=== PATIENT | female | born 1985 | race Caucasian/White ===

== ENCOUNTER 2018-12-15 23:14 | Inpatient (IN) | payer OTHER ==
[2018-12-15 23:20] VITALS: BMI 25.4
--- NOTE | 2018-12-16 00:54 | PDOC ---
*Physical Exam - Vital Signs Last Vital Signs Temp Pulse Resp BP Pulse Ox 98.0 F 74 18 114/69 100 12/15/18 23:18 12/15/18 23:18 12/15/18 23:18 12/15/18 23:18 12/15/18 23:18 ED Treatment Course - LABORATORY CBC & Chemistry Diagram: 12/16/18 02:11 12/16/18 02:11 Medical Decision Making - Medical Decision Making 12/16/18 00:54 Patient seen by the advanced practice provider under my direct supervision. Ancillary testing reviewed as necessary. I agree with plan as outlined by the advanced practice provider. *DC/Admit/Observation/Transfer Diagnosis at time of Disposition: Biliary colic - Referrals - Patient Instructions - Post Discharge Activity
[2018-12-16] MEDS ORDERED: morphine CARPU-JECT 4 MG/1 ML DISP.SYRIN IVPUSH ONE (00:55)
[2018-12-16] MEDS ORDERED: SODIUM CHLORIDE 1,000 ML IV STA (00:55)
--- NOTE | 2018-12-16 00:55 | PDOC ---
History of Present Illness - General Chief Complaint: Pain Stated Complaint: ABD PAIN Time Seen by Provider: 12/16/18 00:52 History Source: Patient Exam Limitations: No Limitations - History of Present Illness Travel History: No Initial Comments: 12/16/18 00:57 HISTORY OF PRESENT ILLNESS: 33-year-old woman with past medical history of gallstones who presents emergency department for evaluation of right upper quadrant pain and nausea which worsens after eating. Patient reports the pain started on Thursday is gotten worse over the past 2 days. Patient denies any fevers or chills. No recent travel or sick contacts. PAST MEDICAL HISTORY: Gallstones SURGICAL HISTORY: Denies ALLERGIES: No known drug allergies ETOH: Denies Tobacco: Denies Illicits: Denies REVIEW OF SYSTEMS General/Constitutional: Denies fever or chills. Denies weakness, weight change. HEENT: Denies change in vision. Denies ear pain or discharge. Denies sore throat. Cardiovascular: Denies chest pain or shortness of breath. Respiratory: Denies cough, wheezing, or hemoptysis. Gastrointestinal: see HPI Genitourinary: Denies dysuria, frequency, or change in urination. Musculoskeletal: Denies joint or muscle swelling or pain. Denies neck or back pain. Skin and breasts: Denies rash or easy bruising. Neurologic: Denies headache, vertigo, loss of consciousness, or loss of sensation. Psychiatric: Denies depression or anxiety. Endocrine: Denies increased thirst. Denies abnormal weight change. Hematologic/Lymphatic: Denies anemia, easy bleeding, or history of blood clots. Allergic/Immunologic: Denies hives or skin allergy. Denies latex allergy. PHYSICAL EXAM General Appearance: Well-appearing, appropriately dressed. No apparent distress , no intoxication. HEENT: EOMI, PERRLA, normal ENT inspection, normal voice, TMs normal, pharynx normal. No conjunctival pallor. No photophobia, scleral icterus. Neck: Supple. Trachea midline. No tenderness, rigidity, carotid bruit, stridor , lymphadenopathy, or thyromegaly. Respiratory/Chest: Lungs CTAB. No shortness of breath, chest tenderness, respiratory distress, accessory muscle use. No crackles, rales, rhonchi, stridor , wheezing, dullness Cardiovascular: RRR. S1, S2. No JVD, murmur, bradycardia, tachycardia. Vascular Pulses: Dorsalis-Pedis (R): 2+, Dorsalis-Pedis (L): 2+ Gastrointestinal/Abdominal: Normal bowel sounds. Abdomen soft, non-distended. Right upper quadrant tenderness with guarding. Positive Lara sign. Lymphatic: No adenopathy, tenderness. Musculoskeletal/Extremities: Normal inspection. FROM of all extremities, normal capillary refill. Pelvis Stable. No CVA tenderness. No tenderness to extremities, pedal edema, swelling, erythema or deformity. Integumentary: Appropriate color, dry, warm. No cyanosis, erythema, jaundice or rash Neurologic: appointment scheduler II-XII intact. Fully oriented, alert. Appropriate mood/affect. Motor strength 5/5. No appreciable EOM palsy, facial droop or sensory deficit. 12/16/18 03:48 Past History - Past Medical History Allergies/Adverse Reactions: Allergies Allergy/AdvReac Type Severity Reaction Status Date / Time No Known Allergies Allergy Verified 12/15/18 23:20 Home Medications: Ambulatory Orders Calcium Carbonate [Calcium] 500 mg PO DAILY 06/12/16 Ferrous Sulfate [Feosol] 325 mg PO DAILY 06/12/16 Ursodiol [Actigall] 300 mg PO BID 10/02/16 Ibuprofen [Motrin -] 600 mg PO Q4H PRN #30 tablet 10/08/16 Asthma: No Cancer: No Cardiac Disorders: No COPD: No Diabetes: No HTN: No Seizures: No Thyroid Disease: No - Reproductive History (#): 2 Para: 2 - Suicide/Smoking/Psychosocial Hx Smoking History: Never smoked Have you smoked in the past 12 months: No Hx Alcohol Use: No Drug/Substance Use Hx: No Substance Use Type: None Hx Substance Use Treatment: No *Physical Exam - Vital Signs Last Vital Signs Temp Pulse Resp BP Pulse Ox 98.0 F 74 18 114/69 100 12/15/18 23:18 12/15/18 23:18 12/15/18 23:18 12/15/18 23:18 12/15/18 23:18 ED Treatment Course - LABORATORY CBC & Chemistry Diagram: 12/16/18 05:56 12/16/18 05:56 Medical Decision Making - Medical Decision Making 12/16/18 00:59 A/P: 33-year-old woman with right upper quadrant pain for 3 days Right upper quadrant tenderness with guarding Positive Lara sign H&P is consistent with a cholecystitis. Differential diagnoses include pancreatitis, GERD, pneumonia CBC, CMP, lipase, type and screen, coags Right upper quadrant ultrasound Morphine 4 mg IV now Zofran 4 mg IV now Normal saline 1 L 12/16/18 02:23 Ultrasound as read by imaging insulation installer: There is cholelithiasis. Gallbladder wall is not thickened. Common bile duct is 5 mm. 12/16/18 03:49 CBC testing is normal. Chemistry is notable for an AST of 800 and ALTs of 599 with an alkaline phosphatase of 181. Normal bilirubin. I'll admit the patient for biliary colic with transaminitis. 12/16/18 04:[address] Talamantes who accepts patient for admission to under Dr. Killian *DC/Admit/Observation/Transfer Diagnosis at time of Disposition: Biliary colic, Transaminitis - Discharge Dispostion Condition at time of disposition: Fair Decision to Admit order: Yes - Referrals - Patient Instructions - Post Discharge Activity
[2018-12-16] MEDS ORDERED: ONDANSETRON 4 MG/2 ML VIAL IVPUSH ONE (00:56)
[2018-12-16] MEDS ORDERED: morphine SULFATE 4 MG/ML VIAL ONE (01:46)
[2018-12-16] MEDS ORDERED: ONDANSETRON 4 MG/2 ML VIAL ONE (01:46)
[2018-12-16 02:40] LABS: BASO % 0.3 % (0-2.0); EOS % 1.3 % (0-4.5); HEMATOCRIT 35.9 % (32.4-45.2); HEMOGLOBIN 11.8 GM/dL (10.7-15.3); LYMPH % 14.7 % (8-40); MCH 29.2 pg (25.7-33.7); MCHC 32.8 g/dl (32.0-36.0); MEAN PLT VOLUME 9.2 fl (7.5-11.1); MONO % 9.8 % (3.8-10.2); NEUT % 73.9 % (42.8-82.8); PLATELET COUNT 211 K/MM3 (134-434); RBC 4.03 M/mm3 (3.60-5.2); RDW 14.3 % (11.6-15.6); WHITE BLOOD COUNT 7.5 K/mm3 (4.0-10.0)
[2018-12-16 02:42] LABS: EPI CELLS 2.3 /HPF (0-5); PH,URINE 6.5 (5.0-8.0); URINE APPEARANCE CLEAR; URINE BACTERIA 74.7 /hpf (NEGATIVE); URINE BILIRUBIN NEGATIVE (NEGATIVE); URINE CASTS 3 /hpf (0-8); URINE COLOR YELLOW; URINE GLUCOSE (UA) NEGATIVE (NEGATIVE); URINE KETONE NEGATIVE (NEGATIVE); URINE LEUK ESTERASE NEGATIVE (NEGATIVE); URINE NITRITE NEGATIVE (NEGATIVE); URINE PROTEIN NEGATIVE (NEGATIVE); URINE RBC 1 /hpf (0-4); URINE WBC 3 /hpf (0-5)
[2018-12-16 03:07] LABS: ALBUMIN 3.5 g/dl (3.4-5.0); ALK PHOS 181 U/L (45-117); ANION GAP 5 MMOL/L (8-16); BILIRUBIN,TOTAL 0.6 mg/dL (0.2-1); BLOOD UREA NITROGEN 8 mg/dL (7-18); CALCIUM 8.5 mg/dL (8.5-10.1); CHLORIDE 107 mmol/L (98-107); CO2 27 mmol/L (21-32); CREATININE 0.6 mg/dL (0.55-1.3); GLUCOSE,RANDOM 123 mg/dL (74-106); LIPASE 187 U/L (73-393); POTASSIUM 3.9 mmol/L (3.5-5.1); SGOT/AST 800 U/L (15-37); SGPT/ALT 599 U/L (13-61); SODIUM 139 mmol/L (136-145); TOT PROT 7.2 g/dl (6.4-8.2)
[2018-12-16 03:30] LABS: URINE CRYSTALS 0 /hpf; YEAST 0 (NEGATIVE)
--- NOTE | 2018-12-16 04:24 | HP ---
CHIEF COMPLAINT: Abdominal pain PCP:none HISTORY OF PRESENT ILLNESS: 33 year old female with pmhx of RA presented to ED with one day history of sever RUQ abdominal pain that started yesterday , the pain is local 03/30 , worsening with food , never had similiar episode , she reports nausea but no vomiting . denies any fever, chills, headache, blurry vision , recent cold or sick contact denies any cp, sob , denies any urinary symptoms, denies leg selling. pt reports she has RA and she took injection for that every 2 weeks. ER course was notable for: (1)CBC, CMP (2)US abdomen (3) Recent Travel: denies PAST MEDICAL HISTORY: none PAST SURGICAL HISTORY: C section X 2 , Social History:has 3 kids Smoking:denies Alcohol:denies Drugs: denies Family History:none Allergies No Known Allergies Allergy (Verified 12/15/18 23:20) HOME MEDICATIONS: Home Medications Medication Instructions Recorded Calcium Carbonate [Calcium] 500 mg PO DAILY 06/12/16 Ferrous Sulfate [Feosol] 325 mg PO DAILY 06/12/16 Ursodiol [Actigall] 300 mg PO BID 10/02/16 Ibuprofen [Motrin -] 600 mg PO Q4H PRN #30 tablet 10/08/16 REVIEW OF SYSTEMS CONSTITUTIONAL: Absent: fever, chills, diaphoresis, generalized weakness, malaise, loss of appetite, weight change HEENT: Absent: rhinorrhea, nasal congestion, throat pain, throat swelling, difficulty swallowing, mouth swelling, ear pain, eye pain, visual changes CARDIOVASCULAR: Absent: chest pain, syncope, palpitations, irregular heart rate, lightheadedness , peripheral edema RESPIRATORY: Absent: cough, shortness of breath, dyspnea with exertion, orthopnea, wheezing, stridor, hemoptysis GASTROINTESTINAL: Absent: abdominal pain, abdominal distension, nausea, vomiting, diarrhea, constipation, melena, hematochezia GENITOURINARY: Absent: dysuria, frequency, urgency, hesitancy, hematuria, flank pain, genital pain MUSCULOSKELETAL: Absent: myalgia, arthralgia, joint swelling, back pain, neck pain SKIN: Absent: rash, itching, pallor HEMATOLOGIC/IMMUNOLOGIC: Absent: easy bleeding, easy bruising, lymphadenopathy, frequent infections ENDOCRINE: Absent: unexplained weight gain, unexplained weight loss, heat intolerance, cold intolerance NEUROLOGIC: Absent: headache, focal weakness or paresthesias, dizziness, unsteady gait, seizure, mental status changes, bladder or bowel incontinence PSYCHIATRIC: Absent: anxiety, depression, suicidal or homicidal ideation, hallucinations. PHYSICAL EXAMINATION Vital Signs - 24 hr 12/15/18 23:18 Temperature 98.0 F Pulse Rate 74 Respiratory 18 Rate Blood Pressure 114/69 O2 Sat by Pulse 100 Oximetry (%) GENERAL: AAOx3 in NAD HEAD: NC/AT EYES: EOMI, Conjunctiva clear, sclera anicteric ENT: moist mucous membrane NECK: Supple, no JVD LUNGS: CTA B/L, no crackles no wheezing no accessory muscle use. HEART: RRR, NSR, normal s1, s2,no M/R/G ABDOMEN: Soft, ND, RUQ mild tenderness, +BS 4 Q, no CVA Tenderness , - Lara LOWER EXTREMITIES: no edema, +2DP pulse, NEUROLOGICAL: No focal deficit. Normal speech. gait not observed. PSYCHIATRIC: Cooperative. Good eye contact. Appropriate mood and affect. SKIN: Warm, dry, Laboratory Results - last 24 hr 12/16/18 12/16/18 12/16/18 02:11 02:11 02:11 WBC 7.5 RBC 4.03 Hgb 11.8 Hct 35.9 D MCV 89.0 MCH 29.2 MCHC 32.8 RDW 14.3 Plt Count 211 MPV 9.2 Absolute Neuts (auto) 5.6 Neutrophils % 73.9 Lymphocytes % 14.7 D Monocytes % 9.8 D Eosinophils % 1.3 Basophils % 0.3 Nucleated RBC % 0 Sodium 139 Potassium 3.9 Chloride 107 Carbon Dioxide 27 Anion Gap 5 L BUN 8 Creatinine 0.6 Creat Clearance w eGFR 116.60 Random Glucose 123 H Calcium 8.5 Total Bilirubin 0.6 AST 800 H ALT 599 H Alkaline Phosphatase 181 H Total Protein 7.2 Albumin 3.5 Lipase 187 Urine Color Yellow Urine Appearance Clear Urine pH 6.5 Ur Specific [place] 1.018 Urine Protein Negative Urine Glucose (UA) Negative Urine Ketones Negative Urine Blood 2+ H Urine Nitrite Negative Urine Bilirubin Negative Urine Urobilinogen 1.0 Ur Leukocyte Esterase Negative Urine WBC (Auto) 3 Urine RBC (Auto) 1 Urine Casts (Auto) 3 U Pathogenic Cast Auto 0 U Epithel Cells (Auto) 2.3 U Sm Round Cell (Auto) 0 Urine Crystals (Auto) 0 Urine Bacteria (Auto) 74.7 Urine Yeast (Auto) 0 CBC, BMP 12/16/18 02:11 12/16/18 02:11 EKG: NSR , QTC 442 US abdmomen: gallbladder stone but no gallbladder wall thickening , CBD 0.4 mm ASSESSMENT/PLAN: 33 year old female with no pmhx presented to ED with 1 day history of RUQ abdominal pain admitted to obs M/S for biliary colic and tranasminities # Biliary colic * RUQ pain worsening with food * US with no signs of acute cholitis or CBD dilation * IV fluids * Pain control * Zofran for nausea * MRCP * consult GI Dr Kapadia * # transaminities * AST, ALT , ALP elevated * trend lab * if no improvement will send hep panel * denies alcohol or drug use * Gi consult # FEN * NS @ 100 CC/hr * Monitor lytes * NPO for now # Proph * DVTS:SCD, Hep SC TID * GI: no need for now # Dispo * obs , M/S # full code Visit type - Emergency Visit Emergency Visit: Yes ED Registration Date: 12/16/18 Care time: The patient presented to the Emergency Department on the above date and was hospitalized for further evaluation of their emergent condition. - New Patient This patient is new to me today: Yes Date on this admission: 12/16/18 - Critical Care Critical Care patient: No
[2018-12-16] MEDS ORDERED: ONDANSETRON 4 MG/2 ML VIAL IVPUSH PRN (04:59)
[2018-12-16] MEDS ORDERED: ACETAMINOPHEN 325 MG TABLET (FP) PO PRN (04:59)
[2018-12-16] MEDS ORDERED: SODIUM CHLORIDE 1,000 ML IV SCH (05:00)
--- NOTE | 2018-12-16 05:22 | PN ---
Teaching Attending Note Name of Resident: Ata Talamantes ATTENDING PHYSICIAN STATEMENT I saw and evaluated the patient. I reviewed the resident's note and discussed the case with the resident. I agree with the resident's findings and plan as documented. SUBJECTIVE: Patient is a 33-year-old woman with past medical history of gallstones who presents emergency department for evaluation of right upper quadrant pain and nausea which worsens after eating. Patient reports the pain started on Thursday is gotten worse over the past 2 days. Patient denies any fevers or chills. Had 2 bouts of vomiting. Says pain comes and goes. No change in bowel habit, SOB, chest pain, headache, dizziness, dysuria or frequency. Her LMP stopped yesterday. She is a single mother of 3 children and the youngest is 2 years old. Denies alcohol, tobacco or any illicit drug use. OBJECTIVE: Alert Vital Signs Period Temp Pulse Resp BP Sys/Mcgregor Pulse Ox Last 24 Hr 98.0 F 74 18 114/69 98-100 HEENT: No Jaundice, eye redness or discharge, PERRLA, EOMI. Normocephalic, atraumatic. External ears are normal and hearing is grossly intact. No nasal discharge. Neck: Supple, nontender. No palpable adenopathy or thyromegaly. No JVD Chest: Good effort. Clear to auscultation and percussion. Heart: Regular. No S3, rub or murmur Abdomen: Not distended, soft, nontender and no HSM. No rebound or guarding. Normal bowel sounds. Ext: Peripheral pulses intact. No leg edema. Skin: Warm and dry. No petechiae, rash or ecchymosis. Neuro: Alert. Oriented x3. CN 2-12 grossly intact. Sensation grossly intact in all four extremities and DTR are symmetric. Psych: Appropriate mood and affect. Good insight. Current Medications Generic Name Dose Route Start Last Admin Trade Name Freq PRN Reason Stop Dose Admin Acetaminophen 650 mg 12/16/18 04:59 Tylenol - PO Q4H PRN PAIN LEVEL 1-5 Heparin Sodium (Porcine) 5,000 unit 12/16/18 06:00 Heparin - SQ TID YEHUDA Sodium Chloride 1,000 mls @ 100 mls/hr 12/16/18 05:00 Normal Saline - IV ASDIR YEHUDA Ondansetron HCl 4 mg 12/16/18 04:59 Zofran Injection IVPUSH Q6H PRN NAUSEA Home Medications Medication Instructions Recorded Calcium Carbonate [Calcium] 500 mg PO DAILY 06/12/16 Ferrous Sulfate [Feosol] 325 mg PO DAILY 06/12/16 Ursodiol [Actigall] 300 mg PO BID 10/02/16 Ibuprofen [Motrin -] 600 mg PO Q4H PRN #30 tablet 10/08/16 Abnormal Lab Results 12/16/18 12/16/18 02:11 02:11 Anion Gap 5 L Random Glucose 123 H AST 800 H ALT 599 H Alkaline Phosphatase 181 H Urine Blood 2+ H ASSESSMENT AND PLAN: 1. Cholelithiasis - Sonogram showed only cholelithiasis with no significant gall bladder abnormality. Patient is now painfree after getting morphine. No overt evidence of infection, so will withhold antibiotics. Will trend LFTs, get MRCP, hepatitis serology and consult GI. Give IV NS and zofran PRN. Check HbA1c. 2. DVT prophylaxis - Lovenox 40 mg SQ q 24 hours. 3. Advance directives - Full code
[2018-12-16] MEDS ORDERED: HEPARIN NA (PORCINE) 5,000 UNITS/ML 1ML VIAL ONE (05:53)
[2018-12-16] MEDS: HEPARIN NA (PORCINE) 5,000 UNITS/ML 1ML VIAL SQ SCH ×3 (05:53→22:22)
[2018-12-16 06:13] LABS: BASO % 0.4 % (0-2.0); EOS % 1.2 % (0-4.5); HEMATOCRIT 32.6 % (32.4-45.2); HEMOGLOBIN 10.7 GM/dL (10.7-15.3); LYMPH % 22.5 % (8-40); MCH 28.8 pg (25.7-33.7); MCHC 32.8 g/dl (32.0-36.0); MEAN CELL VOLUME 87.7 fl (80-96); MEAN PLT VOLUME 9.3 fl (7.5-11.1); MONO % 10.9 % (3.8-10.2); PLATELET COUNT 181 K/MM3 (134-434); RBC 3.71 M/mm3 (3.60-5.2); WHITE BLOOD COUNT 4.6 K/mm3 (4.0-10.0)
[2018-12-16 06:42] LABS: INR 1.04 (0.83-1.09); PROTHROMBIN TIME (PATIENT) 12.3 SEC (9.7-13.0)
[2018-12-16 06:44] LABS: ACTIVATED PTT 29.4 SECONDS (25.2-36.5)
[2018-12-16 06:46] LABS: ALK PHOS 171 U/L (45-117); AMYLASE 121 U/L (25-115); ANION GAP 7 MMOL/L (8-16); BILIRUBIN,TOTAL 0.4 mg/dL (0.2-1); BLOOD UREA NITROGEN 7 mg/dL (7-18); CALCIUM 7.6 mg/dL (8.5-10.1); CHLORIDE 111 mmol/L (98-107); CO2 24 mmol/L (21-32); CREATININE 0.6 mg/dL (0.55-1.3); GLUCOSE,RANDOM 100 mg/dL (74-106); LIPASE 1154 U/L (73-393); PHOSPHOROUS 3.7 mg/dL (2.5-4.9); SGOT/AST 982 U/L (15-37); SGPT/ALT 780 U/L (13-61); SODIUM 143 mmol/L (136-145); TOT PROT 6.1 g/dl (6.4-8.2)
[2018-12-16] MEDS ORDERED: SODIUM CHLORIDE 500 ML IV STA (07:00)
[2018-12-16] MEDS ORDERED: LACTATED RINGERS SOLUTION 1,000 ML/1,000 ML INFUS.BAG IV SCH ×3 (07:15→08:03)
[2018-12-16] MEDS ORDERED: PIPERACILLIN/TAZOB 3.375 GM 3.375 GM in DEXTROSE 5%-WATER - 50 ML IVPB ONE (08:00)
[2018-12-16] MEDS ORDERED: PIPERACILLIN/TAZOB 3.375 GM 3.375 GM/50 ML BAG IVPB ONE (08:11)
--- NOTE | 2018-12-16 10:46 | CON.GI ---
Consult Consult Specialty:: GI Referred by:: Hospitalist Service Reason for Consultation:: RUQ pain, abnormal liver chemistries - History of Present Illness Chief Complaint: RUQ pain from this past Thursday. [employer] App[employer] [id number] utilized History of Present Illness: 33F admitted through [facility] ER for evaluation of intermittent RUQ pain. The patient states being in [place] up until Thursday, when she began experiencing intermittent RUQ pain. The pain began after meals, diminishing her appetite. It became progressively more intense thursday and thursday during the day and after dinner on Thursday, she vomited. She described vomiting that night in the ER as well. Triage vitals revealed T: 98.3 P: 71 BP: 110/61. She had a normal CBC, with AST: 800 ALT: 599 ALP: 181 TB: 0.4. She was evaluated 10/07 at [facility] while . She had been on ursodiol at that time for 2 months for suspected cholestasis of . She was pain free at that time and abdominal US revealed gallstones. Liver chemistries improved throughout her admission and she remained asymptoimatic. Currently, she states that this was the first episode of this type of pain. She denies recent travel, sick contacts , known history of infection with viral hepatitides (note from 10/07 states that she appeared to have immunity to hep B), IVDU, alcohol use. Her father had alcohol induced liver cirrhosis, otherwise there is no family history of liver disease. Abdominal US on admission revealed gallstone, normal thickness of gallbladder wall and non dilated biliary tract. Sonographic vargas's sign was not mentioned. Lipase has risen this morning. Ms. Thompson is currently pain free. There is no family history of colorectal cancer or other GI malignancy. Home medication list includes ursodiol but she is not taking this. She was on prednisone up until 2 months ago. She has since been changed to Cimzia as treatment for her RA. - History Source History Provided By: Patient, Medical Record Limitations to Obtaining History: No Limitations - Past Medical History Hepatobiliary: Yes: Cholelithiasis, Other (cholestasis of during 2nd and 3rd ) Rheumatology: Yes: Rheumatoid Arthritis - Past Surgical History Past Surgical History: Yes: (x2) - Alcohol/Substance Use Hx Alcohol Use: No History of Substance Use: reports: None - Smoking History Smoking history: Never smoked Have you smoked in the past 12 months: No - Social History Usual Living Arrangement: With Significant Other ADL: Independent Occupation: former decontamination worker Place of : Other ([place]) Came to [place]year[place] 2003 History of Recent Travel: No Home Medications - Allergies Allergies/Adverse Reactions: Allergies Allergy/AdvReac Type Severity Reaction Status Date / Time No Known Allergies Allergy Verified 12/15/18 23:20 - Home Medications Home Medications: Ambulatory Orders Calcium Carbonate [Calcium] 500 mg PO DAILY 06/12/16 Ferrous Sulfate [Feosol] 325 mg PO DAILY 06/12/16 Ursodiol [Actigall] 300 mg PO BID 10/02/16 Ibuprofen [Motrin -] 600 mg PO Q4H PRN #30 tablet 10/08/16 Review of Systems - Review of Systems Constitutional: reports: Chills. denies: Fever Cardiovascular: denies: Chest Pain Respiratory: denies: Cough, SOB Gastrointestinal: reports: Abdominal Pain, Vomiting. denies: Diarrhea, Rectal Bleeding Musculoskeletal: reports: Joint Pain Physical Exam-GI Vital Signs: Vital Signs Temperature 98.1 F 12/16/18 09:02 Pulse Rate 61 12/16/18 09:02 Respiratory Rate 18 12/16/18 09:02 Blood Pressure 102/76 12/16/18 09:02 O2 Sat by Pulse Oximetry (%) 98 12/16/18 09:02 Constitutional: Yes: Calm Eyes: No: Sclera Icterus Cardiovascular: Yes: Regular Rate and Rhythm. No: Murmur Respiratory: Yes: CTA Bilaterally Gastrointestinal Inspection: Yes: Scars (Low horizontal pelvic surgical scar) ...Auscultate: Yes: Normoactive Bowel Sounds ...Palpate: Yes: Soft. No: Hepatomegaly, Splenomegaly, Tenderness ...Percussion: No: Tympanitic Edema: No (No LE edema) Neurological: Yes: Alert Labs: CBC, BMP 12/16/18 05:56 12/16/18 05:56 INR, PTT INR 1.04 (0.83-1.09) 12/16/18 05:56 Laboratory Tests 10/05/16 10/08/16 12/16/18 06:20 06:30 02:11 AST 25 D 800 H Alkaline Phosphatase 194 H 181 H ALT 237 H D 599 H Total Amylase Lipase BLAKE Screen Positive H 12/16/18 05:56 AST 982 H Alkaline Phosphatase 171 H ALT 780 H Total Amylase 121 H Lipase 1154 H BLAKE Screen Imaging - Results Ultrasound: Report Reviewed Problem List - Problems (1) Biliary colic Assessment/Plan: Suspect biliary colic +/- passage of CBD stone/sludge Ms. Thompson is currently asymptomatic and normotensive. She remains afrebrile with normal CBC (however, is on Cimzia for RA treatment)and is not jaundiced. No biliary tract dilation noted on US. Treatment plan for now: Agree withth MRI/MRCP of the abdomen for further evaluation of biliary tract NPO except meds IV Hydration: Lactated ringer at 200cc/hr. If remains asymptomatic can decrease to 150cc/hr Monitor liver chemistries and avoid hepatotoxic agents (tylenol was already discontinued) Hepatitis A/B/C serologies ordered for AM IV abx for now. Continue Zosyn (discussed with IM Senior Financial Scooby this morning) Surgical consult No indication for emergent ERCP at this time. Depending on clinical course and serologis testing, I did discuss the possibility of need for ERCP with Ms. Thompson. We discussed this via [employer] call center agent [phone]. We discussed potential risks of the procedure like but not limited to bleeding, perforation requiring surgery to repair, infection, sedation medication effects , pancreatitis, all of which could be potentially life threatening. She has agreed to the procedure if it was felt to be clinically indicated. Will follow with you Code(s): K80.50 - CALCULUS OF BILE DUCT W/O CHOLANGITIS OR CHOLECYST W/O OBST
--- NOTE | 2018-12-16 11:51 | EKG ---
Test Reason : Blood Pressure : / mmHG Vent. Rate : 062 BPM Atrial Rate : 062 BPM P-R Int : 180 ms QRS Dur : 086 ms QT Int : 436 ms P-R-T Axes : 024 020 013 degrees QTc Int : 442 ms NORMAL SINUS RHYTHM LOW VOLTAGE QRS CANNOT RULE OUT ANTERIOR INFARCT , AGE UNDETERMINED ABNORMAL ECG NO PREVIOUS ECGS AVAILABLE Confirmed by WILLIAM CHAN MD ([id number]) on 12/16/2018 11:51:13 AM Referred By: Confirmed By:WILLIAM CHAN MD
--- NOTE | 2018-12-16 12:35 | CONSULT ---
- Consultation REQUESTING PROVIDER: Low SANTIAGO CONSULT REQUEST: We have been asked to surgically evaluate this patient for symptomatic gallbladder disease. PCP:Syed Mcmahon HISTORY OF PRESENT ILLNESS: 33 y/o female with known cholelithiasis presented with 24-48 hours of post prandial nausea/vomiting and RUQ sharp and colicky abdominal pain; not relieved by or made worse by anything; she came to the ER for evaluation; she denies dark urine/light stools or any other GI// [employer] c/o; unclear why she had an US in the past that found the gallstones. Pain relieved in the ER w/morphine; she states she no longer has any pain. PMHx: rheumatoid arthritis PSHx: C-S Home Medications Medication Instructions Recorded Calcium Carbonate [Calcium] 500 mg PO DAILY 06/12/16 Ferrous Sulfate [Feosol] 325 mg PO DAILY 06/12/16 Ursodiol [Actigall] 300 mg PO BID 10/02/16 Ibuprofen [Motrin -] 600 mg PO Q4H PRN #30 tablet 10/08/16 Allergies Allergy/AdvReac Type Severity Reaction Status Date / Time No Known Allergies Allergy Verified 12/15/18 23:20 REVIEW OF SYSTEMS: CONSTITUTIONAL: Absent: fever, chills, diaphoresis, generalized weakness, malaise, loss of appetite, weight change CARDIOVASCULAR: Absent: chest pain, syncope, palpitations, irregular heart rate, lightheadedness , peripheral edema RESPIRATORY: Absent: cough, shortness of breath, dyspnea with exertion, wheezing, stridor, hemoptysis GASTROINTESTINAL: Absent: abdominal pain, abdominal distension, nausea, vomiting, diarrhea, constipation, melena, hematochezia GENITOURINARY: Absent: dysuria, frequency, urgency, hesitancy, hematuria, flank pain, genital pain MUSCULOSKELETAL: Present: myalgia, arthralgia, joint swelling, back pain, neck pain SKIN: Absent: rash, itching, pallor HEMATOLOGIC/IMMUNOLOGIC: Absent: easy bleeding, easy bruising, lymphadenopathy NEUROLOGIC: Absent: headache, focal weakness, paresthesias, dizziness, unsteady gait, seizure, mental status changes, bladder or bowel incontinence PSYCHIATRIC: Absent: anxiety, depression, suicidal or homicidal ideation, hallucinations. PHYSICAL EXAM: GENERAL: Awake, alert, and fully oriented, in no acute distress. HEAD: Normal with no signs of trauma. EYES: PERRL, sclera anicteric, conjunctiva clear. NECK: Normal ROM, supple without lymphadenopathy, JVD, or masses. ABDOMEN: Soft, nontender, not distended, normoactive bowel sounds, no guarding, no rebound, no masses. No organomegaly. No hernias. MUSCULOSKELETAL: Normal ROM at all joints. No bony deformities or tenderness. No CVA tenderness. UPPER EXTREMITIES: 2+ pulses, warm, well-perfused. No cyanosis. Cap refill <2 seconds. No peripheral edema. LOWER EXTREMITIES: 2+ pulses, warm, well-perfused. No calf tenderness. No peripheral edema. NEUROLOGICAL: Normal speech, gait not observed. PSYCH: Cooperative. Good eye contact. Appropriate mood and affect. SKIN: Warm, dry, normal turgor, no rashes or lesions noted. Vital Signs Temperature 98.1 F 12/16/18 09:02 Pulse Rate 61 12/16/18 09:02 Respiratory Rate 18 12/16/18 09:02 Blood Pressure 102/76 12/16/18 09:02 O2 Sat by Pulse Oximetry (%) 98 12/16/18 09:02 Lab Results WBC 4.6 K/mm3 (4.0-10.0) 12/16/18 05:56 RBC 3.71 M/mm3 (3.60-5.2) 12/16/18 05:56 Hgb 10.7 GM/dL (10.7-15.3) 12/16/18 05:56 Hct 32.6 % (32.4-45.2) 12/16/18 05:56 MCV 87.7 fl (80-96) 12/16/18 05:56 MCHC 32.8 g/dl (32.0-36.0) 12/16/18 05:56 RDW 14.0 % (11.6-15.6) 12/16/18 05:56 Plt Count 181 K/MM3 (134-434) 12/16/18 05:56 Sodium 143 mmol/L (136-145) 12/16/18 05:56 Potassium 4.0 mmol/L (3.5-5.1) 12/16/18 05:56 Chloride 111 mmol/L (98-107) H 12/16/18 05:56 Carbon Dioxide 24 mmol/L (21-32) 12/16/18 05:56 Anion Gap 7 MMOL/L (8-16) L 12/16/18 05:56 BUN 7 mg/dL (7-18) 12/16/18 05:56 Creatinine 0.6 mg/dL (0.55-1.3) 12/16/18 05:56 Random Glucose 100 mg/dL (74-106) 12/16/18 05:56 Calcium 7.6 mg/dL (8.5-10.1) L 12/16/18 05:56 INR 1.04 (0.83-1.09) 12/16/18 05:56 US present and past reviewed. CMP reviewed IMP:biliary coloic; possible CBD stone (passed); possible gallstone pancreatitis PLAN: Suggest NPO/IVF/MRCP; trend LFT's and amylase and lipase; will need lap daniela possible open; d/w patient; will f/u. Nicholas Love MD FACS
--- NOTE | 2018-12-16 14:21 | PN ---
Physical Exam: SUBJECTIVE: Patient seen and examined at bedside. Denies chest pain or shortness of breath. OBJECTIVE: Vital Signs Period Temp Pulse Resp BP Sys/Mcgregor Pulse Ox Last 24 Hr 97.5 F-98.2 F 61-100 18-20 87-141/32-76 98-100 GENERAL: NAD HEAD: Atraumatic/Normocephalic. EYES:EOMI Sclera Clear No scleral icterus appreciated ENT: MMM NECK: Trachea midline, full range of motion, supple. LUNGS: CTAB HEART: RRR No MRG S1S2 ABDOMEN: Negtive Lara's sign. Nontender nondistended. EXTREMITIES: No CCE NEUROLOGICAL: Cranial nerves II through XII grossly intact. . PSYCH: Normal mood, normal affect. SKIN: No jaundice appreciated Laboratory Results - last 24 hr 12/16/18 12/16/18 12/16/18 02:11 02:11 02:11 WBC 7.5 RBC 4.03 Hgb 11.8 Hct 35.9 D MCV 89.0 MCH 29.2 MCHC 32.8 RDW 14.3 Plt Count 211 MPV 9.2 Absolute Neuts (auto) 5.6 Neutrophils % 73.9 Lymphocytes % 14.7 D Monocytes % 9.8 D Eosinophils % 1.3 Basophils % 0.3 Nucleated RBC % 0 PT with INR INR PTT (Actin FS) Sodium 139 Potassium 3.9 Chloride 107 Carbon Dioxide 27 Anion Gap 5 L BUN 8 Creatinine 0.6 Creat Clearance w eGFR 116.60 Random Glucose 123 H Calcium 8.5 Phosphorus Magnesium Total Bilirubin 0.6 AST 800 H ALT 599 H Alkaline Phosphatase 181 H Total Protein 7.2 Albumin 3.5 Total Amylase Lipase 187 Urine Color Yellow Urine Appearance Clear Urine pH 6.5 Ur Specific Downs 1.018 Urine Protein Negative Urine Glucose (UA) Negative Urine Ketones Negative Urine Blood 2+ H Urine Nitrite Negative Urine Bilirubin Negative Urine Urobilinogen 1.0 Ur Leukocyte Esterase Negative Urine WBC (Auto) 3 Urine RBC (Auto) 1 Urine Casts (Auto) 3 U Pathogenic Cast Auto 0 U Epithel Cells (Auto) 2.3 U Sm Round Cell (Auto) 0 Urine Crystals (Auto) 0 Urine Bacteria (Auto) 74.7 Urine Yeast (Auto) 0 Acetaminophen 12/16/18 12/16/18 12/16/18 05:56 05:56 05:56 WBC 4.6 RBC 3.71 Hgb 10.7 Hct 32.6 MCV 87.7 MCH 28.8 MCHC 32.8 RDW 14.0 Plt Count 181 MPV 9.3 Absolute Neuts (auto) 3.0 Neutrophils % 65.0 Lymphocytes % 22.5 D Monocytes % 10.9 H Eosinophils % 1.2 Basophils % 0.4 Nucleated RBC % 0 PT with INR 12.30 INR 1.04 PTT (Actin FS) 29.4 Sodium 143 Potassium 4.0 Chloride 111 H Carbon Dioxide 24 Anion Gap 7 L BUN 7 Creatinine 0.6 Creat Clearance w eGFR 116.60 Random Glucose 100 Calcium 7.6 L Phosphorus 3.7 Magnesium 2.0 Total Bilirubin 0.4 AST 982 H ALT 780 H Alkaline Phosphatase 171 H Total Protein 6.1 L Albumin 3.0 L Total Amylase 121 H Lipase 1154 H Urine Color Urine Appearance Urine pH Ur Specific Downs Urine Protein Urine Glucose (UA) Urine Ketones Urine Blood Urine Nitrite Urine Bilirubin Urine Urobilinogen Ur Leukocyte Esterase Urine WBC (Auto) Urine RBC (Auto) Urine Casts (Auto) U Pathogenic Cast Auto U Epithel Cells (Auto) U Sm Round Cell (Auto) Urine Crystals (Auto) Urine Bacteria (Auto) Urine Yeast (Auto) Acetaminophen < 2.0 L Active Medications Generic Name Dose Route Start Last Admin Trade Name Freq PRN Reason Stop Dose Admin Heparin Sodium (Porcine) 5,000 unit 12/16/18 06:00 12/16/18 05:53 Heparin - SQ 5,000 unit TID YEHUDA Administration Lactated Ringer's 1,000 ml in 1,000 mls @ 250 mls/hr 12/16/18 08:03 12/16/18 08:12 Lactated Ringers Solution IV 250 mls/hr ASDIR YEHUDA Administration Ondansetron HCl 4 mg 12/16/18 04:59 Zofran Injection IVPUSH Q6H PRN NAUSEA ASSESSMENT/PLAN: 33 year old female with a significant past medical history of rheumatoid arthritis presented to [facility] with a 1 day history of RUQ abdominal pain. #Biliary collic; possible CBD stone (passed); possible gallstone pancreatitis * Sonogram showed only cholelithiasis with no significant gall bladder abnormality. CBD * Will trend LFTs, amylase, lipase * get MRCP. AST/ALT 982/780 respectively. Lipase 1154. * Lactated Ringer's @250cc/hr * Dr Monroe on board. P may require ERCP later on during Hospital course. Procedure explained to pt in detail by Ericka. Pt demonstrates understanding of risks and benefits of procedure. * Dr Love Surgery on board---> will need lap daniela possible open. #FEN * LR@250cc/hr * Monitor Electrolytes * NPO #DVT ppx * Lovenox 40 SQ Daily Dispo: * Med-Sug Visit type - Emergency Visit Emergency Visit: Yes ED Registration Date: 12/16/18 Care time: The patient presented to the Emergency Department on the above date and was hospitalized for further evaluation of their emergent condition. - New Patient This patient is new to me today: Yes Date on this admission: 12/16/18 - Critical Care Critical Care patient: No - Discharge Referral Referred to [facility] Med P.C.: No
--- NOTE | 2018-12-16 14:45 | PN ---
Teaching Attending Note Name of Resident: Epifanio Azar ATTENDING PHYSICIAN STATEMENT I saw and evaluated the patient. I reviewed the resident's note and discussed the case with the resident. I agree with the resident's findings and plan as documented. SUBJECTIVE: Patient is feeling better with no acute distress, pain improved. On IVF now. OBJECTIVE: Vital Signs Temperature 97.5 F L 12/16/18 13:35 Pulse Rate 100 H 12/16/18 13:35 Respiratory Rate 20 12/16/18 13:35 Blood Pressure 141/67 12/16/18 13:35 O2 Sat by Pulse Oximetry (%) 98 12/16/18 09:02 EXAM: GENERAL: The patient is awake, alert, and fully oriented, in no acute distress. HEAD: Normal with no signs of trauma. EYES: PERRL, extraocular movements intact, sclera anicteric, conjunctiva clear. ENT: Ears normal, oropharynx clear without exudates, moist mucous membranes. NECK: Trachea midline, full range of motion, supple. LUNGS: Breath sounds equal, clear to auscultation bilaterally, no wheezes, no crackles, no accessory muscle use. HEART: Regular rate and rhythm, S1, S2 without murmur, rub or gallop. ABDOMEN: Soft, mild mid-epigastric tendermness, ND, normoactive bowel sounds, no guarding, no rebound, no hepatosplenomegaly, no masses appreciated. EXTREMITIES: 2+ pulses, warm, well-perfused, no edema. NEUROLOGICAL: Cranial nerves II through XII grossly intact. Normal speech, gait not observed. PSYCH: Normal mood, normal affect. SKIN: Warm, dry, normal turgor, no rashes or lesions noted CBCD WBC 4.6 K/mm3 (4.0-10.0) 12/16/18 05:56 RBC 3.71 M/mm3 (3.60-5.2) 12/16/18 05:56 Hgb 10.7 GM/dL (10.7-15.3) 12/16/18 05:56 Hct 32.6 % (32.4-45.2) 12/16/18 05:56 MCV 87.7 fl (80-96) 12/16/18 05:56 MCHC 32.8 g/dl (32.0-36.0) 12/16/18 05:56 RDW 14.0 % (11.6-15.6) 12/16/18 05:56 Plt Count 181 K/MM3 (134-434) 12/16/18 05:56 MPV 9.3 fl (7.5-11.1) 12/16/18 05:56 CMP Sodium 143 mmol/L (136-145) 12/16/18 05:56 Potassium 4.0 mmol/L (3.5-5.1) 12/16/18 05:56 Chloride 111 mmol/L (98-107) H 12/16/18 05:56 Carbon Dioxide 24 mmol/L (21-32) 12/16/18 05:56 Anion Gap 7 MMOL/L (8-16) L 12/16/18 05:56 BUN 7 mg/dL (7-18) 12/16/18 05:56 Creatinine 0.6 mg/dL (0.55-1.3) 12/16/18 05:56 Creat Clearance w eGFR 116.60 (>60) 12/16/18 05:56 Random Glucose 100 mg/dL (74-106) 12/16/18 05:56 Calcium 7.6 mg/dL (8.5-10.1) L 12/16/18 05:56 Total Bilirubin 0.4 mg/dL (0.2-1) 12/16/18 05:56 AST 982 U/L (15-37) H 12/16/18 05:56 ALT 780 U/L (13-61) H 12/16/18 05:56 Alkaline Phosphatase 171 U/L (45-117) H 12/16/18 05:56 Total Protein 6.1 g/dl (6.4-8.2) L 12/16/18 05:56 Albumin 3.0 g/dl (3.4-5.0) L 12/16/18 05:56 Current Medications Generic Name Dose Route Start Last Admin Trade Name Freq PRN Reason Stop Dose Admin Heparin Sodium (Porcine) 5,000 unit 12/16/18 06:00 12/16/18 05:53 Heparin - SQ 5,000 unit TID YEHUDA Administration Lactated Ringer's 1,000 ml in 1,000 mls @ 250 mls/hr 12/16/18 08:03 12/16/18 08:12 Lactated Ringers Solution IV 250 mls/hr ASDIR YEHUDA Administration Ondansetron HCl 4 mg 12/16/18 04:59 Zofran Injection IVPUSH Q6H PRN NAUSEA Home Medications Medication Instructions Recorded Calcium Carbonate [Calcium] 500 mg PO DAILY 06/12/16 Ferrous Sulfate [Feosol] 325 mg PO DAILY 06/12/16 Ursodiol [Actigall] 300 mg PO BID 10/02/16 Ibuprofen [Motrin -] 600 mg PO Q4H PRN #30 tablet 10/08/16 Laboratory Tests 12/16/18 12/16/18 02:11 05:56 Random Glucose 123 H 100 AST 800 H 982 H ALT 599 H 780 H Alkaline Phosphatase 181 H 171 H Lipase 187 1154 H Acetaminophen < 2.0 L US of abdomen: Gallstones ASSESSMENT AND PLAN: Patient is a 33yo female with PMHx of RA , presented with RUQ abdominal pain. # Acute biliary colic due to Gallstones: IVF LR at 200cc/hr. NPO, given one dose of zosyn. # Acute transaminitis: will trend the LFts, continues to trend up. GI/Surgery on board, possible lap chol. as per GI MRCp of abdomen ordered. DVT Px; heparin
[2018-12-16] MEDS: MORPHINE SULFATE 2 MG/ML VIAL IVPUSH PRN (16:51)
[2018-12-16] MEDS: LACTATED RINGERS SOLUTION 1,000 ML/1,000 ML INFUS.BAG IV SCH (16:52)
[2018-12-16 22:25] LABS: ALBUMIN 3.1 g/dl (3.4-5.0); BILIRUBIN,TOTAL 1.3 mg/dL (0.2-1); TOT PROT 6.2 g/dl (6.4-8.2)
[2018-12-17] MEDS: HEPARIN NA (PORCINE) 5,000 UNITS/ML 1ML VIAL SQ SCH (05:49)
[2018-12-17 07:56] LABS: HEMATOCRIT 32.9 % (32.4-45.2); HEMOGLOBIN 10.9 GM/dL (10.7-15.3); MCH 28.8 pg (25.7-33.7); MEAN CELL VOLUME 87.3 fl (80-96); MEAN PLT VOLUME 9.4 fl (7.5-11.1); PLATELET COUNT 186 K/MM3 (134-434); RBC 3.77 M/mm3 (3.60-5.2); RDW 14.3 % (11.6-15.6); WHITE BLOOD COUNT 5.7 K/mm3 (4.0-10.0)
[2018-12-17 08:33] LABS: ALK PHOS 171 U/L (45-117); ANION GAP 6 MMOL/L (8-16); BILIRUBIN,DIRECT 1.3 mg/dL (0.0-0.2); BLOOD UREA NITROGEN 5 mg/dL (7-18); CALCIUM 8.1 mg/dL (8.5-10.1); CHLORIDE 109 mmol/L (98-107); CO2 26 mmol/L (21-32); CREATININE 0.5 mg/dL (0.55-1.3); GLUCOSE,RANDOM 80 mg/dL (74-106); MAGNESIUM 2.6 mg/dL (1.8-2.4); PHOSPHOROUS 3.1 mg/dL (2.5-4.9); POTASSIUM 3.4 mmol/L (3.5-5.1); SGOT/AST 417 U/L (15-37); SGPT/ALT 755 U/L (13-61); SODIUM 140 mmol/L (136-145); TOT PROT 6.3 g/dl (6.4-8.2)
[2018-12-17] MEDS ORDERED: POTASSIUM CHLORIDE TABS 20 MEQ TABLET.ER (FP) PO ONE (09:13)
[2018-12-17] MEDS ORDERED: INDOMETHACIN 50 MG RECTAL SUPPOSITORY PR ONE (10:16)
[2018-12-17] MEDS: KCL 10 MEQ IVPB 10 MEQ/100 ML INFUS.BAG IVPB SCH ×3 (10:21→12:14)
[2018-12-17] MEDS: LACTATED RINGERS SOLUTION 1,000 ML/1,000 ML INFUS.BAG IV SCH (11:49)
--- NOTE | 2018-12-17 12:10 | PN.GI ---
GI Progress Note Subjective: No acute events. patient states feeling well, denies abdominal pain Rising bilirubin noted on repeat labs - Objective Vital Signs: Vital Signs Temperature 97.9 F 12/17/18 06:00 Pulse Rate 59 L 12/17/18 06:00 Respiratory Rate 20 12/17/18 06:00 Blood Pressure 108/49 L 12/17/18 06:00 O2 Sat by Pulse Oximetry (%) 100 12/16/18 21:00 Constitutional: Calm Eyes: No: Sclera Icterus Cardiovascular: Yes: Regular Rate and Rhythm Respiratory: Yes: CTA Bilaterally Gastrointestinal Inspection: No: Distention ...Auscultate: Yes: Normoactive Bowel Sounds ...Palpate: Yes: Soft. No: Hepatomegaly, Splenomegaly, Tenderness ...Percussion: No: Tympanitic Edema: No (No LE edema) Neurological: Yes: Alert Labs: CBC, BMP 12/17/18 06:30 12/17/18 06:30 INR, PTT INR 1.04 (0.83-1.09) 12/16/18 05:56 Hepatic Panel Total Bilirubin 2.0 mg/dL (0.2-1) H 12/17/18 06:30 Direct Bilirubin 1.3 mg/dL (0.0-0.2) H 12/17/18 06:30 AST 417 U/L (15-37) H 12/17/18 06:30 ALT 755 U/L (13-61) H 12/17/18 06:30 Alkaline Phosphatase 171 U/L (45-117) H 12/17/18 06:30 Albumin 3.0 g/dl (3.4-5.0) L 12/17/18 06:30 - ....Imaging MRI: Image Reviewed (? of filling defect in CBD) Problem List - Problems (1) Biliary colic Assessment/Plan: Clinically well Rising bilirubin with ? of filling defect noted on MRCP images. Placed call to discuss with Dr. Yeung. left message. Awaiting callback NPO IV Hydration IV Abx Likely for ERCP this afternoon. Explained this to patient (as outlined in detail in yesterday's consultation) and discussed with Dr. Schwab. Indocin suppository Code(s): K80.50 - CALCULUS OF BILE DUCT W/O CHOLANGITIS OR CHOLECYST W/O OBST
--- NOTE | 2018-12-17 12:38 | PN ---
Progress Note (short form) - Note Progress Note: Attending Surgeon Seen in f/u; no c/o VSS AF abdo-soft; flat and non tender LFT's remain elevated and bili rising MRCP-? filling defect CBD IMP: r/o choledocholithiasis PLAN: Planning for ERCP and related procedures; if clinically stable and improved for lap daniela 12/20/18. Nicholas Love MD FACS
[2018-12-17] MEDS ORDERED: PT OWN MED DRAWER 7, Y5N ONE ×3 (13:23→21:40)
--- NOTE | 2018-12-17 14:27 | PN ---
Physical Exam: SUBJECTIVE: Patient seen and examined at bedside. No acute events overnight. Remains afebrile. OBJECTIVE: Vital Signs Period Temp Pulse Resp BP Sys/Mcgregor Pulse Ox Last 24 Hr 97.9 F-98.4 F 59-71 18-20 96-119/49-77 98-100 GENERAL: No acute distress, pleasant HEAD: Atraumatic/Normocephalic. EYES:EOMI Sclera Clear No scleral icterus appreciated ENT: MMM NECK: Trachea midline, full range of motion, supple. LUNGS: CTAB HEART: RRR No MRG S1S2 ABDOMEN: Negtive Lara's sign. Abdomen is soft and nontender EXTREMITIES: No CCE NEUROLOGICAL: Cranial nerves II through XII grossly intact. . PSYCH: Normal mood, normal affect. SKIN: No jaundice appreciated Laboratory Results - last 24 hr 12/16/18 12/17/18 12/17/18 18:30 06:30 06:30 WBC 5.7 RBC 3.77 Hgb 10.9 Hct 32.9 MCV 87.3 MCH 28.8 MCHC 33.0 RDW 14.3 Plt Count 186 MPV 9.4 Sodium 140 Potassium 3.4 L Chloride 109 H Carbon Dioxide 26 Anion Gap 6 L BUN 5 L Creatinine 0.5 L Creat Clearance w eGFR 143.91 Random Glucose 80 Calcium 8.1 L Phosphorus 3.1 Magnesium 2.6 H Total Bilirubin 1.3 H 2.0 H Direct Bilirubin 1.0 H 1.3 H AST 641 H 417 H ALT 797 H 755 H Alkaline Phosphatase 173 H 171 H Total Protein 6.2 L 6.3 L Albumin 3.1 L 3.0 L Blood Type Antibody Screen 12/17/18 10:27 WBC RBC Hgb Hct MCV MCH MCHC RDW Plt Count MPV Sodium Potassium Chloride Carbon Dioxide Anion Gap BUN Creatinine Creat Clearance w eGFR Random Glucose Calcium Phosphorus Magnesium Total Bilirubin Direct Bilirubin AST ALT Alkaline Phosphatase Total Protein Albumin Blood Type A POSITIVE Antibody Screen Negative Active Medications Generic Name Dose Route Start Last Admin Trade Name Freq PRN Reason Stop Dose Admin Heparin Sodium (Porcine) 5,000 unit 12/16/18 06:00 12/17/18 05:49 Heparin - SQ 5,000 unit TID YEHUDA Administration Lactated Ringer's 1,000 ml in 1,000 mls @ 200 mls/hr 12/16/18 16:11 12/17/18 11:49 Lactated Ringers Solution IV 200 mls/hr ASDIR YEHUDA Administration Morphine Sulfate 2 mg 12/16/18 16:34 12/16/18 16:51 Morphine Sulfate IVPUSH 2 mg Q3H PRN Administration PAIN LEVEL 6-10 Ondansetron HCl 4 mg 12/16/18 04:59 Zofran Injection IVPUSH Q6H PRN NAUSEA ASSESSMENT/PLAN: 33 year old female with a significant past medical history of rheumatoid arthritis presented to [facility] with a 1 day history of RUQ abdominal pain. #Biliary collic; possible CBD stone (passed); possible gallstone pancreatitis * Sonogram showed only cholelithiasis with no significant gall bladder abnormality. * Will trend LFTs, amylase, lipase * MRCP official read pending. Possible filling defect as well as increasing bilirubin. Will most likely be schedule for an ERCP this afternoon. * Lactated Ringer's @250cc/hr * Dr Monroe on board. ERCP Procedure explained to pt in detail by Ericka. Pt demonstrates understanding of risks and benefits of procedure. * Dr Love Surgery on board---> will need lap daniela possible open 12/20/2018 #FEN * LR@200cc/hr * Monitor Electrolytes * NPO #DVT ppx * Lovenox held in light of ERCP Dispo: * Med-Sug Visit type - Emergency Visit Emergency Visit: Yes ED Registration Date: 12/16/18 Care time: The patient presented to the Emergency Department on the above date and was hospitalized for further evaluation of their emergent condition. - New Patient This patient is new to me today: No - Critical Care Critical Care patient: No - Discharge Referral Referred to [facility] Med P.C.: No
[2018-12-17] MEDS ORDERED: CEFAZOLIN 1 GM/D5W 1 GM/50 ML BAG ONE ×2 (15:05→15:08)
[2018-12-17] MEDS ORDERED: ceFAZolin 2 GRAM PREMIX BAG IVPB ONE ×2 (15:15→15:23)
--- NOTE | 2018-12-17 15:24 | PN ---
Progress Note (short form) - Note Progress Note: TABITHA Bernal: I discusse the ERCP procedure in detail with Rosangela and informed her of the potential for such complications as perforation and hemorrhage as well as multiorgan failure related to ERCP induced pancreatitis. She has signed an informed consent. She tells me that she just had her period and cannot be . Her serum test was ordered stat and is negative. Antibiotics given. Will proceed with ERCP.
[2018-12-17] MEDS ORDERED: ONDANSETRON 4 MG/2 ML VIAL ONE (16:39)
[2018-12-17] MEDS ORDERED: ONDANSETRON 4 MG/2 ML VIAL IVPUSH PRN (16:39)
[2018-12-17] MEDS ORDERED: LACTATED RINGERS SOLUTION 1,000 ML IV SCH (16:45)
--- NOTE | 2018-12-17 16:54 | PN ---
Progress Note (short form) - Note Progress Note: GI Procedure NOte: Please see ERCP report. 3 stones found in the CBD, Two were removed after sphincterotomy was made but the 3rd could not be removed so a 7FR x 5cm length double pigtail stent was inserted. Dr. Thorne will be covering this weekend
[2018-12-17] MEDS ORDERED: LACTATED RINGERS SOLUTION 1,000 ML/1,000 ML INFUS.BAG IV SCH ×2 (17:00→23:00)
[2018-12-17 17:04] LABS: URINE APPEARANCE Clear; URINE BILIRUBIN Negative (NEGATIVE); URINE COLOR Yellow; URINE GLUCOSE (UA) Negative (NEGATIVE); URINE KETONE 3+ (NEGATIVE); URINE LEUK ESTERASE Negative (NEGATIVE); URINE NITRITE Negative (NEGATIVE); URINE PROTEIN Negative (NEGATIVE); URINE UROBILINOGEN 0.2 mg/dL (0.2-1.0)
[2018-12-17 17:11] LABS: EPI CELLS 1.4 /HPF (0-5); URINE BACTERIA 10.8 /hpf (NEGATIVE); URINE RBC 0.3 /hpf (0-4); URINE WBC 0.4 /hpf (0-5)
[2018-12-17 17:12] LABS: URINE CASTS 0.73 /hpf (0-8)
[2018-12-17] MEDS: MORPHINE SULFATE 2 MG/ML VIAL IVPUSH PRN (17:49)
[2018-12-17] MEDS ORDERED: CEFAZOLIN 2 GM/D5W 2 GM/50 ML ML IVPB SCH ×2 (18:00)
[2018-12-17] MEDS ORDERED: ceFAZolin 2 GRAM PREMIX BAG IVPB SCH (18:00)
--- NOTE | 2018-12-17 19:18 | PN ---
Teaching Attending Note Name of Resident: Epifanio Azar ATTENDING PHYSICIAN STATEMENT I saw and evaluated the patient. I reviewed the resident's note and discussed the case with the resident. I agree with the resident's findings and plan as documented. SUBJECTIVE: Patient is comfortable with no acute distress. OBJECTIVE: Vital Signs Temperature 98.0 F 12/17/18 18:00 Pulse Rate 61 12/17/18 18:00 Respiratory Rate 20 12/17/18 18:00 Blood Pressure 143/91 12/17/18 18:00 O2 Sat by Pulse Oximetry (%) 100 12/17/18 18:00 GENERAL: The patient is awake, alert, and fully oriented, in no acute distress. HEAD: Normal with no signs of trauma. EYES: PERRL, extraocular movements intact, sclera anicteric, conjunctiva clear. ENT: Ears normal, oropharynx clear without exudates, moist mucous membranes. NECK: Trachea midline, full range of motion, supple. LUNGS: Breath sounds equal, clear to auscultation bilaterally, no wheezes, no crackles, no accessory muscle use. HEART: Regular rate and rhythm, S1, S2 without murmur, rub or gallop. ABDOMEN: Soft, mid-epigastric tendermness, ND, normoactive bowel sounds, no guarding, no rebound, no masses appreciated. EXTREMITIES: 2+ pulses, warm, well-perfused, no edema. NEUROLOGICAL: Cranial nerves II through XII grossly intact. Normal speech, gait not observed. PSYCH: Normal mood, normal affect. SKIN: Warm, dry, normal turgor, no rashes or lesions noted CBCD WBC 5.7 K/mm3 (4.0-10.0) 12/17/18 06:30 RBC 3.77 M/mm3 (3.60-5.2) 12/17/18 06:30 Hgb 10.9 GM/dL (10.7-15.3) 12/17/18 06:30 Hct 32.9 % (32.4-45.2) 12/17/18 06:30 MCV 87.3 fl (80-96) 12/17/18 06:30 MCHC 33.0 g/dl (32.0-36.0) 12/17/18 06:30 RDW 14.3 % (11.6-15.6) 12/17/18 06:30 Plt Count 186 K/MM3 (134-434) 12/17/18 06:30 MPV 9.4 fl (7.5-11.1) 12/17/18 06:30 CMP Sodium 140 mmol/L (136-145) 12/17/18 06:30 Potassium 3.4 mmol/L (3.5-5.1) L 12/17/18 06:30 Chloride 109 mmol/L (98-107) H 12/17/18 06:30 Carbon Dioxide 26 mmol/L (21-32) 12/17/18 06:30 Anion Gap 6 MMOL/L (8-16) L 12/17/18 06:30 BUN 5 mg/dL (7-18) L 12/17/18 06:30 Creatinine 0.5 mg/dL (0.55-1.3) L 12/17/18 06:30 Creat Clearance w eGFR 143.91 (>60) 12/17/18 06:30 Random Glucose 80 mg/dL (74-106) 12/17/18 06:30 Calcium 8.1 mg/dL (8.5-10.1) L 12/17/18 06:30 Total Bilirubin 2.0 mg/dL (0.2-1) H 12/17/18 06:30 AST 417 U/L (15-37) H 12/17/18 06:30 ALT 755 U/L (13-61) H 12/17/18 06:30 Alkaline Phosphatase 171 U/L (45-117) H 12/17/18 06:30 Total Protein 6.3 g/dl (6.4-8.2) L 12/17/18 06:30 Albumin 3.0 g/dl (3.4-5.0) L 12/17/18 06:30 Current Medications Generic Name Dose Route Start Last Admin Trade Name Freq PRN Reason Stop Dose Admin Fentanyl 50 mcg 12/17/18 16:39 12/17/18 16:55 Sublimaze Injection - IVPUSH 12/18/18 06:00 50 mcg [id number] PRN Administration PAIN-PACU ORDER X 4 DOSES ONLY Heparin Sodium (Porcine) 5,000 unit 12/16/18 06:00 12/17/18 05:49 Heparin - SQ 5,000 unit TID YEHUDA Administration Lactated Ringer's 1,000 ml in 1,000 mls @ 250 mls/hr 12/17/18 17:00 12/17/18 17:14 Lactated Ringers Solution IV 12/17/18 23:00 250 mls/hr ASDIR YEHUDA Administration Lactated Ringer's 1,000 ml in 1,000 mls @ 200 mls/hr 12/17/18 23:00 Lactated Ringers Solution IV 12/18/18 05:00 ASDIR YEHUDA Lactated Ringer's 1,000 ml in 1,000 mls @ 175 mls/hr 12/18/18 05:00 Lactated Ringers Solution IV 12/18/18 11:00 ASDIR YEHUDA Lactated Ringer's 1,000 ml in 1,000 mls @ 150 mls/hr 12/18/18 11:00 Lactated Ringers Solution IV ASDIR YEHUDA Metronidazole 500 mg in 100 mls @ 100 mls/hr 12/17/18 21:00 Flagyl 500mg Premixed Ivpb - IVPB Q8H-IV YEHUDA Cefazolin Sodium/Dextrose 2 gm in 50 mls @ 100 mls/hr 12/17/18 21:00 Ancef 2 Gm Premixed Ivpb - IVPB Q8H-IV YEHUDA Morphine Sulfate 2 mg 12/16/18 16:34 12/17/18 17:49 Morphine Sulfate IVPUSH 2 mg Q3H PRN Administration PAIN LEVEL 6-10 Ondansetron HCl 4 mg 12/16/18 04:59 Zofran Injection IVPUSH Q6H PRN NAUSEA Home Medications Medication Instructions Recorded Calcium Carbonate [Calcium] 500 mg PO DAILY 06/12/16 Ferrous Sulfate [Feosol] 325 mg PO DAILY 06/12/16 Ursodiol [Actigall] 300 mg PO BID 10/02/16 Ibuprofen [Motrin -] 600 mg PO Q4H PRN #30 tablet 10/08/16 US of abdomen: Gallstones ASSESSMENT AND PLAN: Patient is a 33yo female with PMHx of RA , presented with RUQ abdominal pain. # s/p ERCP by , as per Dr. ferris notes: 3 stones found in the CBD, Two were removed after sphincterotomy was made but the 3rd could not be removed so a 7FR x 5cm length double pigtail stent was inserted. Dr. Lantin will see the patient in am ,covering MD for # Acute biliary colic due to Gallstones: IVF LR at 150/hr. NPO for now, flgyl/ ancef IV continue # Acute transaminitis: trend the LFts, DVT Px; heparin
[2018-12-17] MEDS ORDERED: MORPHINE SULFATE 2 MG/ML VIAL IVPUSH ONE (19:30)
[2018-12-17] MEDS: CEFAZOLIN 2 GM/D5W 2 GM/50 ML ML IVPB SCH (20:27)
[2018-12-17] MEDS: morphine SULFATE 4 MG/ML VIAL IVPUSH PRN (22:59)
[2018-12-18] MEDS: CEFAZOLIN 2 GM/D5W 2 GM/50 ML ML IVPB SCH ×3 (01:37→17:51)
[2018-12-18] MEDS ORDERED: LACTATED RINGERS SOLUTION 1,000 ML/1,000 ML INFUS.BAG IV SCH (05:00)
[2018-12-18 07:33] LABS: BASO % 0.3 % (0-2.0); EOS % 0.3 % (0-4.5); HEMATOCRIT 32.9 % (32.4-45.2); HEMOGLOBIN 10.8 GM/dL (10.7-15.3); MCH 28.8 pg (25.7-33.7); MCHC 32.9 g/dl (32.0-36.0); MEAN CELL VOLUME 87.4 fl (80-96); MEAN PLT VOLUME 9.7 fl (7.5-11.1); MONO % 8.6 % (3.8-10.2); NEUT % 73.8 % (42.8-82.8); PLATELET COUNT 177 K/MM3 (134-434); RBC 3.76 M/mm3 (3.60-5.2); RDW 13.8 % (11.6-15.6); WHITE BLOOD COUNT 9.4 K/mm3 (4.0-10.0)
--- NOTE | 2018-12-18 07:44 | PN ---
Progress Note (short form) - Note Progress Note: Attending Surgeon No c/o s/p ERCP/stone extraction and stenting; she wants to eat VSS AF abdo-benign AMlabs pending IMP:cholelithiaisi/choledocholithisais s/p ERCP and related procedures PLAN: Continue present tx,; trial of clear liquids pending labs; OR Thursday for lap daniela. Nicholas Love MD FACS
[2018-12-18] MEDS: LACTATED RINGERS SOLUTION 1,000 ML/1,000 ML INFUS.BAG IV SCH ×3 (07:58→20:37)
[2018-12-18 09:09] LABS: ALBUMIN 2.9 g/dl (3.4-5.0); ALK PHOS 153 U/L (45-117); AMYLASE 189 U/L (25-115); ANION GAP 7 MMOL/L (8-16); BILIRUBIN,DIRECT 0.4 mg/dL (0.0-0.2); BILIRUBIN,TOTAL 0.8 mg/dL (0.2-1); BLOOD UREA NITROGEN 5 mg/dL (7-18); CHLORIDE 106 mmol/L (98-107); CO2 25 mmol/L (21-32); CREATININE 0.5 mg/dL (0.55-1.3); GLUCOSE,RANDOM 82 mg/dL (74-106); LIPASE 925 U/L (73-393); MAGNESIUM 2.1 mg/dL (1.8-2.4); PHOSPHOROUS 3.2 mg/dL (2.5-4.9); POTASSIUM 3.6 mmol/L (3.5-5.1); SGOT/AST 149 U/L (15-37); SGPT/ALT 474 U/L (13-61); SODIUM 138 mmol/L (136-145); TOT PROT 6.2 g/dl (6.4-8.2)
[2018-12-18 10:09] LABS: HBSAG SCREEN Negative (Negative); HEP A AB, IGM Negative (Negative); HEP B CORE AB, TOT Negative (Negative)
--- NOTE | 2018-12-18 12:12 | PN ---
GI Progress Note Subjective: coverage for Dr Schwab S/P ERC with removal of CBD stone, asymptomatic, hungry - Objective Vital Signs: Vital Signs Temperature 98.5 F 12/18/18 06:16 Pulse Rate 69 12/18/18 06:16 Respiratory Rate 18 12/18/18 06:16 Blood Pressure 133/78 12/18/18 06:16 O2 Sat by Pulse Oximetry (%) 100 12/17/18 21:00 Constitutional: Well Nourished Eyes: Yes: Conjunctiva Clear HENT: Yes: Atraumatic Neck: Yes: Supple Cardiovascular: Yes: Regular Rate and Rhythm Respiratory: Yes: CTA Bilaterally Gastrointestinal Inspection: No: Distention ...Auscultate: Yes: Normoactive Bowel Sounds ...Palpate: Yes: Soft. No: Firm/Rigid, Guarding, Pulsatile Mass, Splenomegaly, Tenderness, Tenderness, Epigastium Labs: CBC, BMP 12/18/18 06:30 12/18/18 06:30 INR, PTT INR 1.04 (0.83-1.09) 12/16/18 05:56 Problem List - Problems (1) Choledocholithiasis Assessment/Plan: s/p erc r> ADVANCE DIET TOLERATED for cholecystectomy Thursday Code(s): K80.50 - CALCULUS OF BILE DUCT W/O CHOLANGITIS OR CHOLECYST W/O OBST
--- NOTE | 2018-12-18 13:00 | PN ---
Progress Note (short form) - Note Progress Note: Patient is feeling better with no acute distress. Pain improved post ERCP. Vital Signs Temperature 98.4 F 12/18/18 10:00 Pulse Rate 64 12/18/18 10:00 Respiratory Rate 18 12/18/18 10:00 Blood Pressure 118/63 12/18/18 10:00 O2 Sat by Pulse Oximetry (%) 100 12/17/18 21:00 Initial Vital Signs Temp Pulse Resp BP Pulse Ox 98.0 F 74 18 114/69 100 12/15/18 23:18 12/15/18 23:18 12/15/18 23:18 12/15/18 23:18 12/15/18 23:18 GENERAL: The patient is awake, alert, and fully oriented, in no acute distress. HEAD: Normal with no signs of trauma. EYES: PERRL, extraocular movements intact, sclera anicteric, conjunctiva clear. ENT: Ears normal, oropharynx clear without exudates, moist mucous membranes. NECK: Trachea midline, full range of motion, supple. LUNGS: Breath sounds equal, clear to auscultation bilaterally, no wheezes, no crackles, no accessory muscle use. HEART: Regular rate and rhythm, S1, S2 without murmur, rub or gallop. ABDOMEN: Soft, mild abdominal RUQ tendermness, ND, normoactive bowel sounds, no guarding, no rebound, no masses appreciated. EXTREMITIES: 2+ pulses, warm, well-perfused, no edema. NEUROLOGICAL: Cranial nerves II through XII grossly intact. Normal speech, gait not observed. PSYCH: Normal mood, normal affect. SKIN: Warm, dry, normal turgor, no rashes or lesions noted CBCD WBC 9.4 K/mm3 (4.0-10.0) 12/18/18 06:30 RBC 3.76 M/mm3 (3.60-5.2) 12/18/18 06:30 Hgb 10.8 GM/dL (10.7-15.3) 12/18/18 06:30 Hct 32.9 % (32.4-45.2) 12/18/18 06:30 MCV 87.4 fl (80-96) 12/18/18 06:30 MCHC 32.9 g/dl (32.0-36.0) 12/18/18 06:30 RDW 13.8 % (11.6-15.6) 12/18/18 06:30 Plt Count 177 K/MM3 (134-434) 12/18/18 06:30 MPV 9.7 fl (7.5-11.1) 12/18/18 06:30 CMP Sodium 138 mmol/L (136-145) 12/18/18 06:30 Potassium 3.6 mmol/L (3.5-5.1) 12/18/18 06:30 Chloride 106 mmol/L (98-107) 12/18/18 06:30 Carbon Dioxide 25 mmol/L (21-32) 12/18/18 06:30 Anion Gap 7 MMOL/L (8-16) L 12/18/18 06:30 BUN 5 mg/dL (7-18) L 12/18/18 06:30 Creatinine 0.5 mg/dL (0.55-1.3) L 12/18/18 06:30 Creat Clearance w eGFR 143.91 (>60) 12/18/18 06:30 Random Glucose 82 mg/dL (74-106) 12/18/18 06:30 Calcium 8.0 mg/dL (8.5-10.1) L 12/18/18 06:30 Total Bilirubin 0.8 mg/dL (0.2-1) 12/18/18 06:30 AST 149 U/L (15-37) H 12/18/18 06:30 ALT 474 U/L (13-61) H 12/18/18 06:30 Alkaline Phosphatase 153 U/L (45-117) H 12/18/18 06:30 Total Protein 6.2 g/dl (6.4-8.2) L 12/18/18 06:30 Albumin 2.9 g/dl (3.4-5.0) L 12/18/18 06:30 Current Medications Generic Name Dose Route Start Last Admin Trade Name Freq PRN Reason Stop Dose Admin Heparin Sodium (Porcine) 5,000 unit 12/16/18 06:00 12/17/18 05:49 Heparin - SQ 5,000 unit TID YEHUDA Administration Lactated Ringer's 1,000 ml in 1,000 mls @ 150 mls/hr 12/18/18 11:00 12/18/18 11:21 Lactated Ringers Solution IV 150 mls/hr ASDIR YEHUDA Administration Metronidazole 500 mg in 100 mls @ 100 mls/hr 12/17/18 21:00 12/18/18 10:02 Flagyl 500mg Premixed Ivpb - IVPB 100 mls/hr Q8H-IV YEHUDA Administration Cefazolin Sodium/Dextrose 2 gm in 50 mls @ 100 mls/hr 12/17/18 21:00 10:02 Ancef 2 Gm Premixed Ivpb - IVPB 100 mls/hr Q8H-IV YEHUDA Administration Morphine Sulfate 4 mg 12/17/18 19:31 12/17/18 22:59 Morphine Sulfate IVPUSH 4 mg Q3H PRN Administration PAIN LEVEL 6-10 Ondansetron HCl 4 mg 12/16/18 04:59 Zofran Injection IVPUSH Q6H PRN NAUSEA Home Medications Medication Instructions Recorded Calcium Carbonate [Calcium] 500 mg PO DAILY 06/12/16 Ferrous Sulfate [Feosol] 325 mg PO DAILY 06/12/16 Ursodiol [Actigall] 300 mg PO BID 10/02/16 Ibuprofen [Motrin -] 600 mg PO Q4H PRN #30 tablet 10/08/16 US of abdomen: Gallstones ASSESSMENT AND PLAN: Patient is a 33yo female with PMHx of RA , presented with RUQ abdominal pain. # Choledecholithiasis s/p ERCP by , as per Dr. ferris notes: 3 stones found in the CBD, Two were removed after sphincterotomy was made but the 3rd could not be removed so a 7FR x 5cm length double pigtail stent was inserted. patient needs to follow up with him in 3 months period for stent removal and repeat of ERCP for the 3rd stone, meanwhile patient needs to continue on Actigall 300mg po bid untill she sees in his office in [address] Thorne will see the patient in am ,covering MD for # s/p biliary colic due to Gallstones: on IVF LR at 150/hr. continue with flgyl/ ancef IV , diet. # Acute transaminitis: trend the LFts, DVT Px; heparin Visit type - Emergency Visit Emergency Visit: Yes ED Registration Date: 12/16/18 Care time: The patient presented to the Emergency Department on the above date and was hospitalized for further evaluation of their emergent condition. - New Patient This patient is new to me today: No - Critical Care Critical Care patient: No - Discharge Referral Referred to [facility] No
[2018-12-18] MEDS: HEPARIN NA (PORCINE) 5,000 UNITS/ML 1ML VIAL SQ SCH ×2 (15:39→21:01)
[2018-12-18] MEDS: morphine SULFATE 4 MG/ML VIAL IVPUSH PRN (20:52)
[2018-12-19] MEDS: CEFAZOLIN 2 GM/D5W 2 GM/50 ML ML IVPB SCH ×3 (01:10→17:51)
[2018-12-19] MEDS: LACTATED RINGERS SOLUTION 1,000 ML/1,000 ML INFUS.BAG IV SCH ×4 (04:55→23:15)
[2018-12-19] MEDS: HEPARIN NA (PORCINE) 5,000 UNITS/ML 1ML VIAL SQ SCH ×3 (05:31→21:51)
--- NOTE | 2018-12-19 07:38 | PN ---
Progress Note, Physician Chief Complaint: s/p ERCP under general anesthesia History of Present Illness: post op day one - Current Medication List Current Medications: Active Medications Heparin Sodium (Porcine) (Heparin -) 5,000 unit SQ TID YEHUDA Last Admin: 12/19/18 05:31 Dose: 5,000 unit Lactated Ringer's (Lactated Ringers Solution) 1,000 ml in 1,000 mls @ 150 mls/ hr IV ASDIR YEHUDA Last Admin: 12/19/18 04:55 Dose: 150 mls/hr Metronidazole (Flagyl 500mg Premixed Ivpb -) 500 mg in 100 mls @ 100 mls/hr IVPB Q8H-IV YEHUDA Last Admin: 12/19/18 02:45 Dose: 100 mls/hr Cefazolin Sodium/Dextrose (Ancef 2 Gm Premixed Ivpb -) 2 gm in 50 mls @ 100 mls /hr IVPB Q8H-IV YEHUDA Last Admin: 12/19/18 01:10 Dose: 100 mls/hr Morphine Sulfate (Morphine Sulfate) 4 mg IVPUSH Q3H PRN PRN Reason: PAIN LEVEL 6-10 Last Admin: 12/18/18 20:52 Dose: 4 mg Ondansetron HCl (Zofran Injection) 4 mg IVPUSH Q6H PRN PRN Reason: NAUSEA - Objective Vital Signs: Vital Signs Temperature 98.2 F 12/19/18 06:51 Pulse Rate 58 L 12/19/18 06:51 Respiratory Rate 20 12/19/18 06:51 Blood Pressure 118/77 12/19/18 06:51 O2 Sat by Pulse Oximetry (%) 99 12/18/18 21:00 Constitutional: Yes: Well Nourished Cardiovascular: Yes: WNL Respiratory: Yes: WNL Gastrointestinal: Yes: WNL Labs: CBC, BMP 12/18/18 06:30 12/18/18 06:30 INR, PTT INR 1.04 (0.83-1.09) 12/16/18 05:56 Assessment/Plan no adverse effect of anesthetic. dept of anesthesiology will sign off care at this time
--- NOTE | 2018-12-19 08:17 | PN ---
Physical Exam: SUBJECTIVE: Patient seen and examined at bedside. No acute events overnight. Denies any abdominal pain. OBJECTIVE: Vital Signs Period Temp Pulse Resp BP Sys/Mcgregor Pulse Ox Last 24 Hr 98.2 F-98.6 F 58-70 18-20 107-118/63-77 99-100 GENERAL: NAD HEAD: Atraumatic/Normocephalic. EYES: EOMI Sclera Clear No scleral icterus appreciated ENT: MMM NECK: Trachea midline, full range of motion, supple. LUNGS: CTAB HEART: RRR No MRG S1S2 ABDOMEN: Nondistended and nontender to deep palpation. Lara's sign negative EXTREMITIES: No CCE NEUROLOGICAL: Cranial nerves II through XII grossly intact. . PSYCH: Normal mood, normal affect. SKIN: No jaundice appreciated Laboratory Results - last 24 hr 12/17/18 12/18/18 12/18/18 06:30 06:30 06:30 WBC 9.4 RBC 3.76 Hgb 10.8 Hct 32.9 MCV 87.4 MCH 28.8 MCHC 32.9 RDW 13.8 Plt Count 177 MPV 9.7 Absolute Neuts (auto) 6.9 Neutrophils % 73.8 Lymphocytes % 17.0 D Monocytes % 8.6 Eosinophils % 0.3 Basophils % 0.3 Nucleated RBC % 0 Sodium 138 Potassium 3.6 Chloride 106 Carbon Dioxide 25 Anion Gap 7 L BUN 5 L Creatinine 0.5 L Creat Clearance w eGFR 143.91 Random Glucose 82 Calcium 8.0 L Phosphorus 3.2 Magnesium 2.1 Total Bilirubin 0.8 Direct Bilirubin 0.4 H AST 149 H ALT 474 H Alkaline Phosphatase 153 H C-Reactive Protein 0.4 H Total Protein 6.2 L Albumin 2.9 L Total Amylase 189 H Lipase 925 H Hep A IgM Ab Confirm Negative Hepatitis A Ab Total Positive H Hep Bs Antigen Negative Hep Bs Antibody Non reactive Hep B Core Total Ab Negative Active Medications Generic Name Dose Route Start Last Admin Trade Name Freq PRN Reason Stop Dose Admin Heparin Sodium (Porcine) 5,000 unit 12/16/18 06:00 12/19/18 05:31 Heparin - SQ 5,000 unit TID YEHUDA Administration Lactated Ringer's 1,000 ml in 1,000 mls @ 150 mls/hr 12/18/18 11:00 12/19/18 04:55 Lactated Ringers Solution IV 150 mls/hr ASDIR YEHUDA Administration Metronidazole 500 mg in 100 mls @ 100 mls/hr 12/17/18 21:00 12/19/18 02:45 Flagyl 500mg Premixed Ivpb - IVPB 100 mls/hr Q8H-IV YEHUDA Administration Cefazolin Sodium/Dextrose 2 gm in 50 mls @ 100 mls/hr 12/17/18 21:00 01:10 Ancef 2 Gm Premixed Ivpb - IVPB 100 mls/hr Q8H-IV YEHUDA Administration Morphine Sulfate 4 mg 12/17/18 19:31 12/18/18 20:52 Morphine Sulfate IVPUSH 4 mg Q3H PRN Administration PAIN LEVEL 6-10 Ondansetron HCl 4 mg 12/16/18 04:59 Zofran Injection IVPUSH Q6H PRN NAUSEA ASSESSMENT/PLAN: 33 year old female with a significant past medical history of rheumatoid arthritis presented to [facility] with a 1 day history of RUQ abdominal pain. #Biliary collic; possible CBD stone (passed); possible gallstone pancreatitis * Sonogram showed only cholelithiasis with no significant gall bladder abnormality. * MRCP revealed cholelithiasis as well as possible small stones within cystic duct. S/P ERCP w/ Dr Schwab * Lactated Ringer's @150cc/hr * Dr Monroe on board. * Dr Love Surgery on board---> scheduled for lap daniela possible open tomorrow 12/20/2018 #FEN * LR@150cc/hr * Monitor Electrolytes * NPO after midnight #DVT ppx * Heparin SQTID Dispo: * Med-Surg Visit type - Emergency Visit Emergency Visit: Yes ED Registration Date: 12/16/18 Care time: The patient presented to the Emergency Department on the above date and was hospitalized for further evaluation of their emergent condition. - New Patient This patient is new to me today: No - Critical Care Critical Care patient: No - Discharge Referral Referred to [facility] No
[2018-12-19 08:36] LABS: BASO % 0.6 % (0-2.0); EOS % 3.9 % (0-4.5); HEMOGLOBIN 10.7 GM/dL (10.7-15.3); LYMPH % 30.2 % (8-40); MCH 28.5 pg (25.7-33.7); MCHC 32.6 g/dl (32.0-36.0); MEAN CELL VOLUME 87.5 fl (80-96); MEAN PLT VOLUME 9.1 fl (7.5-11.1); MONO % 10.1 % (3.8-10.2); NEUT % 55.2 % (42.8-82.8); PLATELET COUNT 165 K/MM3 (134-434); RBC 3.77 M/mm3 (3.60-5.2); RDW 14.3 % (11.6-15.6); WHITE BLOOD COUNT 5.3 K/mm3 (4.0-10.0)
[2018-12-19 09:09] LABS: ALBUMIN 2.9 g/dl (3.4-5.0); ALK PHOS 138 U/L (45-117); ANION GAP 7 MMOL/L (8-16); BILIRUBIN,TOTAL 0.6 mg/dL (0.2-1); BLOOD UREA NITROGEN 5 mg/dL (7-18); CALCIUM 7.9 mg/dL (8.5-10.1); CHLORIDE 107 mmol/L (98-107); CO2 23 mmol/L (21-32); CREATININE 0.4 mg/dL (0.55-1.3); GLUCOSE,RANDOM 82 mg/dL (74-106); MAGNESIUM 2.2 mg/dL (1.8-2.4); PHOSPHOROUS 2.4 mg/dL (2.5-4.9); POTASSIUM 3.5 mmol/L (3.5-5.1); SGOT/AST 71 U/L (15-37); SGPT/ALT 304 U/L (13-61); SODIUM 138 mmol/L (136-145); TOT PROT 6.3 g/dl (6.4-8.2)
--- NOTE | 2018-12-19 14:57 | PN ---
Teaching Attending Note Name of Resident: Epifanio Azar ATTENDING PHYSICIAN STATEMENT I saw and evaluated the patient. I reviewed the resident's note and discussed the case with the resident. I agree with the resident's findings and plan as documented. SUBJECTIVE: Patient is feeling better with no acute distress. OBJECTIVE: Vital Signs Temperature 98.2 F 12/19/18 06:51 Pulse Rate 58 L 12/19/18 06:51 Respiratory Rate 20 12/19/18 06:51 Blood Pressure 118/77 12/19/18 06:51 O2 Sat by Pulse Oximetry (%) 98 12/19/18 09:00 GENERAL: The patient is awake, alert, and fully oriented, in no acute distress. HEAD: Normal with no signs of trauma. EYES: PERRL, extraocular movements intact, sclera anicteric, conjunctiva clear. ENT: Ears normal, oropharynx clear without exudates, moist mucous membranes. NECK: Trachea midline, full range of motion, supple. LUNGS: Breath sounds equal, clear to auscultation bilaterally, no wheezes, no crackles, no accessory muscle use. HEART: Regular rate and rhythm, S1, S2 without murmur, rub or gallop. ABDOMEN: Soft, mid-epigastric tendermness, ND, normoactive bowel sounds, no guarding, no rebound, no masses appreciated. EXTREMITIES: 2+ pulses, warm, well-perfused, no edema. NEUROLOGICAL: Cranial nerves II through XII grossly intact. Normal speech, gait not observed. PSYCH: Normal mood, normal affect. SKIN: Warm, dry, normal turgor, no rashes or lesions notedCBCD WBC 5.3 K/mm3 (4.0-10.0) 12/19/18 08:00 RBC 3.77 M/mm3 (3.60-5.2) 12/19/18 08:00 Hgb 10.7 GM/dL (10.7-15.3) 12/19/18 08:00 Hct 33.0 % (32.4-45.2) 12/19/18 08:00 MCV 87.5 fl (80-96) 12/19/18 08:00 MCHC 32.6 g/dl (32.0-36.0) 12/19/18 08:00 RDW 14.3 % (11.6-15.6) 12/19/18 08:00 Plt Count 165 K/MM3 (134-434) 12/19/18 08:00 MPV 9.1 fl (7.5-11.1) 12/19/18 08:00 CMP Sodium 138 mmol/L (136-145) 12/19/18 08:00 Potassium 3.5 mmol/L (3.5-5.1) 12/19/18 08:00 Chloride 107 mmol/L (98-107) 12/19/18 08:00 Carbon Dioxide 23 mmol/L (21-32) 12/19/18 08:00 Anion Gap 7 MMOL/L (8-16) L 12/19/18 08:00 BUN 5 mg/dL (7-18) L 12/19/18 08:00 Creatinine 0.4 mg/dL (0.55-1.3) L 12/19/18 08:00 Creat Clearance w eGFR 186.17 (>60) 12/19/18 08:00 Random Glucose 82 mg/dL (74-106) 12/19/18 08:00 Calcium 7.9 mg/dL (8.5-10.1) L 12/19/18 08:00 Total Bilirubin 0.6 mg/dL (0.2-1) 12/19/18 08:00 AST 71 U/L (15-37) H 12/19/18 08:00 ALT 304 U/L (13-61) H 12/19/18 08:00 Alkaline Phosphatase 138 U/L (45-117) H 12/19/18 08:00 Total Protein 6.3 g/dl (6.4-8.2) L 12/19/18 08:00 Albumin 2.9 g/dl (3.4-5.0) L 12/19/18 08:00 Current Medications Generic Name Dose Route Start Last Admin Trade Name Freq PRN Reason Stop Dose Admin Heparin Sodium (Porcine) 5,000 unit 12/16/18 06:00 12/19/18 14:09 Heparin - SQ 5,000 unit TID YEHUDA Administration Lactated Ringer's 1,000 ml in 1,000 mls @ 150 mls/hr 12/18/18 11:00 12/19/18 14:08 Lactated Ringers Solution IV 150 mls/hr ASDIR YEHUDA Administration Metronidazole 500 mg in 100 mls @ 100 mls/hr 12/17/18 21:00 12/19/18 10:27 Flagyl 500mg Premixed Ivpb - IVPB 100 mls/hr Q8H-IV YEHUDA Administration Cefazolin Sodium/Dextrose 2 gm in 50 mls @ 100 mls/hr 12/17/18 21:00 09:34 Ancef 2 Gm Premixed Ivpb - IVPB 100 mls/hr Q8H-IV YEHUDA Administration Morphine Sulfate 4 mg 12/17/18 19:31 12/18/18 20:52 Morphine Sulfate IVPUSH 4 mg Q3H PRN Administration PAIN LEVEL 6-10 Ondansetron HCl 4 mg 12/16/18 04:59 Zofran Injection IVPUSH Q6H PRN NAUSEA Home Medications Medication Instructions Recorded Calcium Carbonate [Calcium] 500 mg PO DAILY 06/12/16 Ferrous Sulfate [Feosol] 325 mg PO DAILY 06/12/16 Ursodiol [Actigall] 300 mg PO BID 10/02/16 Ibuprofen [Motrin -] 600 mg PO Q4H PRN #30 tablet 10/08/16 US of abdomen: Gallstones ASSESSMENT AND PLAN: Patient is a 33yo female with PMHx of RA , presented with RUQ abdominal pain. # Acute Choledecholithiasis s/p ERCP by , as per Dr. ferris notes: 3 stones found in the CBD, Two were removed after sphincterotomy was made but the 3rd could not be removed so a 7FR x 5cm length double pigtail stent was inserted. patient needs to follow up with him in 3 months period for stent removal and repeat of ERCP for the 3rd stone, meanwhile patient needs to continue on Actigall 300mg po bid until she sees in his office in [address] Thorne is covering for on IVF LR at 150/hr. continue with flgyl/ancef IV , diet. # Acute transaminitis: trending down, monitor the LFts, DVT Px; heparin for cholecystectomy by dr. anton in am
--- NOTE | 2018-12-19 15:37 | PN ---
Progress Note (short form) - Note Progress Note: s/p ERC with removal of CBD stone, asymptomatic for cholecystectomy Problem List - Problems (1) Choledocholithiasis Code(s): K80.50 - CALCULUS OF BILE DUCT W/O CHOLANGITIS OR CHOLECYST W/O OBST
[2018-12-20] MEDS: CEFAZOLIN 2 GM/D5W 2 GM/50 ML ML IVPB SCH ×2 (02:35→10:01)
[2018-12-20] MEDS: HEPARIN NA (PORCINE) 5,000 UNITS/ML 1ML VIAL SQ SCH (05:48)
[2018-12-20] MEDS ORDERED: BUPIVACAINE HCL/PF 0.5% (5MG/ML) 10 ML VIAL ONE (07:19)
[2018-12-20 07:30] LABS: HEMATOCRIT 33.2 % (32.4-45.2); HEMOGLOBIN 10.9 GM/dL (10.7-15.3); MCH 28.8 pg (25.7-33.7); MCHC 32.8 g/dl (32.0-36.0); MEAN CELL VOLUME 87.8 fl (80-96); MEAN PLT VOLUME 9.5 fl (7.5-11.1); PLATELET COUNT 168 K/MM3 (134-434); RBC 3.78 M/mm3 (3.60-5.2); RDW 14.4 % (11.6-15.6)
[2018-12-20 08:02] LABS: ANION GAP 8 MMOL/L (8-16); BLOOD UREA NITROGEN 5 mg/dL (7-18); CALCIUM 8.2 mg/dL (8.5-10.1); CHLORIDE 109 mmol/L (98-107); CO2 24 mmol/L (21-32); CREATININE 0.5 mg/dL (0.55-1.3); GLUCOSE,RANDOM 74 mg/dL (74-106); MAGNESIUM 1.9 mg/dL (1.8-2.4); PHOSPHOROUS 3.1 mg/dL (2.5-4.9); POTASSIUM 3.4 mmol/L (3.5-5.1); SODIUM 141 mmol/L (136-145)
[2018-12-20] MEDS ORDERED: MIDAZOLAM HCL 2 MG/2 ML SINGLE DOSE VIAL ONE ×2 (08:02)
[2018-12-20] MEDS ORDERED: PROPOFOL 20 ML ONE (08:10)
[2018-12-20] MEDS ORDERED: ROCURONIUM BROMIDE 50 MG/5 ML VIAL ONE (08:10)
[2018-12-20] MEDS ORDERED: BUPIVACAINE HCL/PF (5 MG/ML) 30 ML VIAL IJ ONE (09:45)
[2018-12-20] MEDS ORDERED: NEOSTIGMINE METHYLSULFATE 0.5 MG/ML - 10 ML MDV ONE (10:06)
[2018-12-20] MEDS ORDERED: ONDANSETRON 4 MG/2 ML VIAL IVPUSH PRN ×3 (10:23→10:43)
[2018-12-20] MEDS ORDERED: LACTATED RINGERS SOLUTION 1,000 ML IV SCH (10:30)
[2018-12-20] MEDS ORDERED: oxyCODONE HCL 5 MG TABLET PO PRN ×3 (10:39→10:43)
--- NOTE | 2018-12-20 10:47 | SURG ---
Surgery Fish Checker Note Fish Checker: Nancy Thakkar PA-C (Suzy) Date of Service: 12/20/18 Diagnosis: Choledocolithiasis Procedure: Laparoscopic cholecystitis I was present for the entirety of the operative procedure. For further detail, please refer to operative report. Visit type - Case Type Case Type: Scheduled - Emergency Emergency Visit: No - New patient This patient is new to me today: Yes Date on this admission: 12/20/18 - Critical Care Critical Care patient: No
--- NOTE | 2018-12-20 10:47 | OP ---
Operative Note - Note: Operative Date: 12/20/18 Pre-Operative Diagnosis: Choledocolithiasis Operation: Laparoscopic cholecystitis Findings: as dictated Post-Operative Diagnosis: Same as Pre-op Surgeon: Nicholas Love Sole Stitcher Hand: Nancy Thakkar Anesthesiologist/CLINICAL TRIAL MANAGER: Donna Cleary MD Anesthesia: General, Local Specimens Removed: Gallbladder Estimated Blood Loss (mls): 25 (ml) Drains & Tubes with Location: DONNA left in gallbladder bed Fluid Volume Replaced (mls): 1,500 (ml LR) Operative Report Dictated: Yes
[2018-12-20] MEDS: LACTATED RINGERS SOLUTION 1,000 ML IV SCH (12:24)
[2018-12-20] MEDS: oxyCODONE HCL 5 MG TABLET PO PRN ×2 (13:23→17:46)
--- NOTE | 2018-12-20 17:27 | PN ---
Physical Exam: SUBJECTIVE: Patient seen and examined at bedside. S/P cholecystectomy. Endorses generalized abdominal pain. OBJECTIVE: Vital Signs Period Temp Pulse Resp BP Sys/Mcgregor Pulse Ox Last 24 Hr 97.3 F-98.8 F 61-80 13-20 105-138/62-96 98-100 GENERAL: No acute distress HEAD: Atraumatic/Normocephalic. EYES: EOMI Sclera Clear No scleral icterus appreciated ENT: MMM NECK: Trachea midline, full range of motion, supple. LUNGS: CTAB HEART: RRR No MRG S1S2 ABDOMEN: Band aides at sites of trochar insertion. Nondistended, slightly tender to palpation EXTREMITIES: No CCE NEUROLOGICAL: Cranial nerves II through XII grossly intact. . PSYCH: Normal mood, normal affect. SKIN: No jaundice appreciated Laboratory Results - last 24 hr 12/20/18 12/20/18 06:30 06:30 WBC 5.0 RBC 3.78 Hgb 10.9 Hct 33.2 MCV 87.8 MCH 28.8 MCHC 32.8 RDW 14.4 Plt Count 168 MPV 9.5 Sodium 141 Potassium 3.4 L Chloride 109 H Carbon Dioxide 24 Anion Gap 8 BUN 5 L Creatinine 0.5 L Creat Clearance w eGFR 143.91 Random Glucose 74 Calcium 8.2 L Phosphorus 3.1 Magnesium 1.9 Active Medications Generic Name Dose Route Start Last Admin Trade Name Freq PRN Reason Stop Dose Admin Heparin Sodium (Porcine) 5,000 unit 12/21/18 14:00 Heparin - SQ TID [facility] Lactated Ringer's 1,000 mls @ 125 mls/hr 12/20/18 11:00 12/20/18 12:24 Lactated Ringers Solution IV Not Given ASDIR [facility] Ondansetron HCl 4 mg 12/20/18 10:43 Zofran Injection IVPUSH Q6H PRN NAUSEA Ondansetron HCl 4 mg 12/20/18 10:43 Zofran Injection IVPUSH 12/20/18 20:00 Q6H PRN NAUSEA AND/OR VOMITING Oxycodone HCl 5 mg 12/20/18 10:43 Roxicodone - PO Q4H PRN PAIN LEVEL 1-5 Oxycodone HCl 10 mg 12/20/18 10:43 12/20/18 13:23 Roxicodone - PO 10 mg Q4H PRN Administration PAIN LEVEL 7 - 10 ASSESSMENT/PLAN: 33 year old female with a significant past medical history of rheumatoid arthritis presented to [facility] with a 1 day history of RUQ abdominal pain. #Biliary collic; possible CBD stone (passed); possible gallstone pancreatitis * Sonogram showed only cholelithiasis with no significant gall bladder abnormality. * MRCP revealed cholelithiasis as well as possible small stones within cystic duct. S/P ERCP w/ Dr Schwab * Lactated Ringer's @125cc/hr * Dr Monroe on board. * Dr Love Surgery on board---> POD #0 LAP SARA #FEN * LR@125cc/hr * Monitor Electrolytes * Clear liquid diet #DVT ppx * Heparin SQTID Dispo: * Med-Surg Visit type - Emergency Visit Emergency Visit: Yes ED Registration Date: 12/16/18 Care time: The patient presented to the Emergency Department on the above date and was hospitalized for further evaluation of their emergent condition. - New Patient This patient is new to me today: No - Critical Care Critical Care patient: No - Discharge Referral Referred to [facility] No
--- NOTE | 2018-12-20 21:06 | PN ---
Teaching Attending Note Name of Resident: Epifanio Azar ATTENDING PHYSICIAN STATEMENT I saw and evaluated the patient. I reviewed the resident's note and discussed the case with the resident. I agree with the resident's findings and plan as documented. SUBJECTIVE: Going to OR this morning. OBJECTIVE: Vital Signs Temperature 98.3 F 12/20/18 20:25 Pulse Rate 68 12/20/18 20:25 Respiratory Rate 16 12/20/18 20:25 Blood Pressure 116/69 12/20/18 20:25 O2 Sat by Pulse Oximetry (%) 100 12/20/18 20:10 GENERAL: The patient is awake, alert, and fully oriented, in no acute distress. HEAD: Normal with no signs of trauma. EYES: PERRL, extraocular movements intact, sclera anicteric, conjunctiva clear. ENT: Ears normal, oropharynx clear without exudates, moist mucous membranes. NECK: Trachea midline, full range of motion, supple. LUNGS: Breath sounds equal, clear to auscultation bilaterally, no wheezes, no crackles, no accessory muscle use. HEART: Regular rate and rhythm, S1, S2 without murmur, rub or gallop. ABDOMEN: Soft, mild tendermness, ND, normoactive bowel sounds, no guarding, no rebound, no masses appreciated. EXTREMITIES: 2+ pulses, warm, well-perfused, no edema. NEUROLOGICAL: Cranial nerves II through XII grossly intact. Normal speech, gait not observed. PSYCH: Normal mood, normal affect. SKIN: Warm, dry, normal turgor, no rashes or lesions noted CBCD WBC 5.0 K/mm3 (4.0-10.0) 12/20/18 06:30 RBC 3.78 M/mm3 (3.60-5.2) 12/20/18 06:30 Hgb 10.9 GM/dL (10.7-15.3) 12/20/18 06:30 Hct 33.2 % (32.4-45.2) 12/20/18 06:30 MCV 87.8 fl (80-96) 12/20/18 06:30 MCHC 32.8 g/dl (32.0-36.0) 12/20/18 06:30 RDW 14.4 % (11.6-15.6) 12/20/18 06:30 Plt Count 168 K/MM3 (134-434) 12/20/18 06:30 MPV 9.5 fl (7.5-11.1) 12/20/18 06:30 CMP Sodium 141 mmol/L (136-145) 12/20/18 06:30 Potassium 3.4 mmol/L (3.5-5.1) L 12/20/18 06:30 Chloride 109 mmol/L (98-107) H 12/20/18 06:30 Carbon Dioxide 24 mmol/L (21-32) 12/20/18 06:30 Anion Gap 8 MMOL/L (8-16) 12/20/18 06:30 BUN 5 mg/dL (7-18) L 12/20/18 06:30 Creatinine 0.5 mg/dL (0.55-1.3) L 12/20/18 06:30 Creat Clearance w eGFR 143.91 (>60) 12/20/18 06:30 Random Glucose 74 mg/dL (74-106) 12/20/18 06:30 Calcium 8.2 mg/dL (8.5-10.1) L 12/20/18 06:30 Total Bilirubin 0.6 mg/dL (0.2-1) 12/19/18 08:00 AST 71 U/L (15-37) H 12/19/18 08:00 ALT 304 U/L (13-61) H 12/19/18 08:00 Alkaline Phosphatase 138 U/L (45-117) H 12/19/18 08:00 Total Protein 6.3 g/dl (6.4-8.2) L 12/19/18 08:00 Albumin 2.9 g/dl (3.4-5.0) L 12/19/18 08:00 Current Medications Generic Name Dose Route Start Last Admin Trade Name Freq PRN Reason Stop Dose Admin Heparin Sodium (Porcine) 5,000 unit 12/21/18 14:00 Heparin - SQ TID [facility] Lactated Ringer's 1,000 mls @ 125 mls/hr 12/20/18 11:00 12/20/18 12:24 Lactated Ringers Solution IV Not Given ASDIR YEHUDA Ondansetron HCl 4 mg 12/20/18 10:43 Zofran Injection IVPUSH Q6H PRN NAUSEA Oxycodone HCl 5 mg 12/20/18 10:43 Roxicodone - PO Q4H PRN PAIN LEVEL 1-5 Oxycodone HCl 10 mg 12/20/18 10:43 12/20/18 17:46 Roxicodone - PO 10 mg Q4H PRN Administration PAIN LEVEL 7 - 10 Home Medications Medication Instructions Recorded Calcium Carbonate [Calcium] 500 mg PO DAILY 06/12/16 Ferrous Sulfate [Feosol] 325 mg PO DAILY 06/12/16 Ursodiol [Actigall] 300 mg PO BID 10/02/16 Ibuprofen [Motrin -] 600 mg PO Q4H PRN #30 tablet 10/08/16 US of abdomen: Gallstones ASSESSMENT AND PLAN: Patient is a 33yo female with PMHx of RA , presented with RUQ abdominal pain. # Acute Choledecholithiasis going for cholecystectomy today by , s/p ERCP by , as per Dr. ferris notes: 3 stones found in the CBD, Two were removed after sphincterotomy was made but the 3rd could not be removed so a 7FR x 5cm length double pigtail stent was inserted. patient needs to follow up with him in 3 months period for stent removal and repeat of ERCP for the 3rd stone, meanwhile patient needs to continue on Actigall 300mg po bid untill she sees in his office in [address] Thorne will see the patient in am ,covering MD for # s/p biliary colic due to Gallstones: npo, continue IVF LR at 125ml/hr. continue with flgyl/ancef IV, npo for surgery. # Acute transaminitis: trend the LFts, DVT Px; off heparin for sx.
--- NOTE | 2018-12-20 23:35 | OP ---
DATE OF OPERATION: 12/20/2018 PREOPERATIVE DIAGNOSIS: Cholelithiasis and choledocholithiasis. POSTOPERATIVE DIAGNOSIS: Cholelithiasis and choledocholithiasis. PROCEDURE: Laparoscopic cholecystectomy. SURGEON: Nicholas Love M.D. CARTON STAPLER: Estephania Rogers ANESTHESIA: General anesthesia. OPERATIVE FINDINGS: There was cholelithiasis and adhesions to the gallbladder. The rest of the findings were unremarkable. PROCEDURE: The patient was placed on the operating table in the supine position and after the induction of general anesthesia the patient's abdomen was prepped with ChloraPrep and draped in sterile fashion. A timeout was taken and pneumoperitoneum established above the umbilicus using a Veress needle. Once 15 mmHg of pressure were obtained, a 5-mm port was placed at the umbilicus and additional lateral 5-mm ports and a subxiphoid 12-mm port. Laparoscopy was carried out and the previously noted findings were observed. Dissection was begun at the neck of the gallbladder where the peritoneum was opened medially and laterally using blunt dissection and electrocautery. The cystic duct was identified coursing from the neck of the gallbladder towards the common bile duct and it was dissected using blunt dissection proximally and distally for length. Similarly, the artery was identified and dissected proximally and distally for length. A critical view of safety was taken and then the duct and the artery were clipped twice proximally and twice distally with large hemoclips. The duct and artery were then serially divided using Endoshears. Hemostasis was checked for and noted to be good and then the gallbladder was removed from the liver bed in a retrograde fashion using electrocautery. Prior to removal from the edge of the liver, hemostasis in the liver bed was again checked for and noted to be good and then the gallbladder removed from the edge of the liver, placed in an EndoCatch, and brought out through the subxiphoid port. Pneumoperitoneum was reestablished. Copious irrigation was carried out with saline. Hemostasis was verified again. A 10-mm Casper-Good drain was placed in the right hepatorenal fossa and brought out through 1 of the 5-mm ports and secured to the skin with 2-0 silk suture. All port sites were removed under laparoscopic vision without evidence of bleeding from the port sites. The port sites were infiltrated with 0.5% Marcaine and the skin edges reapproximated with 4-0 Biosyn in a subcuticular continuous fashion. Steri-Strips and Band-Aid dressings were placed. The drain was connected to bulb suction and then the patient aroused from general anesthesia and transferred to the postanesthesia care unit in stable condition, awake and alert. ESTIMATED BLOOD LOSS: 25 mL. REPLACEMENT: Crystalloid. DRAINS: One 10-mm Casper-Good in gallbladder fossa. SPECIMEN: Gallbladder and contents to Pathology. I, Nicholas Love, was physically present in the operating room from the time the patient was placed on the operating table until she was transferred to the postanesthesia care unit in [place]. MD DIRK Yoder/[id number]
[2018-12-21] MEDS: LACTATED RINGERS SOLUTION 1,000 ML IV SCH ×2 (04:13→11:52)
[2018-12-21 07:05] LABS: BASO % 0.4 % (0-2.0); EOS % 4.2 % (0-4.5); HEMATOCRIT 30.1 % (32.4-45.2); HEMOGLOBIN 10.1 GM/dL (10.7-15.3); MCHC 33.6 g/dl (32.0-36.0); MEAN CELL VOLUME 89.3 fl (80-96); MEAN PLT VOLUME 10.1 fl (7.5-11.1); NEUT % 60.4 % (42.8-82.8); PLATELET COUNT 159 K/MM3 (134-434); RBC 3.37 M/mm3 (3.60-5.2); RDW 14.1 % (11.6-15.6); WHITE BLOOD COUNT 6.4 K/mm3 (4.0-10.0)
[2018-12-21 07:56] LABS: ALBUMIN 2.7 g/dl (3.4-5.0); AMYLASE 47 U/L (25-115); ANION GAP 7 MMOL/L (8-16); BILIRUBIN,TOTAL 0.5 mg/dL (0.2-1); BLOOD UREA NITROGEN 5 mg/dL (7-18); CHLORIDE 108 mmol/L (98-107); CO2 25 mmol/L (21-32); CREATININE 0.5 mg/dL (0.55-1.3); GLUCOSE,RANDOM 76 mg/dL (74-106); LIPASE 180 U/L (73-393); POTASSIUM 3.4 mmol/L (3.5-5.1); SGOT/AST 44 U/L (15-37); SGPT/ALT 170 U/L (13-61); SODIUM 140 mmol/L (136-145); TOT PROT 5.7 g/dl (6.4-8.2)
[2018-12-21 07:57] LABS: ALK PHOS 108 U/L (45-117)
--- NOTE | 2018-12-21 07:59 | PN ---
Progress Note (short form) - Note Progress Note: POD 1, s/p laparoscopic cholecystectomy Pt seen and examined. States she is doing well this morning. Had some pain overnight, controlled with pain regimen. Tolerating water, no n/v, Has been oob to restroom, voiding without issue. Denies cp/sob, calf pain. Vital Signs Temp 98.3 F 12/21/18 07:23 Pulse 74 12/21/18 07:23 Resp 20 12/21/18 07:23 BP 112/67 12/21/18 07:23 Pulse Ox 100 12/20/18 20:10 Intake & Output 12/20/18 12/20/18 12/21/18 11:59 23:59 11:59 Intake Total 6200 1575 1075 Output Total 2665 70 5 Balance 3535 1505 1070 Intake: IV 3450 1375 875 LACTATED RINGERS SOLUTION 1650 1,000 ml In 1,000 ml @ 150 mls/hr IV ASDIR YEHUDA Rx#:[id number] Lactated Ringers Solution 1375 875 1,000 ml @ 125 mls/hr IV ASDIR YEHUDA Rx#: [id number] IVPB 150 Oral 200 200 Other 2600 Output: Drainage 40 70 5 Right Abdomen 70 5 Urine 0 Estimated Blood Loss 25 Other 2600 Other: Voiding Method Toilet Indwelling Catheter # Unmeasured Voids Void 1 1 Bowel Movement No No CBC, BMP 12/21/18 06:00 Gen: awake, alert, nad Resp: unlabored on RA Abdo: soft, +ttp appropriate to status, dressings c/d/i with exception of drain dressing which has mild serosanguinous drainage (removed and changed to new 4x4/ tegaderm). Donna with no drainage in reservoir (just emptied), serosanguinous drainage in tubing (stripped). A/P: 33 y/o F w/ no PMHx, admitted 12/16 with abdominal pain, found to have Choledocolithiasis s/p ERCP with sphincterotomy/papillotomy, removal of calculus , and stent placement 12/17 now s/p Laparoscopic cholecystitis. Afebrile, VSS DONNA output 30ml yesterday afternoon, 5ml overnight (serosanguinous) -Keep drain in place and Monitor Donna output -F/U AM labs, replete potassium -oob ad aleyda -Advance diet as tolerated -Pain control as ordered d/w attending Dr Love DONNA drain removed this afternoon without issue, pt tolerated well. New dressing placed over ostium. D.C instructions reviewed with pt. Pt verbalized understanding. Planned for d/c later today. d/w attending Dr Love
[2018-12-21] MEDS ORDERED: KETOROLAC TROMETHAMINE 30 MG/1 ML VIAL IVPUSH PRN (08:03)
--- NOTE | 2018-12-21 08:40 | PN ---
Progress Note (short form) - Note Progress Note: Anesthesia postop note 33 y/o F s/p GA for Lap daniela POD#1, vss, aaox3, no complaints No anesthesia complications.
--- NOTE | 2018-12-21 08:48 | PN ---
Teaching Attending Note Name of Resident: Epifanio Azar ATTENDING PHYSICIAN STATEMENT I saw and evaluated the patient. I reviewed the resident's note and discussed the case with the resident. I agree with the resident's findings and plan as documented. SUBJECTIVE: Patient is s/p sx, feeling better, and wants to go home. OBJECTIVE: Vital Signs Temperature 98.3 F 12/21/18 07:23 Pulse Rate 74 12/21/18 07:23 Respiratory Rate 20 12/21/18 07:23 Blood Pressure 112/67 12/21/18 07:23 O2 Sat by Pulse Oximetry (%) 100 12/20/18 20:10 GENERAL: The patient is awake, alert, and fully oriented, in no acute distress. HEAD: Normal with no signs of trauma. EYES: PERRL, extraocular movements intact, sclera anicteric, conjunctiva clear. ENT: Ears normal, oropharynx clear without exudates, moist mucous membranes. NECK: Trachea midline, full range of motion, supple. LUNGS: Breath sounds equal, clear to auscultation bilaterally, no wheezes, no crackles, no accessory muscle use. HEART: Regular rate and rhythm, S1, S2 without murmur, rub or gallop. ABDOMEN: Soft, mild tendermness at the incision site, ND, normoactive bowel sounds, no guarding, no rebound, no masses appreciated. EXTREMITIES: 2+ pulses, warm, well-perfused, no edema. NEUROLOGICAL: Cranial nerves II through XII grossly intact. Normal speech, gait not observed. PSYCH: Normal mood, normal affect. SKIN: Warm, dry, normal turgor, no rashes or lesions noted CBCD WBC 6.4 K/mm3 (4.0-10.0) 12/21/18 06:00 RBC 3.37 M/mm3 (3.60-5.2) L 12/21/18 06:00 Hgb 10.1 GM/dL (10.7-15.3) L 12/21/18 06:00 Hct 30.1 % (32.4-45.2) L 12/21/18 06:00 MCV 89.3 fl (80-96) 12/21/18 06:00 MCHC 33.6 g/dl (32.0-36.0) 12/21/18 06:00 RDW 14.1 % (11.6-15.6) 12/21/18 06:00 Plt Count 159 K/MM3 (134-434) 12/21/18 06:00 MPV 10.1 fl (7.5-11.1) 12/21/18 06:00 CMP Sodium 140 mmol/L (136-145) 12/21/18 06:00 Potassium 3.4 mmol/L (3.5-5.1) L 12/21/18 06:00 Chloride 108 mmol/L (98-107) H 12/21/18 06:00 Carbon Dioxide 25 mmol/L (21-32) 12/21/18 06:00 Anion Gap 7 MMOL/L (8-16) L 12/21/18 06:00 BUN 5 mg/dL (7-18) L 12/21/18 06:00 Creatinine 0.5 mg/dL (0.55-1.3) L 12/21/18 06:00 Creat Clearance w eGFR 143.91 (>60) 12/21/18 06:00 Random Glucose 76 mg/dL (74-106) 12/21/18 06:00 Calcium 8.0 mg/dL (8.5-10.1) L 12/21/18 06:00 Total Bilirubin 0.5 mg/dL (0.2-1) 12/21/18 06:00 AST 44 U/L (15-37) H 12/21/18 06:00 ALT 170 U/L (13-61) H 12/21/18 06:00 Alkaline Phosphatase 108 U/L (45-117) 12/21/18 06:00 Total Protein 5.7 g/dl (6.4-8.2) L 12/21/18 06:00 Albumin 2.7 g/dl (3.4-5.0) L 12/21/18 06:00 Current Medications Generic Name Dose Route Start Last Admin Trade Name Freq PRN Reason Stop Dose Admin Heparin Sodium (Porcine) 5,000 unit 12/21/18 14:00 Heparin - SQ TID YEHUDA Lactated Ringer's 1,000 mls @ 125 mls/hr 12/20/18 11:00 12/21/18 04:13 Lactated Ringers Solution IV 125 mls/hr ASDIR YEHUDA Administration Ketorolac Tromethamine 30 mg 12/21/18 08:03 Toradol Injection - IVPUSH 12/26/18 08:02 Q6H PRN PAIN LEVEL 1-5 Ondansetron HCl 4 mg 12/20/18 10:43 Zofran Injection IVPUSH Q6H PRN NAUSEA Oxycodone HCl 5 mg 12/20/18 10:43 Roxicodone - PO Q4H PRN PAIN LEVEL 1-5 Oxycodone HCl 10 mg 12/20/18 10:43 12/20/18 17:46 Roxicodone - PO 10 mg Q4H PRN Administration PAIN LEVEL 7 - 10 Home Medications Medication Instructions Recorded Calcium Carbonate [Calcium] 500 mg PO DAILY 06/12/16 Ferrous Sulfate [Feosol] 325 mg PO DAILY 06/12/16 Ursodiol [Actigall] 300 mg PO BID 10/02/16 Ibuprofen [Motrin -] 600 mg PO Q4H PRN #30 tablet 10/08/16 US of abdomen: Gallstones ASSESSMENT AND PLAN: Patient is a 33yo female with PMHx of RA , presented with RUQ abdominal pain. # POD#1 s/p cholecystectomy by , follow with dr. anton within a week period. # s/p ERCP by , as per Dr. ferris notes: 3 stones found in the CBD, Two were removed after sphincterotomy was made but the 3rd could not be removed so a 7FR x 5cm length double pigtail stent was inserted. patient needs to follow up with him in 3 months period for stent removal and repeat of ERCP for the 3rd stone, meanwhile patient needs to continue on Actigall 300mg po bid until she sees in his office in 3 months period. # Acute transaminitis: improving. follow with primary within 1 week and have them repeat the LFts, will discharge the patient home on Tramadol and actigall follow with within a week period follow with in 3 months but call an appointment by next week. for the stent removal and the 3rd stone removal.
[2018-12-21] MEDS ORDERED: POTASSIUM CHLORIDE TABS 20 MEQ TABLET.ER (FP) PO ONE (09:30)
[2018-12-21 10:58] VITALS: BP 116/65; PULSE 65; TEMP 98
--- NOTE | 2018-12-21 13:41 | DS ---
Physical Exam: SUBJECTIVE: Patient seen and examined at bedside. no acute events overnight. POD #1 Lap Marii. OBJECTIVE: Vital Signs Period Temp Pulse Resp BP Sys/Mcgregor Pulse Ox Last 24 Hr 97.9 F-98.9 F 65-80 16-20 112-122/65-78 100 PHYSICAL EXAM GENERAL: No acute distress HEAD: Atraumatic/Normocephalic. EYES: EOMI Sclera Clear No scleral icterus appreciated ENT: MMM NECK: Trachea midline, full range of motion, supple. LUNGS: CTAB HEART: RRR No MRG S1S2 ABDOMEN: Band aides at sites of trochar insertion. NDNT. DONNA drain removed EXTREMITIES: No CCE NEUROLOGICAL: Cranial nerves II through XII grossly intact. . PSYCH: Normal mood, normal affect. SKIN: No jaundice appreciated LABS Laboratory Results - last 24 hr 12/21/18 12/21/18 06:00 06:00 WBC 6.4 RBC 3.37 L Hgb 10.1 L Hct 30.1 L MCV 89.3 MCH 30.0 MCHC 33.6 RDW 14.1 Plt Count 159 MPV 10.1 Absolute Neuts (auto) 3.9 Neutrophils % 60.4 Lymphocytes % 24.0 D Monocytes % 11.0 H Eosinophils % 4.2 Basophils % 0.4 Nucleated RBC % 0 Sodium 140 Potassium 3.4 L Chloride 108 H Carbon Dioxide 25 Anion Gap 7 L BUN 5 L Creatinine 0.5 L Creat Clearance w eGFR 143.91 Random Glucose 76 Calcium 8.0 L Total Bilirubin 0.5 AST 44 H ALT 170 H Alkaline Phosphatase 108 Total Protein 5.7 L Albumin 2.7 L Total Amylase 47 Lipase 180 HOSPITAL COURSE: Date of Admission:12/16/18 Pt is a 33 year old female with a significant past medical history of rheumatoid arthritis presented to [facility] with a 1 day history of RUQ abdominal pain. Pt underwent imaging of her abdomen with an MRCP. Imaging revealed a distended gallbladder with multiple large gallstones in addition to small stones within the cystic duct with questionable trace pericholecystic fluid. Pt was placed on lactated ringer at 200cc/hr. GI and Surgery were consulted. AST and ALT were 982 and 797 at their respective zeniths; t bili was 2.0. Pt subsequently underwent an ERCP with Dr Schwab which yielded 2 stones from the common bile duct. A third stone was unable to be attained therefore a 7fr 3 cm stent was placed by the G.I physician. Pt was placed on Flagyl and Ancef. Furthermore, pt underwent a cholecystectomy with Dr Love which was uneventful. Pt was discharged the following day. Date of Discharge: 12/21/18 Minutes to complete discharge: 35 Discharge Summary Reason For Visit: ELEVATED TRANSAMINASE MEASUREMENT BILIARY COLIC Current Active Problems Biliary colic (Acute) Choledocholithiasis (Acute) Transaminitis (Acute) Condition: Stable - Instructions Diet, Activity, Other Instructions: You presented to the hospital due to abdominal pain. you underwent a cholecystectomy with Dr Oscar Love. you also underwent a procedure called an ERCP. A stent was placed inside you. this stent will have to be removed by in 3 months period. Please take STOOL SOFTENER ;COLACE ,TO AVOID CONSTIPATION. Follow with your primary within a week period for repeat labs. need to repeat CMP, cbc in a week period. Please follow up with the following physicians: Dr Nicholas Love this week. Please make an appointment to see Dr Love. His office number is provided in your discharge papers Dr Emperatriz Schwab. You have a stent inside you. This stent will have to be removed. Please follow up with your primary care doctor. If you do not have a primary care doctor, you may follow up at our clinic. A referral has been provided in your discharge papers. Dr Cunha [address], [place]. [phone] Dr. Love Discharge Instructions Dear DAVIS MATIAS, Post Operative Instructions Physical activity Resume your normal everyday activity as tolerated no heavy lifting or exercise until seen by your surgeon. You may walk unlimited amounts of and climb stairs. You may resume driving the car when you feel safe and comfortable behind the wheel. Wound care If you have a bandage, leave it on, and keep dry for 48 - 72 hours. After that time discard the outer bandage. If there are tapes on the skin under the outer bandage, leave them in place. They will peel off in the next 7 to 10 days. Do Not peel them off. You may shower 2 days after surgery. If there are tapes present on the skin, they can get wet. Diet There are no dietary restrictions. Eat healthy, high-fiber foods. Drink 6 to 8 glasses of liquid each day. This will assist in keeping your bowels are regular. Pain management You may take Tylenol or acetaminophen or Ibuprofen (for example, Motrin, Advil etc.) Any pain prescription medication ordered should be taken as prescribed for moderate to severe pain. Do not drive, drink alcohol or operate heavy machinery while taking narcotic pain medications. Call Dr. Love for any of the following: Severe pain not relieved by medication Fever of 101 or higher Excessive bleeding or drainage on dressing Inability to urinate Call the office at [phone] for a post operative appointment in 7 - 10 days. PLEASE RETURN TO THE EMERGENCY ROOM IF YOU BEGIN TO EXPERIENCE CHEST PAIN, SHORTNESS OF BREATH, NAUSEA/VOMITING, OR FEVERS. Referrals: Hipolito Cunha MD [Staff Physician] - 1 Week Nicholas Love MD [Staff Physician] - 1 Week Emperatriz Schwab MD [Staff Physician] - 1 Week (CALL MD'S OFFICE FOR REPEAT ERCP.) Disposition: HOME - Home Medications Comprehensive Discharge Medication List: Ambulatory Orders Calcium Carbonate [Calcium] 500 mg PO DAILY 06/12/16 Ferrous Sulfate [Feosol] 325 mg PO DAILY 06/12/16 Ursodiol [Actigall] 300 mg PO BID 10/02/16 Ibuprofen [Motrin -] 600 mg PO Q4H PRN #30 tablet 10/08/16 This patient is new to me today: No Emergency Visit: Yes ED Registration Date: 12/16/18 Care time: The patient presented to the Emergency Department on the above date and was hospitalized for further evaluation of their emergent condition. Critical Care patient: No - Discharge Referral Referred to [facility] Med P.C.: No
[2018-12-21] MEDS ORDERED: HEPARIN NA (PORCINE) 5,000 UNITS/ML 1ML VIAL SQ SCH (14:00)
--- NOTE | 2018-12-21 17:02 | PATH ---
Surgical Pathology Report Patient Name: DAVIS MATIAS Med. Rec. #: [id number] /Age/Gender: 1985 (Age: 33) / F Account: [id number] Location: [facility] MED/SURG Taken: 12/20/2018 Received: 12/20/2018 Reported: 12/21/2018 Physicians: MD Benny Yoder MD Specimen(s) Received GALLBLADDER Clinical History Choledocholithiasis Final Diagnosis GALLBLADDER, CHOLECYSTECTOMY: CHRONIC CHOLECYSTITIS AND CHOLESTEROLOSIS. CHOLELITHIASIS. Electronically Signed Telma Callahan M.D. Gross Description Received in formalin, labeled "gallbladder," is a 6.8 x 3.2 x 2.3 cm. gallbladder with a 0.2 cm. in length portion of cystic duct attached. The outer surface is tamayo-pink with a focal defect and varies from smooth to shaggy. The lumen contains green, tenacious bile as well as 4 green, irregular choleliths ranging from 0.6-2.0 cm in greatest dimension. The mucosa is tamayo-green and focally eroded. The wall of the gallbladder ranges from 0.1-0.3 cm. in thickness. Machine Paint Mixer sections are submitted in one cassette. /12/20/201812/20/2018
== END 2018-12-21 16:42 | disposition home or self-care (01) | DRG 263 ==
LOC: JER 23:14 → JERBED 12-16 04:53 → OBSVTOIN 12-16 07:37 → J8W 12-16 09:38
PROVIDERS: ADMIT Internal Medicine; ATTEND Internal Medicine
PROC: 0F798DZ Dilation of Common Bile Duct with Intraluminal Device, Via Natural or Artificial Opening Endoscopic (ICD-10-PCS; 2018-12-17)
PROC: 0FC98ZZ Extirpation of Matter from Common Bile Duct, Via Natural or Artificial Opening Endoscopic (ICD-10-PCS; principal; 2018-12-17 16:00)
PROC: 0FT44ZZ Resection of Gallbladder, Percutaneous Endoscopic Approach (ICD-10-PCS; 2018-12-20)
DX: K80.50 Calculus of bile duct without cholangitis or cholecystitis without obstruction (principal); M06.9 Rheumatoid arthritis, unspecified; R74.0 Nonspecific elevation of levels of transaminase and lactic acid dehydrogenase [LDH]; K85.10 Biliary acute pancreatitis without necrosis or infection
CPT/HCPCS: 36415; 74181-TC; 76705-TC; 80048; 80053; 80076; 80307; 81003; 82150; 82248; 83690; 83735; 84100; 84703; 85025; 85027; 85610; 85730; 86140; 86704; 86706; 86708; 86803; 86850; 86900; 86901; 87340; 88304-TC; 93005; 93010; 94010; 94760; 99284-25; G0378; J1644; J7030

== ENCOUNTER 2019-04-07 22:00 | Emergency (ER) | payer OTHER ==
[2019-04-07 22:30] VITALS: BP 112/78; PULSE 60; TEMP 98.5; BMI 24.5
--- NOTE | 2019-04-07 23:32 | PDOC ---
History of Present Illness - General Chief Complaint: Pain Stated Complaint: STOMACH PAIN Time Seen by Provider: 04/07/19 22:39 - History of Present Illness Initial Comments: 04/07/19 23:29 CHIEF COMPLAINT: abd pain HISTORY OF PRESENT ILLNESS: 34 yo F with hx of gallstones, rheumatoid arthritis presents to ED with epigastric pain since yesterday. Patient states she is followed by TABITHA schwab and "i think he wants to take out the stone because it's next to the liver." Patient does not have a PCP. Patient reports chills but denies fever, nausea, vomiting, diarrhea. No recent travel or sick contacts. PAST MEDICAL HISTORY: Denies past medical history FAMILY HISTORY: Denies SOCIAL HISTORY: Denies tobacco, alcohol, illicit drug use. SURGICAL HISTORY: Denies ALLERGIES: No known drug allergies REVIEW OF SYSTEMS General/Constitutional: Denies fever or chills. Denies weakness, weight change. HEENT: Denies change in vision. Denies ear pain or discharge. Denies sore throat. Cardiovascular: Denies chest pain or shortness of breath. Respiratory: Denies cough, wheezing, or hemoptysis. Gastrointestinal: RUQ pain. Denies nausea, vomiting, diarrhea or constipation. Denies rectal bleeding. Genitourinary: Denies dysuria, frequency, or change in urination. Musculoskeletal: Denies joint or muscle swelling or pain. Denies neck or back pain. Skin: Denies rash or easy bruising. Neurologic: Denies headache, vertigo, loss of consciousness, or loss of sensation. PHYSICAL EXAM General Appearance: Well-appearing, appropriately dressed. No apparent distress , no intoxication. HEENT: EOMI, PERRLA, normal ENT inspection, normal voice, TMs normal, pharynx normal. No conjunctival pallor. No photophobia, scleral icterus. Neck: Supple. Trachea midline. No tenderness, rigidity, carotid bruit, stridor , lymphadenopathy, or thyromegaly. Respiratory/Chest: Lungs CTAB. No shortness of breath, chest tenderness, respiratory distress, accessory muscle use. No crackles, rales, rhonchi, stridor , wheezing, dullness Cardiovascular: RRR. S1, S2. No JVD, murmur, bradycardia, tachycardia. Vascular Pulses: Dorsalis-Pedis (R): 2+, Dorsalis-Pedis (L): 2+ Gastrointestinal/Abdominal: RUQ/epigastric TTP.. No organomegaly, pulsatile mass, guarding, hernia, hepatomegaly, splenomegaly. Lymphatic: No adenopathy, tenderness. Musculoskeletal/Extremities: Normal inspection. FROM of all extremities, normal capillary refill. Pelvis Stable. No CVA tenderness. No tenderness to extremities, pedal edema, swelling, erythema or deformity. Integumentary: Appropriate color, dry, warm. No cyanosis, erythema, jaundice or rash Neurologic: tutoring manager II-XII intact. Fully oriented, alert. Appropriate mood/affect. Motor strength 5/5. No appreciable EOM palsy, facial droop or sensory deficit. Past History - Past Medical History Allergies/Adverse Reactions: Allergies Allergy/AdvReac Type Severity Reaction Status Date / Time No Known Allergies Allergy Verified 04/07/19 22:29 Home Medications: Ambulatory Orders Ursodiol [Actigall] 300 mg PO BID #60 capsule 12/21/18 Cimza 220 mg SQ ACDIN 03/31/19 Asthma: No Cancer: No Cardiac Disorders: No COPD: No Diabetes: No HTN: No Liver Disease: Yes (NAFLD) Seizures: No Thyroid Disease: No - Surgical History Cholecystectomy: Yes (LAPAROSCOPIC) - Reproductive History (#): 2 Para: 2 - Suicide/Smoking/Psychosocial Hx Smoking History: Never smoked Have you smoked in the past 12 months: No Information on smoking cessation initiated: No Hx Alcohol Use: No Drug/Substance Use Hx: No Substance Use Type: None Hx Substance Use Treatment: No *Physical Exam - Vital Signs Last Vital Signs Temp Pulse Resp BP Pulse Ox 98.5 F 60 18 112/78 100 04/07/19 22:27 04/07/19 22:27 04/07/19 22:27 04/07/19 22:27 04/07/19 22:27 Medical Decision Making - Medical Decision Making 04/07/19 23:46 Pt's GI MD Schwab was in ED [facility], discussed case with Dr. Schwab who states patient missed her ERCP appointment today. Patient admits that she "forgot" to come. Dr. Schwab states patient is stable to go home and needs to reschedule ERCP for next week. *DC/Admit/Observation/Transfer Diagnosis at time of Disposition: Biliary colic - Discharge Dispostion Disposition: HOME Condition at time of disposition: Stable Decision to Admit order: No - Referrals Referrals: Emperatriz Schwab MD [Staff Physician] - - Patient Instructions Additional Instructions: As discussed with Dr. Schwab, you MUST follow up on Thursday with his office to reschedule your test. Remember that you must come to the hospital EARLY on THURSDAY of next week. If you develop fever, chills, vomiting, diarrhea, or any new or worsening symptoms, please return to the ER. - Post Discharge Activity
== END 2019-04-08 00:01 | disposition home or self-care (01) ==
LOC: JER 22:00
DX: K80.50 Calculus of bile duct without cholangitis or cholecystitis without obstruction (principal); M06.9 Rheumatoid arthritis, unspecified
CPT/HCPCS: 99282-25

== ENCOUNTER 2019-04-14 10:35 | Inpatient (IN) | payer OTHER ==
--- NOTE | 2019-04-14 11:13 | PDOC ---
History of Present Illness - General Chief Complaint: Pain, Acute Stated Complaint: ABD PAIN Time Seen by Provider: 04/14/19 10:55 History Source: Patient Exam Limitations: No Limitations - History of Present Illness Travel History: No Initial Comments: 04/14/19 11:17 34y F hx of cholangitis s/p cholecystectomy presents with RUQ pain. Pt notes she has a remaining stone in the liver. Pt was here last week, and per dr. taylor was seen in the ED, had planned for ERCP last week but there were problems and pt did not get her procedure. was told josue tif pain worsened, she should come back to the ED. The ptient crystal any fever/chils, n/v, dysuria, ferquncy, dirarhea, melena, bpr. No PMD Gi: brandon soc: denies etoh abuse, drug abuse Constitutional - no reported Fever, Chills, HEENT: no reported vision changes, sore throat Respiratory: no reported cough, sob, hemoptysis Cardiac: no reported chest pain, palpitations, light headedness, leg swelling Abd/GI: +abd pain, no reported nausea, vomiting, blood per rectum, melena, diarrhea : no reported dysuria, frequency, discharge Musculskelatal - no reported back pain, joint swelling skin - no reported bruising, erythema, rash neurological: no reported headache, numbness, focal weakness, tingling, ataxia, hematologic: no reported easy bruising, easy bleeding GENERAL: The patient is awake, alert, and fully oriented, Nontoxic - in no acute distress. HEAD: Normocephalic, atraumatic. EYES: extraocular movements intact, sclera anicteric, conjunctiva clear. ENT: Normal voice, Moist mucous membranes. NECK: Normal range of motion, supple LUNGS: Breath sounds equal, clear to auscultation bilaterally. No wheezes, no rhonchi, no rales. HEART: Regular rate and rhythm, normal S1 and S2 without murmur, rub or gallop. ABDOMEN: mild epgiastrc tenderness, No guarding, no rebound. No CVA tenderness EXTREMITIES: Normal range of motion, no edema. NEUROLOGICAL: No facial assymetry, Normal speech, PSYCH: Normal mood, normal affect. SKIN: Warm, Dry, normal turgor, will ck labs, US of liver will dw dr. mcmanuszicki Past History - Past Medical History Allergies/Adverse Reactions: Allergies Allergy/AdvReac Type Severity Reaction Status Date / Time No Known Allergies Allergy Verified 04/07/19 22:29 Home Medications: Ambulatory Orders Ursodiol [Actigall] 300 mg PO BID #60 capsule 12/21/18 Cimza 220 mg SQ ACDIN 03/31/19 Asthma: No Cancer: No Cardiac Disorders: No COPD: No Diabetes: No HTN: No Liver Disease: Yes (NAFLD) Seizures: No Thyroid Disease: No Other medical history: GALL STONES - Surgical History Cholecystectomy: Yes (LAPAROSCOPIC) - Reproductive History (#): 2 Para: 2 - Suicide/Smoking/Psychosocial Hx Smoking History: Never smoked Have you smoked in the past 12 months: No Information on smoking cessation initiated: No Hx Alcohol Use: No Drug/Substance Use Hx: No Substance Use Type: None Hx Substance Use Treatment: No *Physical Exam - Vital Signs Last Vital Signs Temp Pulse Resp BP Pulse Ox 98.1 F 62 12 106/52 L 100 04/14/19 10:38 04/14/19 10:38 04/14/19 10:38 04/14/19 10:38 04/14/19 10:38 ED Treatment Course - LABORATORY CBC & Chemistry Diagram: 04/14/19 11:36 04/14/19 11:36 Medical Decision Making - Medical Decision Making 04/14/19 12:37 case heidi taylor -if pt with persistent pain will need to come in for ercp 04/14/19 13:17 labs reviewed unermarkable xray noted that biliar stent present will admit for fuerther mangaement 04/14/19 14:00 case dw RUDI Roman, agree with admission under dr. cruz's service stable for med surg Case discussed in detail with admitting physician including history, physical exam and ancillary studies. Admitting physician has assumed care for the patient, will follow all pending diagnostics and will complete the evaluation and treatment. 04/14/19 14:01 *DC/Admit/Observation/Transfer Diagnosis at time of Disposition: Abdominal pain, RUQ - Discharge Dispostion Condition at time of disposition: Stable Decision to Admit order: Yes - Referrals - Patient Instructions - Post Discharge Activity
[2019-04-14 11:59] LABS: BASO % 0.4 % (0-2.0); EOS % 1.6 % (0-4.5); HEMATOCRIT 30.5 % (32.4-45.2); LYMPH % 25.1 % (8-40); MCH 27.5 pg (25.7-33.7); MCHC 32.9 g/dl (32.0-36.0); MEAN CELL VOLUME 83.5 fl (80-96); MEAN PLT VOLUME 9.3 fl (7.5-11.1); MONO % 9.7 % (3.8-10.2); NEUT % 63.2 % (42.8-82.8); PLATELET COUNT 256 K/MM3 (134-434); RBC 3.65 M/mm3 (3.60-5.2); RDW 15.3 % (11.6-15.6); WHITE BLOOD COUNT 5.5 K/mm3 (4.0-10.0)
[2019-04-14 12:19] LABS: EPI CELLS 3.4 /HPF (0-5/HPF); HYALINE CASTS 4 /lpf (0-8); URINE APPEARANCE CLEAR; URINE BACTERIA 38.4 /hpf (NEGATIVE); URINE BILIRUBIN NEGATIVE (NEGATIVE); URINE COLOR YELLOW; URINE GLUCOSE (UA) NEGATIVE (NEGATIVE); URINE KETONE TRACE (NEGATIVE); URINE LEUK ESTERASE TRACE (NEGATIVE); URINE NITRITE NEGATIVE (NEGATIVE); URINE PROTEIN NEGATIVE (NEGATIVE); URINE RBC 1 /hpf (0-4); URINE UROBILINOGEN 0.2 mg/dL (0.2-1.0); URINE WBC 2 /hpf (0-5)
[2019-04-14 12:21] LABS: ALBUMIN 3.5 g/dl (3.4-5.0); BILIRUBIN,TOTAL 0.4 mg/dL (0.2-1); BLOOD UREA NITROGEN 10.9 mg/dL (7-18); CALCIUM 8.3 mg/dL (8.5-10.1); CREATININE 0.6 mg/dL (0.55-1.3); POTASSIUM 3.9 mmol/L (3.5-5.1); TOT PROT 7.1 g/dl (6.4-8.2)
[2019-04-14] MEDS ORDERED: ACETAMINOPHEN 1000 MG/100 ML VIAL (NON FORMULARY) IVPB ONE (13:21)
[2019-04-14] MEDS ORDERED: ACETAMINOPHEN INJECTION 100 ML IVPB ONE (13:48)
--- NOTE | 2019-04-14 16:20 | HP ---
Admitting History and Physical - Admission Chief Complaint: abdominal pain History of Present Illness: Patient is a 34 year old female with a significant past medical history of rheumatoid arthritis, cholangitis s/p cholecystectomy on 12/20/2018. She presents to the ED today with RUQ pain that she states is severe 05/31. Patient most recently admitted to [facility] on 12/2018 with RUQ abdominal pain. On the 2018 stay, she underwent underwent imaging of her abdomen with an MRCP which revealed a distended gallbladder with multiple large gallstones in addition to small stones within the cystic duct. Her AST/ALT were elevated on that admission and her bili was 2.0. She underwent an ERCP with Dr Schwab which showed 2 stones from the common bile duct. A third stone was unable to be obtained and a stent was placed by the GI. Patient was placed on IV antibiotics and on 12/20/2018 she had a cholecystectomy with Dr Love. patient was discharged on 12/21/2018 and was following up with Dr. Teresa. She presents today with RUQ pain. She had a planned ERCP last week but the procedure was not yet done. Patient is now having severe RUQ pain and returns to the ED for GI evaluation and pain control. She denies any fever/chils, n/v , dysuria, ferquncy, diarrhea, melena or chest pain. History Source: Patient Limitations to Obtaining History: No Limitations - Past Medical History Gastrointestinal: Yes: Other Hepatobiliary: Yes: Cholelithiasis, Other (cholestasis of during 2nd and 3rd ) ...LMP: 03/16/19 Rheumatology: Yes: Rheumatoid Arthritis - Past Surgical History Past Surgical History: Yes: (x2) - Smoking History Smoking history: Never smoked Have you smoked in the past 12 months: No - Alcohol/Substance Use Hx Alcohol Use: No History of Substance Use: reports: None - Social History ADL: Independent Occupation: former bench worker History of Recent Travel: No Home Medications - Allergies Allergies/Adverse Reactions: Allergies Allergy/AdvReac Type Severity Reaction Status Date / Time No Known Allergies Allergy Verified 04/21/19 12:12 - Home Medications Home Medications: Ambulatory Orders Ursodiol [Actigall] 300 mg PO BID #60 capsule 12/21/18 Cimza 220 mg SQ .Q2WEEK 03/31/19 Pantoprazole Sodium [Protonix -] 40 mg PO DAILY #60 tablet.ec 04/16/19 Ursodiol [Actigal] 300 mg PO BID #60 capsule 04/16/19 Review of Systems - Review of Systems Constitutional: reports: Chills Eyes: reports: No Symptoms HENT: reports: No Symptoms Neck: reports: No Symptoms Cardiovascular: reports: No Symptoms Respiratory: reports: No Symptoms Gastrointestinal: reports: Abdominal Pain Genitourinary: reports: No Symptoms Breasts: reports: No Symptoms Reported Musculoskeletal: reports: No Symptoms Integumentary: reports: No Symptoms Neurological: reports: No Symptoms Endocrine: reports: No Symptoms Physical Examination Vital Signs: Vital Signs Temperature 98.1 F 04/14/19 10:38 Pulse Rate 62 04/14/19 10:38 Respiratory Rate 12 04/14/19 10:38 Blood Pressure 106/52 L 04/14/19 10:38 O2 Sat by Pulse Oximetry (%) 100 04/14/19 10:38 Constitutional: Yes: Well Nourished, No Distress, Calm Eyes: Yes: WNL HENT: Yes: WNL Neck: Yes: WNL Cardiovascular: Yes: WNL Respiratory: Yes: WNL Gastrointestinal: Yes: Normal Bowel Sounds, Soft ...Rectal Exam: Yes: Deferred Edema: No Integumentary: Yes: WNL Wound/Incision: Yes: Clean/Dry Neurological: Yes: WNL, Alert, Oriented ...Motor Strength: WNL Psychiatric: Yes: WNL Labs: CBC, BMP 04/14/19 11:36 04/14/19 11:36 Imaging - Results Ultrasound: Report Reviewed Problem List - Problems (1) Abdominal pain, RUQ Assessment/Plan: possible ERCP. GI evaluation. pain management with morphine/tylenol/oxycodone zofran prn Code(s): R10.11 - RIGHT UPPER QUADRANT PAIN (2) Biliary colic Assessment/Plan: for ERCP Code(s): K80.50 - CALCULUS OF BILE DUCT W/O CHOLANGITIS OR CHOLECYST W/O OBST (3) Prophylactic measure Assessment/Plan: fen PO fluids daily cmp low cholesterol diet scds full code Code(s): Z29.9 - ENCOUNTER FOR PROPHYLACTIC MEASURES, UNSPECIFIED Visit type - Emergency Visit Emergency Visit: Yes ED Registration Date: 04/14/19 Care time: The patient presented to the Emergency Department on the above date and was hospitalized for further evaluation of their emergent condition. - New Patient This patient is new to me today: Yes Date on this admission: 05/01/19 - Critical Care Critical Care patient: No
[2019-04-14] MEDS ORDERED: oxyCODONE HCL 5 MG TABLET PO PRN ×2 (18:52)
[2019-04-14] MEDS ORDERED: ACETAMINOPHEN 325 MG TABLET (FP) PO PRN (18:53)
[2019-04-14] MEDS ORDERED: MELATONIN 5 MG TABLETS PO PRN (18:55)
[2019-04-14] MEDS ORDERED: SODIUM CHLORIDE 1,000 ML IV SCH (19:00)
--- NOTE | 2019-04-14 22:25 | CON.GI ---
Consult Consult Specialty:: Gastroenterology Referred by:: Jose Angel Monroe MD Reason for Consultation:: RUQ pain - History of Present Illness Chief Complaint: Recuring RUQ pain History of Present Illness: 34F has recurring RUQ pain that I suspect is due to migration of her CBD stent or perhaps the retained stone. This has not responded to a course of Actigal. I have been attempting to arrange an ERCP for the past 2 weeks. She was told to come to the ER if her pain worsens which occurred this morning. She denies chills. FUA confirms that he stent is still in place. She had an ERCP with me on 11/18/18 when she presented with similar biliary colic. The found 3 stones but could only remove the 2 smaller ones so a stent was placed with the plan to repeat ERCP after a course of Actigall. I discovered during her 01/25/19 office visit that she never got the Actigal so I started it then with plans to repeat the ERCP after 8 weeks. . She had a lap choly on 12/20/18. I had advised an elective cholecystectomy after the but this did not occur until after she developed choledocholithiasis. - History Source History Provided By: Patient Limitations to Obtaining History: No Limitations - Past Medical History Hepatobiliary: Yes: Cholelithiasis (since 11/09 when ERCP on 10/2818 removed 2 smaller stones. The largest stone could not be extracted so a stent was placed. ), Other (cholestasis of 2017, fatty liver) ...LMP: 03/16/19 Rheumatology: Yes: Rheumatoid Arthritis - Past Surgical History Past Surgical History: Yes: Cholecystectomy (laparoscopic 01/07), (x2) - Alcohol/Substance Use Hx Alcohol Use: No History of Substance Use: reports: None - Smoking History Smoking history: Never smoked Have you smoked in the past 12 months: No - Social History Usual Living Arrangement: With Significant Other ADL: Independent Occupation: former restaurant crew member Place of : Other ([place]) Came to [place] (year): age 18 History of Recent Travel: No Home Medications - Allergies Allergies/Adverse Reactions: Allergies Allergy/AdvReac Type Severity Reaction Status Date / Time No Known Allergies Allergy Verified 04/07/19 22:29 - Home Medications Home Medications: Ambulatory Orders Ursodiol [Actigall] 300 mg PO BID #60 capsule 12/21/18 Cimza 220 mg SQ ACDIN 03/31/19 Family Disease History - Family Disease History Family Disease History: Other: Father ( 68 of ETOH cirrhosis), Sister ( Rheumatoid arthritis) Review of Systems - Review of Systems Constitutional: reports: No Symptoms Eyes: reports: No Symptoms HENT: reports: No Symptoms Neck: reports: No Symptoms Cardiovascular: reports: No Symptoms Gastrointestinal: reports: Abdominal Pain Genitourinary: reports: No Symptoms Musculoskeletal: reports: No Symptoms Physical Exam-GI Vital Signs: Vital Signs Temperature 98.1 F 04/14/19 18:50 Pulse Rate 82 04/14/19 18:50 Respiratory Rate 16 04/14/19 18:50 Blood Pressure 117/72 04/14/19 18:50 O2 Sat by Pulse Oximetry (%) 98 04/14/19 19:17 CBC,CMP WBC 5.5 K/mm3 (4.0-10.0) 04/14/19 11:36 RBC 3.65 M/mm3 (3.60-5.2) 04/14/19 11:36 Hgb 10.0 GM/dL (10.7-15.3) L 04/14/19 11:36 Hct 30.5 % (32.4-45.2) L 04/14/19 11:36 MCV 83.5 fl (80-96) 04/14/19 11:36 MCH 27.5 pg (25.7-33.7) 04/14/19 11:36 MCHC 32.9 g/dl (32.0-36.0) 04/14/19 11:36 RDW 15.3 % (11.6-15.6) 04/14/19 11:36 Plt Count 256 K/MM3 (134-434) D 04/14/19 11:36 MPV 9.3 fl (7.5-11.1) 04/14/19 11:36 Absolute Neuts (auto) 3.5 K/mm3 (1.5-8.0) 04/14/19 11:36 Neutrophils % 63.2 % (42.8-82.8) 04/14/19 11:36 Lymphocytes % 25.1 % (8-40) 04/14/19 11:36 Monocytes % 9.7 % (3.8-10.2) 04/14/19 11:36 Eosinophils % 1.6 % (0-4.5) 04/14/19 11:36 Basophils % 0.4 % (0-2.0) 04/14/19 11:36 Nucleated RBC % 0 % (0-0) 04/14/19 11:36 Sodium 141 mmol/L (136-145) 04/14/19 11:36 Potassium 3.9 mmol/L (3.5-5.1) 04/14/19 11:36 Chloride 111 mmol/L (98-107) H 04/14/19 11:36 Carbon Dioxide 25 mmol/L (21-32) 04/14/19 11:36 Anion Gap 5 MMOL/L (8-16) L 04/14/19 11:36 BUN 10.9 mg/dL (7-18) 04/14/19 11:36 Creatinine 0.6 mg/dL (0.55-1.3) 04/14/19 11:36 Est GFR (CKD-EPI)AfAm 139.78 04/14/19 11:36 Est GFR (CKD-EPI)NonAf 120.61 04/14/19 11:36 Random Glucose 81 mg/dL (74-106) 04/14/19 11:36 Calcium 8.3 mg/dL (8.5-10.1) L 04/14/19 11:36 Total Bilirubin 0.4 mg/dL (0.2-1) 04/14/19 11:36 AST 27 U/L (15-37) 04/14/19 11:36 ALT 40 U/L (13-61) 04/14/19 11:36 Alkaline Phosphatase 85 U/L (45-117) 04/14/19 11:36 Total Protein 7.1 g/dl (6.4-8.2) 04/14/19 11:36 Albumin 3.5 g/dl (3.4-5.0) 04/14/19 11:36 Lipase 184 U/L (73-393) 04/14/19 11:36 Current Medications Generic Name Dose Route Start Last Admin Trade Name Freq PRN Reason Stop Dose Admin Acetaminophen 650 mg 04/14/19 18:53 Tylenol - PO Q6H PRN PAIN LEVEL 1-5 Sodium Chloride 1,000 mls @ 100 mls/hr 04/14/19 19:00 04/14/19 19:16 Normal Saline - IV 100 mls/hr ASDIR YEHUDA Administration Melatonin 5 mg 04/14/19 18:55 Melatonin PO HS PRN INSOMNIA Oxycodone HCl 5 mg 04/14/19 18:52 Roxicodone - PO Q6H PRN PAIN LEVEL 4 - 6 Oxycodone HCl 10 mg 04/14/19 18:52 Roxicodone - PO Q6H PRN PAIN LEVEL 7 - 10 Pantoprazole Sodium 40 mg 04/15/19 10:00 Protonix - PO DAILY YEHUDA Ursodiol 300 mg 04/14/19 22:00 Actigal - PO BID YEHUDA Constitutional: Yes: Calm Eyes: Yes: Conjunctiva Clear HENT: Yes: Atraumatic Neck: Yes: Supple Cardiovascular: Yes: Regular Rate and Rhythm Respiratory: Yes: CTA Bilaterally Gastrointestinal Inspection: Yes: Scars (healed laparoscopic and Pfannensteil incisions) ...Auscultate: Yes: Normoactive Bowel Sounds ...Palpate: Yes: Soft, Tenderness (RUQ but no peritoneal signs) ...Rectal Exam: Yes: Deferred Labs: CBC, BMP 04/14/19 11:36 04/14/19 11:36 Imaging - Results Ultrasound: Report Reviewed ( Final Report US ABDOMEN US -LIMITED Show Printer-Friendly Version Patient Name: Jay Davis : 1984 ID: [id number] Study Date: 14-Apr-2019 11:48 Ce[place] Srivastava Name : DAVIS MATIAS DEPARTMENT OF RADIOLOGY Phys: Jose Angel Monroe MD : 1984 Age: 34 Sex: F [facility] Acct: [id number] Loc: [address] Exam Date: 04/14/19 Status: REG [place] [id number] Unit Number: [id number] EXAM#: TYPE/EXAM: RESULT: [id number] US/ABDOMEN US -LIMITED Right upper quadrant abdomen ultrasound CLINICAL INFORMATION: RUQ pain Status post interval cholecystectomy comparison to a prior ultrasound exam of 12/16/2018. There is no obvious fluid collection within the gallbladder fossa. The common bile duct appears unremarkable in diameter measuring 0.5 cm. No gross intraductal calculus is identified within the limitations of transabdominal sonography. The liver, right kidney and partially visualized pancreas demonstrate no sonographic abnormality. No free intraperitoneal fluid is noted. IMPRESSION: Status post interval cholecystectomy comparison to a prior study of 12/08/2018. There is no definite biliary tract dilatation. No obvious hepatic pathology is visualized Reported By: David Brown MD 04/14/191410 Jose Angel Monroe Technologist: Brea Escobar Transcribed Date/Time: 04/14/191410 Software Test Analyst: David Brown Printed Date/Time: By: Signed by: David Brown Signed on: 2018 14:12) Problem List - Problems (1) Biliary colic Assessment/Plan: I believe that Davis's pain is either due to her residual stent or stone movement and both need to be removed before she develops cholangitis. I have obtained on informed consent for ERCP with stent and stone extraction after informing Davis of the potential for such complications as perforation and hemorrhage and ERCP induced pancreatitis which could lead to multiorgan failure. She has signed an informed consent and I will do the procedure tomorrow with antibiotic prophylaxis. Code(s): K80.50 - CALCULUS OF BILE DUCT W/O CHOLANGITIS OR CHOLECYST W/O OBST (2) Abdominal pain, RUQ Code(s): R10.11 - RIGHT UPPER QUADRANT PAIN (3) Choledocholithiasis Code(s): K80.50 - CALCULUS OF BILE DUCT W/O CHOLANGITIS OR CHOLECYST W/O OBST (4) Rheumatoid arthritis Code(s): M06.9 - RHEUMATOID ARTHRITIS, UNSPECIFIED (5) Hx laparoscopic cholecystectomy Code(s): Z90.49 - ACQUIRED ABSENCE OF OTHER SPECIFIED PARTS OF DIGESTIVE TRACT (6) Cholestasis during Code(s): O26.619 - LIVER AND BILIARY TRACT DISORD IN , UNSP TRIMESTER; K83.1 - OBSTRUCTION OF BILE DUCT Assessment/Plan Assessment: - I believe that Davis's pain is either due to her residual stent or stone movement and both need to be removed before she develops cholangitis. Plan: -- I have obtained an informed consent for ERCP with stent and stone extraction after informing Davis of the potential for such complications as perforation, hemorrhage and ERCP induced pancreatitis which could lead to multiorgan failure. She has signed an informed consent and I will do the procedure tomorrow with antibiotic prophylaxis.
[2019-04-14] MEDS: URSODIOL 300 MG CAPSULE PO SCH (23:28)
[2019-04-14] MEDS: LACTATED RINGERS SOLUTION 1,000 ML/1,000 ML INFUS.BAG IV SCH (23:52)
[2019-04-15 02:32] VITALS: BMI 25.9
[2019-04-15] MEDS ORDERED: ceFAZolin 2 GRAM PREMIX BAG IVPB ONE (06:00)
[2019-04-15] MEDS: LACTATED RINGERS SOLUTION 1,000 ML/1,000 ML INFUS.BAG IV SCH (06:42)
[2019-04-15] MEDS ORDERED: INDOMETHACIN 50 MG RECTAL SUPPOSITORY PR ONE (07:00)
[2019-04-15 07:05] LABS: BASO % 0.5 % (0-2.0); EOS % 3.3 % (0-4.5); HEMATOCRIT 27.6 % (32.4-45.2); HEMOGLOBIN 9.2 GM/dL (10.7-15.3); LYMPH % 30.8 % (8-40); MCH 27.9 pg (25.7-33.7); MCHC 33.1 g/dl (32.0-36.0); MEAN CELL VOLUME 84.3 fl (80-96); MEAN PLT VOLUME 9.4 fl (7.5-11.1); NEUT % 56.4 % (42.8-82.8); PLATELET COUNT 219 K/MM3 (134-434); RBC 3.28 M/mm3 (3.60-5.2); RDW 15.5 % (11.6-15.6); RETICULOCYTES 1.77 % (0.5-1.5); WHITE BLOOD COUNT 5.5 K/mm3 (4.0-10.0)
[2019-04-15 07:16] LABS: INR 1.08 (0.83-1.09); PROTHROMBIN TIME (PATIENT) 12.8 SEC (9.7-13.0)
[2019-04-15] MEDS ORDERED: morphine CARPU-JECT 2 MG/1 ML DISP.SYRIN IVPUSH PRN (08:28)
[2019-04-15] MEDS ORDERED: MORPHINE SULFATE 2 MG IVPUSH PRN (10:18)
--- NOTE | 2019-04-15 10:22 | PN ---
Progress Note, Physician History of Present Illness: Patient is a 34 year old female with a significant past medical history of rheumatoid arthritis, cholangitis s/p cholecystectomy on 12/20/2018. She presents to the ED on 04/14/2019 with RUQ pain that she states is severe 05/31. Patient most recently admitted to [facility] on 12/2018 with RUQ abdominal pain. On the 12/20/2018 stay, she underwent underwent imaging of her abdomen with an MRCP which revealed a distended gallbladder with multiple large gallstones in addition to small stones within the cystic duct. Her AST/ALT were elevated on that admission and her bili was 2.0. She underwent an ERCP with Dr Schwab which showed 2 stones from the common bile duct. A third stone was unable to be obtained and a stent was placed by the GI. Patient was placed on IV antibiotics and on 12/20/2018 she had a cholecystectomy with Dr Love. patient was discharged on 12/21/2018 and was following up with Dr. Teresa. She presents today with RUQ pain. She had a planned ERCP last week but the procedure was not yet done. Patient is now having severe RUQ pain and returns to the ED for GI evaluation and pain control. She denies any fever/chils, n/v , dysuria, ferquncy, diarrhea, melena or chest pain. She is for an ERCP today with GI. Currently NPO - Current Medication List Current Medications: Active Medications Acetaminophen (Tylenol -) 650 mg PO Q6H PRN PRN Reason: PAIN LEVEL 1-5 Lactated Ringer's (Lactated Ringers Solution) 1,000 ml in 1,000 mls @ 150 mls/ hr IV ASDIR YEHUDA Last Admin: 04/15/19 06:42 Dose: 150 mls/hr Melatonin (Melatonin) 5 mg PO HS PRN PRN Reason: INSOMNIA Morphine Sulfate (Morphine Injection -) 1 mg IVPUSH Q4H PRN PRN Reason: PAIN LEVEL 7 - 10 Oxycodone HCl (Roxicodone -) 5 mg PO Q6H PRN PRN Reason: PAIN LEVEL 4 - 6 Oxycodone HCl (Roxicodone -) 10 mg PO Q6H PRN PRN Reason: PAIN LEVEL 7 - 10 Pantoprazole Sodium (Protonix -) 40 mg PO DAILY YEHUDA Ursodiol (Actigal -) 300 mg PO BID YHEUDA Last Admin: 04/14/19 23:28 Dose: 300 mg - Objective Vital Signs: Vital Signs Temperature 98.3 F 04/15/19 06:00 Pulse Rate 55 L 04/15/19 06:00 Respiratory Rate 18 04/15/19 06:00 Blood Pressure 90/46 L 04/15/19 06:00 O2 Sat by Pulse Oximetry (%) 98 04/14/19 19:17 Constitutional: Yes: Well Nourished, No Distress, Calm Eyes: Yes: WNL HENT: Yes: WNL Neck: Yes: WNL Cardiovascular: Yes: WNL Respiratory: Yes: WNL Gastrointestinal: Yes: WNL, Normal Bowel Sounds ...Rectal Exam: Yes: Deferred Labs: CBC, BMP 04/15/19 06:42 04/14/19 11:36 INR, PTT INR 1.08 (0.83-1.09) 04/15/19 06:42 Problem List - Problems (1) Abdominal pain, RUQ Assessment/Plan: possible ERCP. GI evaluation. pain management with morphine/tylenol/oxycodone zofran prn Code(s): R10.11 - RIGHT UPPER QUADRANT PAIN (2) Biliary colic Assessment/Plan: for ERCP Code(s): K80.50 - CALCULUS OF BILE DUCT W/O CHOLANGITIS OR CHOLECYST W/O OBST (3) Prophylactic measure Assessment/Plan: fen PO fluids daily cmp low cholesterol diet scds full code Code(s): Z29.9 - ENCOUNTER FOR PROPHYLACTIC MEASURES, UNSPECIFIED Visit type - Emergency Visit Emergency Visit: Yes ED Registration Date: 04/14/19 Care time: The patient presented to the Emergency Department on the above date and was hospitalized for further evaluation of their emergent condition. - New Patient This patient is new to me today: No - Critical Care Critical Care patient: No - Discharge Referral Referred to [facility] Med P.C.: No
[2019-04-15] MEDS ORDERED: MIDAZOLAM HCL 2 MG/2 ML SINGLE DOSE VIAL ONE (12:03)
[2019-04-15] MEDS ORDERED: IOHEXOL 180 MG/1 ML ML IJ ONE (12:23)
--- NOTE | 2019-04-15 13:44 | PN ---
Progress Note (short form) - Note Progress Note: GI Procedure NOte: Please see ERCP report. Two large stones were extracted but this caused bleeding at the extended sphincterotomy which was tamponaded by placing another stent. She will need to be observed overnight for rebleeding and possible pancreatitis. If neither recurs she can be discharged tomorrow. Dr Thaddeus Esquivel will be covering this weekend. Problem List - Problems (1) Biliary colic Code(s): K80.50 - CALCULUS OF BILE DUCT W/O CHOLANGITIS OR CHOLECYST W/O OBST (2) Abdominal pain, RUQ Code(s): R10.11 - RIGHT UPPER QUADRANT PAIN (3) Choledocholithiasis Code(s): K80.50 - CALCULUS OF BILE DUCT W/O CHOLANGITIS OR CHOLECYST W/O OBST (4) Rheumatoid arthritis Code(s): M06.9 - RHEUMATOID ARTHRITIS, UNSPECIFIED (5) Hx laparoscopic cholecystectomy Code(s): Z90.49 - ACQUIRED ABSENCE OF OTHER SPECIFIED PARTS OF DIGESTIVE TRACT (6) Cholestasis during Code(s): O26.619 - LIVER AND BILIARY TRACT DISORD IN , UNSP TRIMESTER; K83.1 - OBSTRUCTION OF BILE DUCT
[2019-04-15] MEDS ORDERED: LACTATED RINGERS SOLUTION 1,000 ML/1,000 ML INFUS.BAG IV SCH ×2 (13:45→20:45)
[2019-04-15] MEDS ORDERED: EPINEPHrine 1:10,000 (P-F SYR) 1 MG/10 ML DISP.SYRIN ONE (14:24)
[2019-04-15] MEDS: URSODIOL 300 MG CAPSULE PO SCH ×2 (14:35→21:57)
[2019-04-15] MEDS: PANTOPRAZOLE 40 MG TABLET (FP) PO SCH (14:35)
[2019-04-15] MEDS ORDERED: IRON SUCROSE INJECTION 300 MG in SODIUM CHLORIDE 235 ML IVPB ONE (15:00)
[2019-04-15 17:24] LABS: HEMATOCRIT 30.3 % (32.4-45.2); HEMOGLOBIN 10.1 GM/dL (10.7-15.3); MCHC 33.2 g/dl (32.0-36.0); MEAN CELL VOLUME 84.4 fl (80-96); MEAN PLT VOLUME 9.7 fl (7.5-11.1); PLATELET COUNT 227 K/MM3 (134-434); RBC 3.59 M/mm3 (3.60-5.2); RDW 15.4 % (11.6-15.6); WHITE BLOOD COUNT 10.1 K/mm3 (4.0-10.0)
[2019-04-15 18:04] LABS: ALBUMIN 3.2 g/dl (3.4-5.0); BILIRUBIN,TOTAL 0.5 mg/dL (0.2-1); BLOOD UREA NITROGEN 6.7 mg/dL (7-18); CALCIUM 7.9 mg/dL (8.5-10.1); CREATININE 0.6 mg/dL (0.55-1.3); POTASSIUM 3.8 mmol/L (3.5-5.1); TOT PROT 6.5 g/dl (6.4-8.2)
[2019-04-15 21:00] LABS: BASO % 0.1 % (0-2.0); EOS % 0.1 % (0-4.5); HEMATOCRIT 29.3 % (32.4-45.2); HEMOGLOBIN 9.7 GM/dL (10.7-15.3); LYMPH % 6.3 % (8-40); MCH 27.8 pg (25.7-33.7); MCHC 33.1 g/dl (32.0-36.0); MEAN PLT VOLUME 9.5 fl (7.5-11.1); MONO % 2.6 % (3.8-10.2); NEUT % 90.9 % (42.8-82.8); PLATELET COUNT 231 K/MM3 (134-434); RBC 3.48 M/mm3 (3.60-5.2); RDW 15.2 % (11.6-15.6); WHITE BLOOD COUNT 8.9 K/mm3 (4.0-10.0)
[2019-04-15] MEDS ORDERED: PT OWN MED DRAWER 7, Y5N ONE (21:52)
[2019-04-16] MEDS ORDERED: LACTATED RINGERS SOLUTION 1,000 ML/1,000 ML INFUS.BAG IV SCH ×2 (02:45→08:45)
[2019-04-16 07:04] LABS: BASO % 0.3 % (0-2.0); EOS % 0.8 % (0-4.5); HEMATOCRIT 26.8 % (32.4-45.2); LYMPH % 18.3 % (8-40); MCH 28.2 pg (25.7-33.7); MCHC 33.7 g/dl (32.0-36.0); MEAN CELL VOLUME 83.6 fl (80-96); MEAN PLT VOLUME 9.8 fl (7.5-11.1); MONO % 8.3 % (3.8-10.2); NEUT % 72.3 % (42.8-82.8); PLATELET COUNT 213 K/MM3 (134-434); RBC 3.21 M/mm3 (3.60-5.2); RDW 15.5 % (11.6-15.6)
[2019-04-16 07:42] LABS: ALBUMIN 2.6 g/dl (3.4-5.0); BILIRUBIN,DIRECT 0.1 mg/dL (0.0-0.2); BILIRUBIN,TOTAL 0.4 mg/dL (0.2-1); BLOOD UREA NITROGEN 4.8 mg/dL (7-18); CALCIUM 7.8 mg/dL (8.5-10.1); CREATININE 0.5 mg/dL (0.55-1.3); POTASSIUM 3.7 mmol/L (3.5-5.1); TOT PROT 5.5 g/dl (6.4-8.2)
--- NOTE | 2019-04-16 08:00 | PN ---
Progress Note (short form) - Note Progress Note: Pt hungry. Denies vomiting, abdominal pain. Lipase mildly elevated, amylase normal, today's CBC pending. LFTs normal, WBC normal last evening. CBCD WBC 8.9 K/mm3 (4.0-10.0) 04/15/19 20:10 RBC 3.48 M/mm3 (3.60-5.2) L 04/15/19 20:10 Hgb 9.7 GM/dL (10.7-15.3) L 04/15/19 20:10 Hct 29.3 % (32.4-45.2) L 04/15/19 20:10 MCV 84.0 fl (80-96) 04/15/19 20:10 MCHC 33.1 g/dl (32.0-36.0) 04/15/19 20:10 RDW 15.2 % (11.6-15.6) 04/15/19 20:10 Plt Count 231 K/MM3 (134-434) 04/15/19 20:10 MPV 9.5 fl (7.5-11.1) 04/15/19 20:10 CMP Sodium 143 mmol/L (136-145) 04/16/19 06:33 Potassium 3.7 mmol/L (3.5-5.1) 04/16/19 06:33 Chloride 112 mmol/L (98-107) H 04/16/19 06:33 Carbon Dioxide 24 mmol/L (21-32) 04/16/19 06:33 Anion Gap 7 MMOL/L (8-16) L 04/16/19 06:33 BUN 4.8 mg/dL (7-18) L 04/16/19 06:33 Creatinine 0.5 mg/dL (0.55-1.3) L 04/16/19 06:33 Random Glucose 82 mg/dL (74-106) 04/16/19 06:33 Calcium 7.8 mg/dL (8.5-10.1) L 04/16/19 06:33 Total Bilirubin 0.4 mg/dL (0.2-1) 04/16/19 06:33 AST 51 U/L (15-37) H 04/16/19 06:33 ALT 61 U/L (13-61) 07/27/19 06:33 Alkaline Phosphatase 77 U/L (45-117) 04/16/19 06:33 Total Protein 5.5 g/dl (6.4-8.2) L 04/16/19 06:33 Albumin 2.6 g/dl (3.4-5.0) L 04/16/19 06:33 Impression: Post-ERCP, no signficant adverse effects. To begin regular diet. If tolerated suggest discharge with outpatient follow-up.
[2019-04-16] MEDS ORDERED: PT OWN MED DRAWER 7, Y5N ONE (09:47)
[2019-04-16] MEDS ORDERED: IRON SUCROSE INJECTION 300 MG in SODIUM CHLORIDE 235 ML IVPB ONE (09:52)
[2019-04-16] MEDS: PANTOPRAZOLE 40 MG TABLET (FP) PO SCH (10:05)
[2019-04-16] MEDS: URSODIOL 300 MG CAPSULE PO SCH (10:05)
[2019-04-16 12:40] VITALS: BP 101/62; PULSE 68; TEMP 98.7
--- NOTE | 2019-04-16 13:35 | DS ---
Physical Exam: SUBJECTIVE: Patient seen and examined at the bedside. eating well, denies any nausea or vomiting. mild abdominal pain relieved with Tylenol. OBJECTIVE: Pt hungry and tolerated regular diet. Denies vomiting, no abdominal pain. Lipase mildly elevated, amylase normal, cbc 06/16 . LFTs normal, WBC normal will receive another dose of venofer prior to discharge home Vital Signs Period Temp Pulse Resp BP Sys/Mcgregor Pulse Ox Last 24 Hr 98.1 F-98.7 F 55-68 15-20 101-127/62-89 96-98 PHYSICAL EXAM GENERAL: The patient is awake, alert, and fully oriented, in no acute distress. HEAD: Normal with no signs of trauma. EYES: PERRL, extraocular movements intact, sclera anicteric, conjunctiva clear. ENT: Ears normal, nares patent, oropharynx clear without exudates, moist mucous membranes. NECK: Trachea midline, full range of motion, supple. LUNGS: Breath sounds equal, clear to auscultation bilaterally, no wheezes, no crackles, no accessory muscle use. HEART: Regular rate and rhythm, S1, S2 without murmur, rub or gallop. ABDOMEN: Soft, nontender, nondistended, EXTREMITIES: no edema. NEUROLOGICAL: Cranial nerves II through XII grossly intact. Normal speech, gait not observed. PSYCH: Normal mood, normal affect. SKIN: Warm, dry, normal turgor, no rashes or lesions noted. LABS Laboratory Results - last 24 hr 04/15/19 04/15/19 04/15/19 16:35 16:35 16:35 WBC 10.1 H RBC 3.59 L Hgb 10.1 L Hct 30.3 L MCV 84.4 MCH 28.0 MCHC 33.2 RDW 15.4 Plt Count 227 MPV 9.7 Absolute Neuts (auto) Neutrophils % Lymphocytes % Monocytes % Eosinophils % Basophils % Nucleated RBC % Sodium 141 Potassium 3.8 Chloride 111 H Carbon Dioxide 24 Anion Gap 7 L BUN 6.7 L Creatinine 0.6 Est GFR (CKD-EPI)AfAm 139.78 Est GFR (CKD-EPI)NonAf 120.61 Random Glucose 97 Calcium 7.9 L Magnesium 2.3 Total Bilirubin 0.5 Direct Bilirubin AST 48 H ALT 48 Alkaline Phosphatase 82 C-Reactive Protein Total Protein 6.5 Albumin 3.2 L Total Amylase Lipase 04/15/19 04/16/19 04/16/19 20:10 06:33 06:33 WBC 8.9 9.0 RBC 3.48 L 3.21 L Hgb 9.7 L 9.0 L Hct 29.3 L 26.8 L MCV 84.0 83.6 MCH 27.8 28.2 MCHC 33.1 33.7 RDW 15.2 15.5 Plt Count 231 213 MPV 9.5 9.8 Absolute Neuts (auto) 8.1 H 6.5 Neutrophils % 90.9 H 72.3 D Lymphocytes % 6.3 L D 18.3 D Monocytes % 2.6 L 8.3 D Eosinophils % 0.1 D 0.8 D Basophils % 0.1 0.3 Nucleated RBC % 0 0 Sodium 143 Potassium 3.7 Chloride 112 H Carbon Dioxide 24 Anion Gap 7 L BUN 4.8 L Creatinine 0.5 L Est GFR (CKD-EPI)AfAm 148.42 Est GFR (CKD-EPI)NonAf 128.06 Random Glucose 82 Calcium 7.8 L Magnesium Total Bilirubin 0.4 Direct Bilirubin 0.1 AST 51 H ALT 61 Alkaline Phosphatase 77 C-Reactive Protein 0.5 H Total Protein 5.5 L Albumin 2.6 L Total Amylase 114 Lipase 687 H HOSPITAL COURSE: Date of Admission:04/14/19 Date of Discharge: 04/16/19 Patient is a 34 year old female with a significant past medical history of rheumatoid arthritis, cholangitis s/p cholecystectomy on 12/20/2018. She presents to the ED on 04/14/2019 with RUQ pain that she states is severe 10. Patient most recently admitted to [facility] on 12/2018 with RUQ abdominal pain. On the 12/20/2018 stay, she underwent underwent imaging of her abdomen with an MRCP which revealed a distended gallbladder with multiple large gallstones in addition to small stones within the cystic duct. Her AST/ALT were elevated on that admission and her bili was 2.0. She underwent an ERCP with Dr Schwab which showed 2 stones from the common bile duct. A third stone was unable to be obtained and a stent was placed by the GI. Patient was placed on IV antibiotics and on 12/20/2018 she had a cholecystectomy with Dr Love. patient was discharged on 12/21/2018 and was following up with Dr. Teresa. She presents today with RUQ pain. She had a planned ERCP last week but the procedure was not yet done. Patient is now having severe RUQ pain and returns to the ED for GI evaluation and pain control. She denies any fever/chils, n/v , dysuria, frequency, diarrhea, melena or chest pain. She is s/p ERCP on 04/15/2019. patient cleared for discharge home today by GI. She has received 2 doses of Venofer during her hospital stay. Outpatient GI follow up with Dr. Schwab for a repeat ERCP in 3 months for stent removal. Minutes to complete discharge: 60 Discharge Summary Reason For Visit: RIGHT UPPER QUADRANT ABD PAIN Current Active Problems Abdominal pain, RUQ (Acute) Hx laparoscopic cholecystectomy (Acute) Prophylactic measure (Acute) Rheumatoid arthritis (Acute) Condition: Stable - Instructions Diet, Activity, Other Instructions: Mrs Thompson: You were admitted for abdominal pain and you had an ERCP on 04/16/2019. If you continue to have any pain or discomfort, please take Tylenol every 6 hours. Do not take any Motrin, Ibuprophen, Advil or aspirin. Please follow up with Dr. Schwab by calling his office on Thursday to make an appointment. Medications: Continue all the medications as outlined in your discharge instructions. Follow ups: Please follow up with your PCP and Dr. Schwab. You will need a repeat ERCP in 3 months for stent removal. Thank you for allow us to care for you. Referrals: Emperatriz Schwab MD [Staff Physician] - Disposition: HOME - Home Medications Comprehensive Discharge Medication List: Ambulatory Orders Ursodiol [Actigall] 300 mg PO BID #60 capsule 12/21/18 Cimza 220 mg SQ .Q2WEEK 03/31/19 Pantoprazole Sodium [Protonix -] 40 mg PO DAILY #60 tablet.ec 04/16/19 Ursodiol [Actigal] 300 mg PO BID #60 capsule 04/16/19 Problem List - Problems (1) Abdominal pain, RUQ Assessment/Plan: resolved. s/p ercp. tolerated advance diet. no nausea or vomiting. Code(s): R10.11 - RIGHT UPPER QUADRANT PAIN (2) Biliary colic Assessment/Plan: resolved. Code(s): K80.50 - CALCULUS OF BILE DUCT W/O CHOLANGITIS OR CHOLECYST W/O OBST (3) Iron deficiency anemia Assessment/Plan: received 2 doses of venofer daily during hospitalization hmg/hct low but stable repeat labs as an outpatient Code(s): D50.9 - IRON DEFICIENCY ANEMIA, UNSPECIFIED (4) Prophylactic measure Assessment/Plan: Code(s): Z29.9 - ENCOUNTER FOR PROPHYLACTIC MEASURES, UNSPECIFIED This patient is new to me today: No Emergency Visit: Yes ED Registration Date: 04/14/19 Care time: The patient presented to the Emergency Department on the above date and was hospitalized for further evaluation of their emergent condition. Critical Care patient: No - Discharge Referral Referred to [facility] No
== END 2019-04-16 15:20 | disposition home or self-care (01) | DRG 261 ==
LOC: JER 10:35 → JERBED 13:59 → J8W 20:08
PROVIDERS: ADMIT Internal Medicine; ATTEND Nurse Practitioner Family
PROC: 0F798DZ Dilation of Common Bile Duct with Intraluminal Device, Via Natural or Artificial Opening Endoscopic (ICD-10-PCS; 2019-04-15)
PROC: 0FPB8DZ Removal of Intraluminal Device from Hepatobiliary Duct, Via Natural or Artificial Opening Endoscopic (ICD-10-PCS; 2019-04-15)
PROC: 0FC98ZZ Extirpation of Matter from Common Bile Duct, Via Natural or Artificial Opening Endoscopic (ICD-10-PCS; principal; 2019-04-15 11:00)
DX: K80.50 Calculus of bile duct without cholangitis or cholecystitis without obstruction (principal); R10.11 Right upper quadrant pain; M06.9 Rheumatoid arthritis, unspecified; Z90.49 Acquired absence of other specified parts of digestive tract
CPT/HCPCS: 36415; 74018-TC-FY; 76000-TC-FY; 76705-TC; 80053; 81003; 82150; 82248; 82728; 83540; 83550; 83615; 83690; 83735; 84703; 85025; 85027; 85044; 85610; 86140; 88300-TC; 99284-25; J0131; J1756; J7030

== ENCOUNTER 2019-04-21 12:07 | Inpatient (IN) | payer OTHER ==
--- NOTE | 2019-04-21 12:12 | PDOC ---
Rapid Medical Evaluation Time Seen by Provider: 04/21/19 12:10 Medical Evaluation: Allergies Allergy/AdvReac Type Severity Reaction Status Date / Time No Known Allergies Allergy Verified 04/07/19 22:29 04/21/19 12:11 I have performed a brief in-person evaluation of this patient. The patient presents with a chief complaint of: RUQ abdominal pain for 2 days which feels like her gallstones Pertinent physical exam findings: RUQ abdominal tenderness I have ordered the following: CBC, CMP, lipase, UA, UCG, UCx, RUQ sono The patient will proceed to the ED for further evaluation. Discharge Disposition - Diagnosis Abdominal pain Qualifiers: Abdominal location: right upper quadrant Qualified Code(s): R10.11 - Right upper quadrant pain - Referrals - Patient Instructions - Post Discharge Activity
[2019-04-21] MEDS ORDERED: HYDROmorphone HCL CARPU-JECT 2 MG/1 ML DISP.SYRIN IVPUSH ONE (12:37)
[2019-04-21 12:52] LABS: BASO % 0.6 % (0-2.0); EOS % 1.8 % (0-4.5); HEMATOCRIT 32.6 % (32.4-45.2); HEMOGLOBIN 10.9 GM/dL (10.7-15.3); LYMPH % 23.9 % (8-40); MCH 28.1 pg (25.7-33.7); MCHC 33.4 g/dl (32.0-36.0); MEAN CELL VOLUME 84.1 fl (80-96); MEAN PLT VOLUME 9.3 fl (7.5-11.1); MONO % 6.8 % (3.8-10.2); NEUT % 66.9 % (42.8-82.8); PLATELET COUNT 240 K/MM3 (134-434); RBC 3.88 M/mm3 (3.60-5.2); RDW 16.5 % (11.6-15.6); WHITE BLOOD COUNT 6.7 K/mm3 (4.0-10.0)
[2019-04-21 13:05] LABS: INR 1.04 (0.83-1.09); PROTHROMBIN TIME (PATIENT) 12.3 SEC (9.7-13.0)
--- NOTE | 2019-04-21 13:09 | PDOC ---
History of Present Illness - General Chief Complaint: Pain, Acute Stated Complaint: ABD. PAIN Time Seen by Provider: 04/21/19 12:10 History Source: Patient Exam Limitations: No Limitations - History of Present Illness Initial Comments: 04/21/19 13:08 CHIEF COMPLAINT: Abdominal pain HISTORY OF PRESENT ILLNESS: This is a 34-year-old female with a history of rheumatoid arthritis on certolizumab (LD 04/18), cholecystitis s/p laproscopic cholecystectomy 12/20/18 and choledocholithiasis s/p ERCP and stent on 11/18/18 and again on 04/14/19 with placement of a second stent. The patient was discharged from this hospital on 04/16, but returns today with 2 days of worsening RUQ pain. She denies nausea/vomiting and fevers/chills. She has had about 3 episodes of diarrhea daily. She has not taken any analgesia. She has been eating well. Vital signs on arrival are unremarkable. REVIEW OF SYSTEMS: GENERAL/CONSTITUTIONAL: No fever or chills. No weakness. No weight change. HEAD, EYES, EARS, NOSE AND THROAT: No change in vision. No ear pain or discharge. No sore throat. CARDIOVASCULAR: No chest pain or palpitations. RESPIRATORY: No cough, wheezing, or shortness of breath. GASTROINTESTINAL: See HPI. GENITOURINARY: No dysuria, frequency, or change in urination. MUSCULOSKELETAL: No joint or muscle swelling or pain. No neck or back pain. SKIN: Left forearm swelling at IV site from previous hospitalization, has been applying ice. NEUROLOGIC: No headache, vertigo, loss of consciousness, or loss of sensation. PSYCHIATRIC: No depression or anxiety. ENDOCRINE: No increased thirst. No abnormal weight change. HEMATOLOGIC/LYMPHATIC: No anemia, easy bleeding, or history of blood clots. ALLERGIC/IMMUNOLOGIC: No hives or skin allergy. No latex allergy. PHYSICAL EXAM: GENERAL: The patient is awake, alert, and fully oriented, in no acute distress. HEAD: Normal with no signs of trauma. ENT: Pupils equal, round and reactive to light, extraocular movements intact, sclera anicteric, conjunctiva clear. Neck supple. LUNGS: Clear to auscultation bilaterally. Normal excursion. No respiratory distress or use of accessory muscles. CV: RRR, S1/S2, no MRG. Cap refill < 2 sec. ABDOMEN: Soft, non-distended, RUQ tenderness to gentle palpation. EXTREMITIES: Normal range of motion. Mild induration and tenderness at left AC previous IV site, minimal erythema, no warmth. NEUROLOGICAL: Normal speech, normal gait. CN II-XII grossly intact. PSYCH: Normal mood, normal affect. SKIN: Warm, dry, normal turgor, no rashes or lesions noted. Past History - Past Medical History Allergies/Adverse Reactions: Allergies Allergy/AdvReac Type Severity Reaction Status Date / Time No Known Allergies Allergy Verified 04/21/19 12:12 Home Medications: Ambulatory Orders Ursodiol [Actigall] 300 mg PO BID #60 capsule 12/21/18 Cimza 220 mg SQ .Q2WEEK 03/31/19 Pantoprazole Sodium [Protonix -] 40 mg PO DAILY #60 tablet.ec 04/16/19 Ursodiol [Actigal] 300 mg PO BID #60 capsule 04/16/19 Asthma: No Cancer: No Cardiac Disorders: No COPD: No Diabetes: No HTN: No Liver Disease: Yes (NAFLD) Seizures: No Thyroid Disease: No Other medical history: RA - Surgical History Cholecystectomy: Yes (LAPAROSCOPIC) - Reproductive History (#): 2 Para: 2 - Immunization History Immunization Up to Date: No - Suicide/Smoking/Psychosocial Hx Smoking History: Never smoked Have you smoked in the past 12 months: No Hx Alcohol Use: No Drug/Substance Use Hx: No Substance Use Type: None Hx Substance Use Treatment: No *Physical Exam - Vital Signs Last Vital Signs Temp Pulse Resp BP Pulse Ox 98.2 F 75 18 108/68 98 04/21/19 12:09 04/21/19 12:09 04/21/19 12:09 04/21/19 12:09 04/21/19 12:09 ED Treatment Course - LABORATORY CBC & Chemistry Diagram: 04/21/19 12:30 04/21/19 12:30 - ADDITIONAL ORDERS Additional order review: Laboratory Results 04/21/19 12:30 PT with INR 12.30 INR 1.04 04/21/19 12:30 RBC 3.88 MCV 84.1 MCHC 33.4 RDW 16.5 H MPV 9.3 Neutrophils % 66.9 Lymphocytes % 23.9 D Monocytes % 6.8 Eosinophils % 1.8 D Basophils % 0.6 Medical Decision Making - Medical Decision Making 04/21/19 13:24 A/P: 34-year-old female with choledocholithiasis and ERCP/stents x 2, recently dc from hospital and presenting with RUQ pain. 1. Labs including CBC, CMP, lipase, UA/hcg 2. Hydromorphone 0.5mg IVP for pain 3. Discuss with GI 04/21/19 13:26 WBC within normal limits at 6.7 04/21/19 14:41 WBC, lipase, LFTs within normal limits Urine positive - serum sent (pt reports LMP one week ago and no sexual activity since) Discussed with Dr. Schwab 04/21/19 16:09 Serum bhcg neg KUB obtained and reviewed with radiologist - stent likely migrated lower down but still within bile duct Message left with Dr. Schwab's office *DC/Admit/Observation/Transfer Diagnosis at time of Disposition: Abdominal pain Qualifiers: Abdominal location: right upper quadrant Qualified Code(s): R10.11 - Right upper quadrant pain - Discharge Dispostion Condition at time of disposition: Guarded Decision to Admit order: Yes - Referrals - Patient Instructions - Post Discharge Activity
[2019-04-21] MEDS ORDERED: HYDROmorphone HCl 2 MG/ML VIAL ONE (13:20)
[2019-04-21 13:28] LABS: EPI CELLS 1.2 /HPF (0-5/HPF); HYALINE CASTS 0 /lpf (0-8); URINE APPEARANCE CLEAR; URINE BACTERIA 97.9 /hpf (NEGATIVE); URINE BILIRUBIN NEGATIVE (NEGATIVE); URINE COLOR YELLOW; URINE GLUCOSE (UA) NEGATIVE (NEGATIVE); URINE KETONE NEGATIVE (NEGATIVE); URINE LEUK ESTERASE TRACE (NEGATIVE); URINE NITRITE NEGATIVE (NEGATIVE); URINE PROTEIN NEGATIVE (NEGATIVE); URINE RBC 1 /hpf (0-4); URINE UROBILINOGEN 0.2 mg/dL (0.2-1.0); URINE WBC 3 /hpf (0-5)
[2019-04-21 13:38] LABS: ALBUMIN 3.6 g/dl (3.4-5.0); ALK PHOS 93 U/L (45-117); ANION GAP 8 MMOL/L (8-16); BILIRUBIN,TOTAL 0.2 mg/dL (0.2-1); BLOOD UREA NITROGEN 17.2 mg/dL (7-18); CALCIUM 8.7 mg/dL (8.5-10.1); CHLORIDE 108 mmol/L (98-107); CO2 26 mmol/L (21-32); CREATININE 0.6 mg/dL (0.55-1.3); GLUCOSE,RANDOM 80 mg/dL (74-106); LIPASE 197 U/L (73-393); POTASSIUM 4.2 mmol/L (3.5-5.1); SGOT/AST 21 U/L (15-37); SGPT/ALT 44 U/L (13-61); SODIUM 141 mmol/L (136-145); TOT PROT 7.5 g/dl (6.4-8.2)
[2019-04-21] MEDS ORDERED: SODIUM CHLORIDE 1,000 ML IV STA (14:25)
[2019-04-21] MEDS ORDERED: HYDROmorphone HCl 2 MG/ML VIAL IVPUSH PRN (17:12)
[2019-04-21] MEDS ORDERED: SODIUM CHLORIDE 1,000 ML IV SCH (17:15)
--- NOTE | 2019-04-21 17:48 | HP ---
Admitting History and Physical - Admission Chief Complaint: RUQ pain x 2 days History of Present Illness: 34-year-old female with a history of RA on certolizumab (LD 04/18), cholecystitis s/p laproscopic cholecystectomy 12/20/18 and choledocholithiasis s/ p ERCP and stent on 11/18/18 and again on 04/14/19 with placement of a second stent. The patient was discharged from this hospital on 04/16, but returned to ED today with 2 days of worsening RUQ pain. She denies nausea/vomiting and fevers/chills. She has had about 3 episodes of diarrhea daily. She has not taken any analgesia. Last meal was at 10:30am. History Source: Patient Limitations to Obtaining History: No Limitations - Past Medical History Gastrointestinal: Yes: Other ([place]) Hepatobiliary: Yes: Cholelithiasis, Other (ERCP placed stent 11/18 & 04/14. During last placement 2 large stones were extracted causeing bleeding at the extended sphincterotomy which was tamponaded by placing another stent.) ...LMP: 03/16/19 ...: No ...: 2 ...Para: 2 Rheumatology: Yes: Rheumatoid Arthritis (on certolizumab last dose 04/18) - Past Surgical History Past Surgical History: Yes: Cholecystectomy (lap daniela 01/07), (x2) - Smoking History Smoking history: Never smoked Have you smoked in the past 12 months: No - Alcohol/Substance Use Hx Alcohol Use: No History of Substance Use: reports: None - Social History Usual Living Arrangement: Yes: With Child ADL: Independent Occupation: former restaurant hospitality manager History of Recent Travel: No Home Medications - Allergies Allergies/Adverse Reactions: Allergies Allergy/AdvReac Type Severity Reaction Status Date / Time No Known Allergies Allergy Verified 04/21/19 12:12 - Home Medications Home Medications: Ambulatory Orders Ursodiol [Actigall] 300 mg PO BID #60 capsule 12/21/18 Cimza 220 mg SQ .Q2WEEK 03/31/19 Pantoprazole Sodium [Protonix -] 40 mg PO DAILY #60 tablet.ec 04/16/19 Ursodiol [Actigal] 300 mg PO BID #60 capsule 04/16/19 Family Disease History - Family Disease History Family Disease History: Other: Father ( 68 of ETOH cirrhosis), Sister ( Rheumatoid arthritis) Review of Systems - Review of Systems Constitutional: reports: No Symptoms Eyes: reports: No Symptoms HENT: reports: No Symptoms Neck: reports: No Symptoms Cardiovascular: reports: No Symptoms Respiratory: reports: No Symptoms Gastrointestinal: reports: Abdominal Pain (RUQ), Diarrhea (x 2 days) Genitourinary: reports: No Symptoms Breasts: reports: No Symptoms Reported Musculoskeletal: reports: No Symptoms Integumentary: reports: No Symptoms Neurological: reports: No Symptoms Endocrine: reports: No Symptoms Hematology/Lymphatic: reports: No Symptoms Psychiatric: reports: No Symptoms Physical Examination Vital Signs: Vital Signs Temperature 98.2 F 04/21/19 12:09 Pulse Rate 75 04/21/19 12:09 Respiratory Rate 18 04/21/19 12:09 Blood Pressure 108/68 04/21/19 12:09 O2 Sat by Pulse Oximetry (%) 98 04/21/19 12:09 Constitutional: Yes: Well Nourished, No Distress, Calm Eyes: Yes: WNL, Conjunctiva Clear, EOM Intact HENT: Yes: WNL, Atraumatic, Normocephalic Neck: Yes: WNL, Supple, Trachea Midline Cardiovascular: Yes: WNL, Regular Rate and Rhythm Respiratory: Yes: WNL, Regular, CTA Bilaterally Gastrointestinal: Yes: Soft, Tenderness (RUQ,) ...Rectal Exam: Yes: Deferred Renal/: Yes: WNL Breast(s): Yes: WNL Musculoskeletal: Yes: WNL Extremities: Yes: WNL Edema: No Peripheral Pulses WNL: Yes Integumentary: Yes: Other (C scetion scar noted) Neurological: Yes: WNL, Alert, Oriented ...Motor Strength: WNL Psychiatric: Yes: WNL, Alert, Oriented Labs: CBC, BMP 04/21/19 12:30 04/21/19 12:30 Imaging - Results X-ray: Report Reviewed (KUB: biliary stent seen-migrated lower since last image but remain in duct) Problem List - Problems (1) Abdominal pain, RUQ Assessment/Plan: choledocholithiasis and ERCP/stents x [address] Schwab plan to see tonight and for ERCP tomorrow keep NPO IVF NS @ 100CC/HR Dilaudid .5mg IVP q 4 hr prn Code(s): R10.11 - RIGHT UPPER QUADRANT PAIN (2) Choledocholithiasis Assessment/Plan: plan for ERCP in am with Dr Schwab Code(s): K80.50 - CALCULUS OF BILE DUCT W/O CHOLANGITIS OR CHOLECYST W/O OBST (3) Prophylactic measure Assessment/Plan: FEN NPO monitor electrolytes IVF NS @ 100cc/hr DVT heparin sq Dispo admit to med surg for planned ERCP full code discharge planning Code(s): Z29.9 - ENCOUNTER FOR PROPHYLACTIC MEASURES, UNSPECIFIED (4) Rheumatoid arthritis Assessment/Plan: c/w certoplizumab last dose 04/18 Code(s): M06.9 - RHEUMATOID ARTHRITIS, UNSPECIFIED Visit type - Emergency Visit Emergency Visit: Yes ED Registration Date: 04/21/19 Care time: The patient presented to the Emergency Department on the above date and was hospitalized for further evaluation of their emergent condition. - New Patient This patient is new to me today: Yes Date on this admission: 04/21/19 - Critical Care Critical Care patient: No
[2019-04-21 18:14] LABS: BASO % 0.2 % (0-2.0); EOS % 0.3 % (0-4.5); HEMATOCRIT 33.1 % (32.4-45.2); HEMOGLOBIN 10.9 GM/dL (10.7-15.3); LYMPH % 9.5 % (8-40); MCH 28.2 pg (25.7-33.7); MEAN CELL VOLUME 85.5 fl (80-96); MEAN PLT VOLUME 9.5 fl (7.5-11.1); MONO % 4.2 % (3.8-10.2); NEUT % 85.8 % (42.8-82.8); PLATELET COUNT 234 K/MM3 (134-434); RBC 3.87 M/mm3 (3.60-5.2); RDW 16.6 % (11.6-15.6); WHITE BLOOD COUNT 10.7 K/mm3 (4.0-10.0)
[2019-04-21 18:31] LABS: ALBUMIN 3.7 g/dl (3.4-5.0); BILIRUBIN,TOTAL 0.1 mg/dL (0.2-1); BLOOD UREA NITROGEN 15.1 mg/dL (7-18); CALCIUM 8.4 mg/dL (8.5-10.1); CREATININE 0.6 mg/dL (0.55-1.3); MAGNESIUM 2.6 mg/dL (1.8-2.4); POTASSIUM 4.1 mmol/L (3.5-5.1); TOT PROT 7.1 g/dl (6.4-8.2)
[2019-04-21 21:05] VITALS: BMI 23.8
--- NOTE | 2019-04-21 21:37 | CON.GI ---
Consult Consult Specialty:: Gastroenterology Referred by:: Iman Pierre NP Reason for Consultation:: Abdominal pain - History of Present Illness Chief Complaint: RUQ pain x 3 days History of Present Illness: 34F underwent ERCP with large stone extraction on 04/15/19 which caused her extended sphincterotomy to bleed. I had to reinsert a stent for tamponade on the bleeding site. I believe that her pain reflects stent migration or residual stones. Please see recent consultation note. - History Source History Provided By: Patient Limitations to Obtaining History: Language Barrier - Past Medical History Gastrointestinal: Yes: Other ([place]) Hepatobiliary: Yes: Cholelithiasis, Choledocholithiasis, Other (ERCP placed stent 11/18 & 04/14. During last placement 2 large stones were extracted causeing bleeding at the extended sphincterotomy which was tamponaded by placing another stent. NAFLD) ...LMP: 03/16/19 ...: No Rheumatology: Yes: Rheumatoid Arthritis (on certolizumab last dose 04/18) - Past Surgical History Past Surgical History: Yes: Cholecystectomy (lap daniela 01/07), (x2) - Alcohol/Substance Use Hx Alcohol Use: No History of Substance Use: reports: None - Smoking History Smoking history: Never smoked Have you smoked in the past 12 months: No - Social History Usual Living Arrangement: With Significant Other ADL: Independent Occupation: former park worker supervisor Place of : Other ([place]) Came to [place] (year): age 18 History of Recent Travel: No Home Medications - Allergies Allergies/Adverse Reactions: Allergies Allergy/AdvReac Type Severity Reaction Status Date / Time No Known Allergies Allergy Verified 04/21/19 12:12 - Home Medications Home Medications: Ambulatory Orders Ursodiol [Actigall] 300 mg PO BID #60 capsule 12/21/18 Cimza 220 mg SQ .Q2WEEK 03/31/19 Pantoprazole Sodium [Protonix -] 40 mg PO DAILY #60 tablet.ec 04/16/19 Ursodiol [Actigal] 300 mg PO BID #60 capsule 04/16/19 Family Disease History - Family Disease History Family Disease History: Other: Father ( 68 of ETOH cirrhosis), Sister ( Rheumatoid arthritis) Review of Systems - Review of Systems Constitutional: reports: No Symptoms Eyes: reports: No Symptoms HENT: reports: No Symptoms Neck: reports: No Symptoms Cardiovascular: reports: No Symptoms Respiratory: reports: No Symptoms Gastrointestinal: reports: Abdominal Pain Physical Exam-GI Vital Signs: Vital Signs Temperature 99 F 04/21/19 19:13 Pulse Rate 67 04/21/19 19:13 Respiratory Rate 20 04/21/19 19:13 Blood Pressure 147/67 04/21/19 19:13 O2 Sat by Pulse Oximetry (%) 99 04/21/19 18:38 CBC,CMP WBC 10.7 K/mm3 (4.0-10.0) H 04/21/19 17:36 RBC 3.87 M/mm3 (3.60-5.2) 04/21/19 17:36 Hgb 10.9 GM/dL (10.7-15.3) 04/21/19 17:36 Hct 33.1 % (32.4-45.2) 04/21/19 17:36 MCV 85.5 fl (80-96) 04/21/19 17:36 MCH 28.2 pg (25.7-33.7) 04/21/19 17:36 MCHC 33.0 g/dl (32.0-36.0) 04/21/19 17:36 RDW 16.6 % (11.6-15.6) H 04/21/19 17:36 Plt Count 234 K/MM3 (134-434) 04/21/19 17:36 MPV 9.5 fl (7.5-11.1) 04/21/19 17:36 Absolute Neuts (auto) 9.2 K/mm3 (1.5-8.0) H 04/21/19 17:36 Neutrophils % 85.8 % (42.8-82.8) H D 04/21/19 17:36 Lymphocytes % 9.5 % (8-40) D 04/21/19 17:36 Monocytes % 4.2 % (3.8-10.2) 04/21/19 17:36 Eosinophils % 0.3 % (0-4.5) D 04/21/19 17:36 Basophils % 0.2 % (0-2.0) 04/21/19 17:36 Nucleated RBC % 0 % (0-0) 04/21/19 17:36 Sodium 139 mmol/L (136-145) 04/21/19 17:36 Potassium 4.1 mmol/L (3.5-5.1) 04/21/19 17:36 Chloride 107 mmol/L (98-107) 04/21/19 17:36 Carbon Dioxide 27 mmol/L (21-32) 04/21/19 17:36 Anion Gap 6 MMOL/L (8-16) L 04/21/19 17:36 BUN 15.1 mg/dL (7-18) 04/21/19 17:36 Creatinine 0.6 mg/dL (0.55-1.3) 04/21/19 17:36 Est GFR (CKD-EPI)AfAm 139.78 04/21/19 17:36 Est GFR (CKD-EPI)NonAf 120.61 04/21/19 17:36 Random Glucose 98 mg/dL (74-106) 04/21/19 17:36 Calcium 8.4 mg/dL (8.5-10.1) L 04/21/19 17:36 Magnesium 2.6 mg/dL (1.8-2.4) H 04/21/19 17:36 Total Bilirubin 0.1 mg/dL (0.2-1) L 04/21/19 17:36 AST 15 U/L (15-37) 04/21/19 17:36 ALT 42 U/L (13-61) 04/21/19 17:36 Alkaline Phosphatase 84 U/L (45-117) 04/21/19 17:36 Total Protein 7.1 g/dl (6.4-8.2) 04/21/19 17:36 Albumin 3.7 g/dl (3.4-5.0) 04/21/19 17:36 Lipase 197 U/L (73-393) 04/21/19 12:30 Beta HCG, Quant < 1.0 mIU/ml 04/21/19 14:20 Current Medications Generic Name Dose Route Start Last Admin Trade Name Freq PRN Reason Stop Dose Admin Hydromorphone HCl 0.5 mg 04/21/19 17:12 Dilaudid Vial - IVPUSH Q4H PRN PAIN LEVEL 6-10 Sodium Chloride 1,000 mls @ 100 mls/hr 04/21/19 17:15 04/21/19 17:29 Normal Saline - IV 100 mls/hr ASDIR YEHUDA Administration Constitutional: Yes: Calm Eyes: Yes: Conjunctiva Clear HENT: Yes: Atraumatic Neck: Yes: Supple Cardiovascular: Yes: Regular Rate and Rhythm Respiratory: Yes: CTA Bilaterally Gastrointestinal Inspection: Yes: Scars (healed laparoscopic and Pfannensteil incisions) ...Auscultate: Yes: Hypoactive Bowel Sounds ...Palpate: Yes: Soft, Tenderness (RUQ tenderness but no peritoneal signs) ...Rectal Exam: Yes: Deferred Labs: CBC, BMP 04/21/19 17:36 04/21/19 17:36 INR, PTT INR 1.04 (0.83-1.09) 04/21/19 12:30 Imaging - Results X-ray: Image Reviewed (stent in RUQ) Problem List - Problems (1) Bleeding from sphincterotomy site Code(s): K91.841 - POSTPROC HEMOR OF A DGSTV SYS ORG FOLLOWING OTHER PROCEDURE (2) Abdominal pain, RUQ Code(s): R10.11 - RIGHT UPPER QUADRANT PAIN (3) Biliary colic Code(s): K80.50 - CALCULUS OF BILE DUCT W/O CHOLANGITIS OR CHOLECYST W/O OBST (4) Choledocholithiasis Code(s): K80.50 - CALCULUS OF BILE DUCT W/O CHOLANGITIS OR CHOLECYST W/O OBST (5) Cholestasis during Code(s): O26.619 - LIVER AND BILIARY TRACT DISORD IN , UNSP TRIMESTER; K83.1 - OBSTRUCTION OF BILE DUCT (6) Hx laparoscopic cholecystectomy Code(s): Z90.49 - ACQUIRED ABSENCE OF OTHER SPECIFIED PARTS OF DIGESTIVE TRACT (7) Rheumatoid arthritis Code(s): M06.9 - RHEUMATOID ARTHRITIS, UNSPECIFIED Assessment/Plan Impression: - Biliary colic due to residual stone or the stent - Postsphincteortomy bleeding has resolved Plan: -- ERCP tomorrow to remove stent and residual stones
[2019-04-21] MEDS ORDERED: LACTATED RINGERS SOLUTION 1,000 ML/1,000 ML INFUS.BAG IV SCH (21:45)
[2019-04-22] MEDS ORDERED: CEFAZOLIN 1 GM in DEXTROSE 5%-WATER - 50 ML IVPB ONE (06:00)
[2019-04-22] MEDS ORDERED: DEXTROSE 5%-WATER - 50 ML IVPB ONE (06:11)
[2019-04-22] MEDS ORDERED: ceFAZolin SODIUM 1 GM VIAL ONE (06:11)
[2019-04-22] MEDS ORDERED: INDOMETHACIN 50 MG RECTAL SUPPOSITORY PR ONE (07:00)
[2019-04-22] MEDS ORDERED: HYDROmorphone HCl 2 MG/ML VIAL IVPUSH PRN (07:30)
--- NOTE | 2019-04-22 07:33 | PN ---
Physical Exam: SUBJECTIVE: Patient seen and examined OBJECTIVE: Vital Signs Period Temp Pulse Resp BP Sys/Mcgregor Pulse Ox Last 24 Hr 97.9 F-99.0 F 59-75 18-20 97-147/53-68 98-99 GENERAL: The patient is awake, alert, and fully oriented, in no acute distress. HEAD: Normal with no signs of trauma. EYES: PERRL, extraocular movements intact, sclera anicteric, conjunctiva clear. No ptosis. ENT: Ears normal, nares patent, oropharynx clear without exudates, moist mucous membranes. NECK: Trachea midline, full range of motion, supple. LUNGS: Breath sounds equal, clear to auscultation bilaterally, no wheezes, no crackles, no accessory muscle use. HEART: Regular rate and rhythm, S1, S2 without murmur, rub or gallop. ABDOMEN: Soft, nontender, nondistended, normoactive bowel sounds, no guarding, no rebound, no hepatosplenomegaly, no masses. EXTREMITIES: 2+ pulses, warm, well-perfused, no edema. NEUROLOGICAL: Cranial nerves II through XII grossly intact. Normal speech, gait not observed. PSYCH: Normal mood, normal affect. SKIN: Warm, dry, normal turgor, no rashes or lesions noted Laboratory Results - last 24 hr 04/21/19 04/21/19 04/21/19 12:30 12:30 12:30 WBC 6.7 RBC 3.88 Hgb 10.9 Hct 32.6 D MCV 84.1 MCH 28.1 MCHC 33.4 RDW 16.5 H Plt Count 240 MPV 9.3 Absolute Neuts (auto) 4.5 Neutrophils % 66.9 Lymphocytes % 23.9 D Monocytes % 6.8 Eosinophils % 1.8 D Basophils % 0.6 Nucleated RBC % 0 PT with INR 12.30 INR 1.04 Sodium 141 Potassium 4.2 Chloride 108 H Carbon Dioxide 26 Anion Gap 8 BUN 17.2 Creatinine 0.6 Est GFR (CKD-EPI)AfAm 139.78 Est GFR (CKD-EPI)NonAf 120.61 Random Glucose 80 Calcium 8.7 Magnesium Total Bilirubin 0.2 AST 21 ALT 44 Alkaline Phosphatase 93 Total Protein 7.5 Albumin 3.6 Lipase 197 Beta HCG, Quant < 1.0 Urine Color Urine Appearance Urine pH Ur Specific [place] Urine Protein Urine Glucose (UA) Urine Ketones Urine Blood Urine Nitrite Urine Bilirubin Urine Urobilinogen Ur Leukocyte Esterase Urine WBC (Auto) Urine RBC (Auto) Urine Casts (Auto) U Epithel Cells (Auto) Urine Bacteria (Auto) Urine HCG, Qual Blood Type Antibody Screen 04/21/19 04/21/19 04/21/19 12:30 13:03 13:03 WBC RBC Hgb Hct MCV MCH MCHC RDW Plt Count MPV Absolute Neuts (auto) Neutrophils % Lymphocytes % Monocytes % Eosinophils % Basophils % Nucleated RBC % PT with INR INR Sodium Potassium Chloride Carbon Dioxide Anion Gap BUN Creatinine Est GFR (CKD-EPI)AfAm Est GFR (CKD-EPI)NonAf Random Glucose Calcium Magnesium Total Bilirubin AST ALT Alkaline Phosphatase Total Protein Albumin Lipase Beta HCG, Quant Urine Color Yellow Urine Appearance Clear Urine pH 6.0 Ur Specific [place] 1.011 Urine Protein Negative Urine Glucose (UA) Negative Urine Ketones Negative Urine Blood 2+ H Urine Nitrite Negative Urine Bilirubin Negative Urine Urobilinogen 0.2 Ur Leukocyte Esterase Trace Urine WBC (Auto) 3 Urine RBC (Auto) 1 Urine Casts (Auto) 0 U Epithel Cells (Auto) 1.2 Urine Bacteria (Auto) 97.9 Urine HCG, Qual Positive Blood Type A POSITIVE Antibody Screen Negative 04/21/19 04/21/19 04/21/19 14:20 17:36 17:36 WBC 10.7 H RBC 3.87 Hgb 10.9 Hct 33.1 MCV 85.5 MCH 28.2 MCHC 33.0 RDW 16.6 H Plt Count 234 MPV 9.5 Absolute Neuts (auto) 9.2 H Neutrophils % 85.8 H D Lymphocytes % 9.5 D Monocytes % 4.2 Eosinophils % 0.3 D Basophils % 0.2 Nucleated RBC % 0 PT with INR INR Sodium 139 Potassium 4.1 Chloride 107 Carbon Dioxide 27 Anion Gap 6 L BUN 15.1 Creatinine 0.6 Est GFR (CKD-EPI)AfAm 139.78 Est GFR (CKD-EPI)NonAf 120.61 Random Glucose 98 Calcium 8.4 L Magnesium 2.6 H Total Bilirubin 0.1 L AST 15 ALT 42 Alkaline Phosphatase 84 Total Protein 7.1 Albumin 3.7 Lipase Beta HCG, Quant < 1.0 Urine Color Urine Appearance Urine pH Ur Specific [place] Urine Protein Urine Glucose (UA) Urine Ketones Urine Blood Urine Nitrite Urine Bilirubin Urine Urobilinogen Ur Leukocyte Esterase Urine WBC (Auto) Urine RBC (Auto) Urine Casts (Auto) U Epithel Cells (Auto) Urine Bacteria (Auto) Urine HCG, Qual Blood Type Antibody Screen Active Medications Generic Name Dose Route Start Last Admin Trade Name Freq PRN Reason Stop Dose Admin Hydromorphone HCl 1 mg 04/22/19 07:30 Dilaudid Vial - IVPUSH Q3H PRN PAIN LEVEL 6-10 Lactated Ringer's 1,000 ml in 1,000 mls @ 125 mls/hr 04/21/19 21:45 04/22/19 03:18 Lactated Ringers Solution IV 125 mls/hr ASDIR YEHUDA Administration Pantoprazole Sodium 40 mg 04/22/19 10:00 Protonix Iv IVPUSH DAILY YEHUDA ASSESSMENT/PLAN: Patient presents with abdominal pain 2/2 choledocholithiasis causing biliary colic; associated bleeding at sphincterotomy site noted. Dr. Schwab is GI on case. She is stable, going for ERCP today, and pain appears controlled. # Abdominal pain 2/2 biliary colic 2/2 choledocholithiasis s/p stenting x2 -Surgical history noted; GI consult noted. Going for ERCP for stone removal. Resume diet per GI. -LR @100, GI ppx, NPO, Pain control with IV dilaudid -Monitor for post procedure pancreatitis; CMP and lipase in AM # Bleeding from spincterotomy site -Management per GI; review scope report # Hx RA -Resume biologics as OP # Bacturia with +LE -Will discuss urinary sx with pt and tx empirically if indicated; followup cx
[2019-04-22 08:18] LABS: INR 1.05 (0.83-1.09); PROTHROMBIN TIME (PATIENT) 12.4 SEC (9.7-13.0)
[2019-04-22] MEDS ORDERED: PANTOPRAZOLE SODIUM 40 MG VIAL IVPUSH SCH (10:00)
[2019-04-22] MEDS ORDERED: MIDAZOLAM HCL 2 MG/2 ML SINGLE DOSE VIAL ONE (10:13)
[2019-04-22] MEDS ORDERED: IOHEXOL 300 MG/ML INFUS..BTL IV ONE (10:59)
--- NOTE | 2019-04-22 11:31 | PN ---
Progress Note (short form) - Note Progress Note: GI Procedure Note; Please see ERCP report. Stent and residual stone fragment removed. NO bleeding. If lunch is tolerated Rosangela can be discharged today. Problem List - Problems (1) Bleeding from sphincterotomy site Code(s): K91.841 - POSTPROC HEMOR OF A DGSTV SYS ORG FOLLOWING OTHER PROCEDURE (2) Abdominal pain, RUQ Code(s): R10.11 - RIGHT UPPER QUADRANT PAIN (3) Biliary colic Code(s): K80.50 - CALCULUS OF BILE DUCT W/O CHOLANGITIS OR CHOLECYST W/O OBST (4) Choledocholithiasis Code(s): K80.50 - CALCULUS OF BILE DUCT W/O CHOLANGITIS OR CHOLECYST W/O OBST (5) Cholestasis during Code(s): O26.619 - LIVER AND BILIARY TRACT DISORD IN , UNSP TRIMESTER; K83.1 - OBSTRUCTION OF BILE DUCT (6) Hx laparoscopic cholecystectomy Code(s): Z90.49 - ACQUIRED ABSENCE OF OTHER SPECIFIED PARTS OF DIGESTIVE TRACT (7) Rheumatoid arthritis Code(s): M06.9 - RHEUMATOID ARTHRITIS, UNSPECIFIED
--- NOTE | 2019-04-22 13:03 | PN ---
Physical Exam: SUBJECTIVE: Patient seen and examined OBJECTIVE: Vital Signs Period Temp Pulse Resp BP Sys/Mcgregor Pulse Ox Last 24 Hr 97.4 F-99.0 F 59-74 14-20 97-147/52-68 99-100 GENERAL: The patient is awake, alert, and fully oriented, in no acute distress. HEAD: Normal with no signs of trauma. EYES: PERRL, extraocular movements intact, sclera anicteric, conjunctiva clear. No ptosis. ENT: Ears normal, nares patent, oropharynx clear without exudates, moist mucous membranes. NECK: Trachea midline, full range of motion, supple. LUNGS: Breath sounds equal, clear to auscultation bilaterally, no wheezes, no crackles, no accessory muscle use. HEART: Regular rate and rhythm, S1, S2 without murmur, rub or gallop. ABDOMEN: Soft, nontender, nondistended, normoactive bowel sounds, no guarding, no rebound, no hepatosplenomegaly, no masses. EXTREMITIES: 2+ pulses, warm, well-perfused, no edema. NEUROLOGICAL: Cranial nerves II through XII grossly intact. Normal speech, gait not observed. PSYCH: Normal mood, normal affect. SKIN: Warm, dry, normal turgor, no rashes or lesions noted Laboratory Results - last 24 hr 04/21/19 04/21/19 04/21/19 12:30 12:30 12:30 WBC RBC Hgb Hct MCV MCH MCHC RDW Plt Count MPV Absolute Neuts (auto) Neutrophils % Lymphocytes % Monocytes % Eosinophils % Basophils % Nucleated RBC % PT with INR 12.30 INR 1.04 Sodium 141 Potassium 4.2 Chloride 108 H Carbon Dioxide 26 Anion Gap 8 BUN 17.2 Creatinine 0.6 Est GFR (CKD-EPI)AfAm 139.78 Est GFR (CKD-EPI)NonAf 120.61 Random Glucose 80 Calcium 8.7 Magnesium Total Bilirubin 0.2 AST 21 ALT 44 Alkaline Phosphatase 93 Total Protein 7.5 Albumin 3.6 Lipase 197 Beta HCG, Quant < 1.0 Urine Color Urine Appearance Urine pH Ur Specific [place] Urine Protein Urine Glucose (UA) Urine Ketones Urine Blood Urine Nitrite Urine Bilirubin Urine Urobilinogen Ur Leukocyte Esterase Urine WBC (Auto) Urine RBC (Auto) Urine Casts (Auto) U Epithel Cells (Auto) Urine Bacteria (Auto) Urine HCG, Qual Blood Type A POSITIVE Antibody Screen Negative 04/21/19 04/21/19 04/21/19 13:03 13:03 14:20 WBC RBC Hgb Hct MCV MCH MCHC RDW Plt Count MPV Absolute Neuts (auto) Neutrophils % Lymphocytes % Monocytes % Eosinophils % Basophils % Nucleated RBC % PT with INR INR Sodium Potassium Chloride Carbon Dioxide Anion Gap BUN Creatinine Est GFR (CKD-EPI)AfAm Est GFR (CKD-EPI)NonAf Random Glucose Calcium Magnesium Total Bilirubin AST ALT Alkaline Phosphatase Total Protein Albumin Lipase Beta HCG, Quant < 1.0 Urine Color Yellow Urine Appearance Clear Urine pH 6.0 Ur Specific [place] 1.011 Urine Protein Negative Urine Glucose (UA) Negative Urine Ketones Negative Urine Blood 2+ H Urine Nitrite Negative Urine Bilirubin Negative Urine Urobilinogen 0.2 Ur Leukocyte Esterase Trace Urine WBC (Auto) 3 Urine RBC (Auto) 1 Urine Casts (Auto) 0 U Epithel Cells (Auto) 1.2 Urine Bacteria (Auto) 97.9 Urine HCG, Qual Positive Blood Type Antibody Screen 04/21/19 04/21/19 04/22/19 17:36 17:36 06:15 WBC 10.7 H RBC 3.87 Hgb 10.9 Hct 33.1 MCV 85.5 MCH 28.2 MCHC 33.0 RDW 16.6 H Plt Count 234 MPV 9.5 Absolute Neuts (auto) 9.2 H Neutrophils % 85.8 H D Lymphocytes % 9.5 D Monocytes % 4.2 Eosinophils % 0.3 D Basophils % 0.2 Nucleated RBC % 0 PT with INR 12.40 INR 1.05 Sodium 139 Potassium 4.1 Chloride 107 Carbon Dioxide 27 Anion Gap 6 L BUN 15.1 Creatinine 0.6 Est GFR (CKD-EPI)AfAm 139.78 Est GFR (CKD-EPI)NonAf 120.61 Random Glucose 98 Calcium 8.4 L Magnesium 2.6 H Total Bilirubin 0.1 L AST 15 ALT 42 Alkaline Phosphatase 84 Total Protein 7.1 Albumin 3.7 Lipase Beta HCG, Quant Urine Color Urine Appearance Urine pH Ur Specific [place] Urine Protein Urine Glucose (UA) Urine Ketones Urine Blood Urine Nitrite Urine Bilirubin Urine Urobilinogen Ur Leukocyte Esterase Urine WBC (Auto) Urine RBC (Auto) Urine Casts (Auto) U Epithel Cells (Auto) Urine Bacteria (Auto) Urine HCG, Qual Blood Type Antibody Screen Active Medications Generic Name Dose Route Start Last Admin Trade Name [place] PRN Reason Stop Dose Admin Hydromorphone HCl 1 mg 04/22/19 07:30 Dilaudid Vial - IVPUSH Q3H PRN PAIN LEVEL 6-10 Lactated Ringer's 1,000 ml in 1,000 mls @ 125 mls/hr 04/21/19 21:45 04/22/19 03:18 Lactated Ringers Solution IV 125 mls/hr ASDIR [facility] Administration ASSESSMENT/PLAN:
[2019-04-22 14:42] VITALS: BP 107/61; PULSE 64; TEMP 98.8
--- NOTE | 2019-04-22 15:19 | DS ---
Physical Exam: SUBJECTIVE: Patient seen and examined at the bedside. Ate well, denies any nausea or vomiting. OBJECTIVE: Vital Signs Period Temp Pulse Resp BP Sys/Mcgregor Pulse Ox Last 24 Hr 97.4 F-99.0 F 59-74 14-20 97-147/52-68 99-100 PHYSICAL EXAM GENERAL: The patient is awake, alert, and fully oriented, in no acute distress. HEAD: Normal with no signs of trauma. EYES: PERRL, extraocular movements intact, sclera anicteric, conjunctiva clear. ENT: Ears normal, nares patent, oropharynx clear without exudates, moist mucous membranes. NECK: Trachea midline, full range of motion, supple. LUNGS: Breath sounds equal, clear to auscultation bilaterally, no wheezes, no crackles, no accessory muscle use. HEART: Regular rate and rhythm, S1, S2 without murmur, rub or gallop. ABDOMEN: Soft, nontender, nondistended, EXTREMITIES: no edema. NEUROLOGICAL: Normal speech, gait not observed. PSYCH: Normal mood, normal affect. SKIN: Warm, dry, normal turgor, no rashes or lesions noted. LABS Laboratory Results - last 24 hr 04/21/19 04/21/19 04/21/19 14:20 17:36 17:36 WBC 10.7 H RBC 3.87 Hgb 10.9 Hct 33.1 MCV 85.5 MCH 28.2 MCHC 33.0 RDW 16.6 H Plt Count 234 MPV 9.5 Absolute Neuts (auto) 9.2 H Neutrophils % 85.8 H D Lymphocytes % 9.5 D Monocytes % 4.2 Eosinophils % 0.3 D Basophils % 0.2 Nucleated RBC % 0 PT with INR INR Sodium 139 Potassium 4.1 Chloride 107 Carbon Dioxide 27 Anion Gap 6 L BUN 15.1 Creatinine 0.6 Est GFR (CKD-EPI)AfAm 139.78 Est GFR (CKD-EPI)NonAf 120.61 Random Glucose 98 Calcium 8.4 L Magnesium 2.6 H Total Bilirubin 0.1 L AST 15 ALT 42 Alkaline Phosphatase 84 Total Protein 7.1 Albumin 3.7 Beta HCG, Quant < 1.0 04/22/19 06:15 WBC RBC Hgb Hct MCV MCH MCHC RDW Plt Count MPV Absolute Neuts (auto) Neutrophils % Lymphocytes % Monocytes % Eosinophils % Basophils % Nucleated RBC % PT with INR 12.40 INR 1.05 Sodium Potassium Chloride Carbon Dioxide Anion Gap BUN Creatinine Est GFR (CKD-EPI)AfAm Est GFR (CKD-EPI)NonAf Random Glucose Calcium Magnesium Total Bilirubin AST ALT Alkaline Phosphatase Total Protein Albumin Beta HCG, Quant HOSPITAL COURSE: Date of Admission:04/21/19 The patient was discharged from this hospital on 04/16, but returned to ED today with 2 days of worsening RUQ pain. She denies nausea/vomiting and fevers/ chills. You were admitted and treated with fluids and IV pain medication. Imaging X-ray: Report Reviewed (KUB: biliary stent seen-migrated lower since last image but remain in duct) Dr. Schwab performed an ERCP, Stent and residual stone fragment removed. NO bleeding. Lunch was tolerated Rosangela was discharged per Dr. Schwab. Patient given referrel to follow up with Dr. Schwab's office in a week, and to resume her medications. Date of Discharge: 04/22/19 Minutes to complete discharge: 60 Discharge Summary Reason For Visit: MIGRATION OF BILIARY STENT, ABDOMINAL PAIN Current Active Problems Abdominal pain (Acute) Bleeding from sphincterotomy site (Acute) Condition: Improved - Instructions Diet, Activity, Other Instructions: You came to the ER for Right Upper Quadrant pain x 2 days. You were treated with pain medication, and fluids. Dr. Schwab performed an ERCP. Stent and residual stone fragment removed. NO bleeding. Follow instructions per surgeon. Resume your normal diet as tolerated. Referrals: Emperatriz Schwab MD [Staff Physician] - 1 Week () Disposition: HOME - Home Medications Comprehensive Discharge Medication List: Ambulatory Orders Ursodiol [Actigall] 300 mg PO BID #60 capsule 12/21/18 Cimza 220 mg SQ .Q2WEEK 03/31/19 Pantoprazole Sodium [Protonix -] 40 mg PO DAILY #60 tablet.ec 04/16/19 Ursodiol [Actigal] 300 mg PO BID #60 capsule 04/16/19 This patient is new to me today: Yes Date on this admission: 04/22/19 Emergency Visit: Yes ED Registration Date: 04/21/19 Care time: The patient presented to the Emergency Department on the above date and was hospitalized for further evaluation of their emergent condition. Critical Care patient: No - Discharge Referral Referred to [facility] Med P.C.: No
--- NOTE | 2019-04-26 09:25 | PATH ---
Surgical Pathology Report Patient Name: DAVIS MATIAS Med. Rec. #: [id number] /Age/Gender: 1985 (Age: 34) / F Account: [id number] Location: [address] [place] [address]/[facility] Taken: 04/22/2019 Received: 04/25/2019 Reported: 04/26/2019 Physicians: Emperatriz Schwab M.D. Specimen(s) Received OLD STENT Clinical History Choledocholithiasis Final Diagnosis OLD STENT, REMOVAL: CONSISTENT WITH BILIARY STENT. MACROSCOPIC DIAGNOSIS. Electronically Signed Fifi Perea M.D. Gross Description Received fresh labeled "old stent" is a 14 cm in length blue, coiled portion of tubing, consistent with a biliary stent. No soft tissue is present. No sections are submitted, gross only. 04/25/2019 [facility]04/25/2019
== END 2019-04-22 16:29 | disposition home or self-care (01) | DRG 850 ==
LOC: JER 12:07 → JERBED 16:26 → J5S 18:43
PROVIDERS: ATTEND Nurse Practitioner Acute Care
PROC: 0FC98ZZ Extirpation of Matter from Common Bile Duct, Via Natural or Artificial Opening Endoscopic (ICD-10-PCS; 2019-04-22)
PROC: BF10YZZ Fluoroscopy of Bile Ducts using Other Contrast (ICD-10-PCS; 2019-04-22)
PROC: 0FPB8DZ Removal of Intraluminal Device from Hepatobiliary Duct, Via Natural or Artificial Opening Endoscopic (ICD-10-PCS; principal; 2019-04-22 10:00)
DX: T85.898A Other specified complication of other internal prosthetic devices, implants and grafts, initial encounter (principal); Y73.2 Prosthetic and other implants, materials and accessory gastroenterology and urology devices associated with adverse incidents; K91.841 Postprocedural hemorrhage of a digestive system organ or structure following other procedure; K80.50 Calculus of bile duct without cholangitis or cholecystitis without obstruction; M06.9 Rheumatoid arthritis, unspecified
CPT/HCPCS: 36415; 74018-TC-FY; 76000-TC-FY; 80053; 81003; 83690; 83735; 84702; 84703; 85025; 85610; 86850; 86900; 86901; 87086; 88300-TC; 99285-25; J7030

== ENCOUNTER 2019-10-09 19:52 | Emergency (ER) | payer OTHER ==
[2019-10-09] MEDS ORDERED: ACETAMINOPHEN 325 MG TABLET (FP) PO ONE (19:54)
[2019-10-09 20:00] VITALS: BP 118/59; PULSE 70; TEMP 98.5; BMI 25.4
[2019-10-09] MEDS ORDERED: CYCLOBENZAPRINE HCL 5 MG TABLET PO ONE (20:02)
[2019-10-09] MEDS ORDERED: ACETAMINOPHEN 500 MG TABLET (FP) ONE (20:02)
[2019-10-09] MEDS ORDERED: LIDOCAINE 5% TOPICAL PATCH TP ONE (20:02)
[2019-10-09] MEDS ORDERED: LIDOCAINE 5% TOPICAL PATCH ONE (20:05)
[2019-10-09] MEDS ORDERED: CYCLOBENZAPRINE HCL 10 MG TABLET (FP) ONE (20:05)
--- NOTE | 2019-10-09 20:56 | PDOC ---
Documentation entered by Ruchi Beth SCRIBE, acting as scribe for Casie Travis MD. Casie Travis MD: This documentation has been prepared by the Kirit arias Xhesika, SCRIBE, under my direction and personally reviewed by me in its entirety. I confirm that the documentation accurately reflects all work, treatment, procedures, and medical decision making performed by me. History of Present Illness - General Chief Complaint: Injury Stated Complaint: PLAYING SOCCER, FELL BACK HITTING BACK AND HEAD Time Seen by Provider: 10/09/19 19:54 History Source: Patient Exam Limitations: No Limitations - History of Present Illness Initial Comments: 10/09/19 20:07 HPI The patient is a 34 year old female with a past medical history of rheumatoid arthritis on certolizumab (LD 04/18), cholecystitis s/p laproscopic cholecystectomy and choledocholithiasis s/p ERCP and stent, who presents to the ED with headache, dizziness and back pain s/p fall at 6:30pm while playing soccer. The patient states she was was playing soccer, tripped, fell backwards and hit her head and upper back on a hard wooden floor. Pt states she might have lost consciousness for 1 minute. Denies fever, chills, chest pain, SOB, palpitations, weakness, N, V, D, abdominal pain, bladder and bowel problems, focal weakness/paresthesias, leg swelling/pain, rash, wounds. Allergies: None Past Medical History/PSH: Social history: Lives with family. No tobacco, ETOH or drug use. Meds: as documented in EMR Family history: noncontributory Review of systems Constitutional: no fevers or chills. No weakness HEENT: no headache or dizziness. No congestion. No visual/hearing disturbances. CVS: no cp or syncope. Resp: no sob. No cough. Gastrointestinal: no abdominal pain, nausea, vomiting, diarrhea. Genitourinary: no urinary sx, hematuria. MUSCULOSKELETAL: No joint pain and swelling. No neck pain. +back pain. SKIN: no redness or skin changes, no discharge, no rash. No wounds. Hematologic: no easy bruising/bleeding. NEUROLOGIC: +headache, + dizziness. No altered mental status. No weakness, numbness or tingling. Psych: no anxiety or depression Allergic/Immunologic: no allergies All other systems reviewed and negative, or as documented in HPI. Physical exam General: GCS 15 NAD, well appearing HEENT: +occipital tenderness. PERRL, EOMI. Airway intact. No battles sign or raccoon eyes. No e/o ocular. Dentition intact. No e/o septal hematoma, nasal bridge stable. No hemotympanum. Neck: neck supple, no midline C spine tenderness or deformity, ROM intact. No anterior mass or crepitus, trachea midline. Resp: Lungs clear bilaterally Chest: no clavicle or chest wall tenderness or crepitus CVS: RRR, 2+ pulses throughout. Abdomen: Abdomen soft, nontender, nondistended. Back: + diffuse tenderness along thoracic. no lumbar spine tenderness. FROM, no stepoffs. MSK: Pelvis stable, Extremities symmetric, no focal areas of tenderness or deformities, proximal and distally; no pain on axial loading. FROM in all extrem. Neuro: Alert, oriented appropriately. CN II-XII grossly symmetric and intact. no focal neuro deficits. Sensation and strength intact throughout. Gait normal/ stable. Skin: intact, normal color and well perfused. no ecchymosis or wounds. 10/09/19 20:09 10/09/19 20:44 Past History - Past Medical History Allergies/Adverse Reactions: Allergies Allergy/AdvReac Type Severity Reaction Status Date / Time No Known Allergies Allergy Verified 10/09/19 19:54 Home Medications: Ambulatory Orders Cimza 220 mg SQ .Q2WEEK 03/31/19 Cyclobenzaprine HCl [Flexeril 10 mg] 10 mg PO TID PRN #12 tablet 10/09/19 Lidocaine 5% Patch [Lidoderm Patch -] 1 patch TP DAILY PRN #7 patch 10/09/19 Asthma: No Cancer: No Cardiac Disorders: No COPD: No Diabetes: No HTN: No Liver Disease: Yes (NAFLD) Seizures: No Thyroid Disease: No Other medical history: RHUEMATOID ARTHRITIS - Surgical History Cholecystectomy: Yes (LAPAROSCOPIC) - Reproductive History (#): 2 Para: 2 - Immunization History Immunization Up to Date: No - Psycho Social/Smoking Cessation Hx Smoking History: Never smoked Have you smoked in the past 12 months: No Information on smoking cessation initiated: No Hx Alcohol Use: No Drug/Substance Use Hx: No Substance Use Type: None Hx Substance Use Treatment: No *Physical Exam - Vital Signs Last Vital Signs Temp Pulse Resp BP Pulse Ox 98.5 F 70 18 118/59 L 100 10/09/19 19:56 10/09/19 19:56 10/09/19 19:56 10/09/19 19:56 10/09/19 19:56 ED Treatment Course - RADIOLOGY Radiology Studies Ordered: Category Date Time Status HEAD CT WITHOUT CONTRAST [CT] Stat CT Scan 10/09/19 20:01 Taken SPINE-THORACIC [RAD] Stat Radiology 10/09/19 20:02 Taken - Medications Given in the ED: ED Medications Discontinued Medications Generic Name Dose Route Start Last Admin Trade Name Freq PRN Reason Stop Dose Admin Acetaminophen 1,000 mg 10/09/19 19:54 10/09/19 20:03 Tylenol - PO 10/09/19 19:55 1,000 mg ONCE ONE Administration Cyclobenzaprine HCl 10 mg 10/09/19 20:02 10/09/19 20:13 Cyclobenzaprine Hcl PO 10/09/19 20:03 10 mg ONCE ONE Administration Lidocaine 1 patch 10/09/19 20:02 10/09/19 20:13 Lidoderm Patch - TP 10/09/19 20:03 1 patch ONCE ONE Administration Medical Decision Making - Medical Decision Making 10/09/19 20:46 Vital Signs Temp Pulse Resp BP Pulse Ox 98.5 F 70 18 118/59 L 100 10/09/19 19:56 10/09/19 19:56 10/09/19 19:56 10/09/19 19:56 10/09/19 19:56 VS reviewed wnl DDX ICH/SDH, contusion, closed head injury, concussion, compression fx, back sprain, lumbago neuro intact, GCS 15 low mechanism of falling due to head impact, ?LOC for brief period, CT head to eval for ICH/head injury/ skull fx negative for acute [employer]IST pathology/bleed/skull fx T spine xray with normal alignment, no fx or subluxation gait stable, no focal neuro deficits. given lido patch, tylenol for analgesia, flexeril for spasms, on reassessment, feels improved, back pain improved ambulatory w/o difficulty instructions for closed head injury, supportive care and analgesia and rest. rx meds prn for back pain/headache. fall prevention safety reviewed. Pt to be discharged in stable condition. Patient made aware of clinical impression, treatment recommendations and disposition plan, return precautions discussed (including but not limited to new or persistent/worsening symptoms, pain, fevers, or signs of infection, chest pain, respiratory distress, inability to tolerate oral intake, dehydration, syncope, or neurologic changes) . Follow up with PMD as recommended, follow up information provided, take medications as instructed for duration of time. continue with supportive care, avoid triggers and precipitants. All questions answered to patient's satisfaction and expressed understanding and comfort with this. At the time of discharge, the patient is alert, clinically improved, tolerating po and verbalizes understanding of instructions, satisfied with the care received and felt comfortable with the plan. Patient does not suffer from an acute life- threatening medical condition at this time and is safe for outpatient follow- up. 10/09/19 20:55 Discharge - Discharge Information Problems reviewed: Yes Clinical Impression/Diagnosis: Thoracic back sprain Qualifiers: Encounter type: initial encounter Qualified Code(s): S23.9XXA - Sprain of unspecified parts of thorax, initial encounter Closed head injury Qualifiers: Encounter type: initial encounter Qualified Code(s): S09.90XA - Unspecified injury of head, initial encounter Condition: Stable Disposition: HOME - Admission No - Additional Discharge Information Prescriptions: Cyclobenzaprine HCl [Flexeril 10 mg] 10 mg PO TID PRN #12 tablet PRN Reason: Muscle Spasms Lidocaine 5% Patch [Lidoderm Patch -] 1 patch TP DAILY PRN #7 patch PRN Reason: Pain - Follow up/Referral [place] [facility] [place] [facility] [Provider Group] [facility] [place] [facility] [Provider Group] - Patient Discharge Instructions Patient Printed Discharge Instructions: DI for Closed Head Injury, DI for Thoracic Back Pain Additional Instructions: You most likely have musculoskeletal strain/sprain of your middle back Avoid heavy lifting or strenuous activity to minimize further injury This should heal over the next 3-5 days. your xrays were negative for injuries your CT head was negative for bleed or fracture, this is likely a concussion which will take time to heal Follow up with your primary care doctor within 48-72 hours. Rest. Take Acetaminophen (Tylenol) every 4-6 hours, as needed, for pain. Often individuals develop a headache associated with nausea in the days/hours after a head injury. This is called a concussion and does not warrant a return to the ED UNLESS: you develop significant worsening of pain, profuse vomiting, dizziness, changes in vision, difficulty walking/speaking, weakness or numbness to your extremities. RICE rest ice elevate the affected area Rest, Ice (20 minutes at a time, 3 times a day), Compression (DAVID wrap or splint ), Elevation (above the heart). Apply ice to the area for 10 minutes every 2 hours for the first 2 days after the injury to reduce swelling. continue with range of motion exercises, as this will facilitate the healing process; avoid being bed bound and immobile. If you have any worsening of symptoms, including severe pain/swelling/redness/ numbness/changes in sensation/weakness/paralysis or any other concerns please return to the Emergency Department immediately. You were given a copy of the results from any tests performed today in the Emergency Department which have results available. Show these to your doctor(s). Some of the tests we sent may not have results yet so please call or have your doctor call the Emergency Department to follow up on all results. Please continue taking your home medications as directed. Do not use alcohol when taking any medication ( especially antibiotics, tylenol or other pain medication) unless you check with the doctor or pharmacist. -flexeril is a muscle relaxant, take three times a day as needed may cause sleepiness, do not drive or operate machinery or take with alcohol. -topical lidoderm patch to the area affected, 12 hours on and 12 hours off.. -May take tylenol 650 to 975 mg every 6 hours as needed for mild to moderate pain, available over the counter. This does not require narcotics, as it will precipitate injuries and falls. Please follow up with your primary doctor(s) within the next 1 week, but seek medical care sooner if your symptoms persist or worsen. Please call as soon as possible for an appointment. If you cannot follow up with your doctor please return to the Emergency Department for any urgent issues. Follow up with your primary care physician in 1 week if symptoms persist, or with orthopedics specialists if needed, referrals have been provided. ------ Lo ms probable es que tenga esguince / esguince musculoesqueltico de la parte media de la espalda Evite levantar objetos pesados ??o realizar actividades extenuantes para minimizar ms lesiones. [place] debera sanar en los prximos 3-5 [place]. nicki radiografas fueron negativas por lesiones celeste bharathi de CT fue negativa para sangrado o fractura, esta es probablemente daisah conmocin cerebral que gabino tiempo en sanar Chris un seguimiento con celeste mdico de atencin primaria dentro de las 48-72 horas. [place]. [place] acetaminofn (Tylenol) cada 4-6 horas, segn sea necesario , para el dolor. A menudo, las personas desarrollan un dolor de bharathi asociado con nuseas en los wis[place] / horas despus de daisha lesin en la bharathi. [place] se llama conmocin cerebral y no garantiza un retorno al ED A MENOS QUE: desarrolle un empeoramiento significativo del dolor, vmitos profusos, mareos, cambios en la visin, dificultad para caminar / hablar, debilidad o entumecimiento en las extremidades. ARROZ descanso hielo elevar la sandie afectada [place], hielo (20 minutos a la vez, 3 veces al da), compresin (envoltura o frula DAVID), elevacin (por encima del corazn). Aplique hielo en el sofia danielle 10 minutos cada 2 horas danielle los primeros 2 wiseman despus de la lesin para reducir la hinchazn. contine con los ejercicios de rango de movimiento, ya que esto facilitar el proceso de curacin; evite estar en cama e inmvil. Si tiene algn empeoramiento de los sntomas, incluido dolor intenso / hinchazn / enrojecimiento / entumecimiento / cambios en la sensacin / debilidad / parlisis o cualquier otra inquietud, regrese al Departamento de emergencias de inmediato. Recibi daisha copia de los resultados de cualquier prueba realizada hoy en el Departamento de Emergencia que tenga resultados disponibles. Mustrelos a celeste (s) mdico (s). Es posible que algunas de las pruebas que enviamos an no tengan resultados, as que llame o solicite a celeste mdico que llame al Departamento de emergencias para rosa seguimiento a todos los resultados. Contine tomando nicki medicamentos caseros segn las indicaciones. No use alcohol cuando est tomando algn medicamento ( especialmente antibiticos, tylenol u otro medicamento para el dolor) a menos que lo consulte con el mdico o farmacutico. -flexeril es un relajante muscular, gabino magali veces al da segn sea necesario puede causar somnolencia, no conduzca ni opere maquinaria ni lo tome con alcohol. -parche tpico de lidoderm en el sofia afectada, 12 horas encendido y 12 horas apagado. -Puede gabino tylenol 650 a 975 mg cada 6 horas segn sea necesario para el dolor leve a moderado, disponible sin receta mdica. [place] no requiere narcticos , ya que precipitar lesiones y cadas. Chris un seguimiento con celeste (s) mdico (s) primario (s) dentro de la prxima semana, oscar busque atencin mdica antes si nicki sntomas persisten o empeoran. Por favor llame lo antes posible para daisha donavan. Si no puede hacer un seguimiento con celeste mdico, regrese al Departamento de emergencias por cualquier problema urgente. Chris un seguimiento con celeste mdico de atencin primaria en 1 semana si los sntomas persisten, o con especialistas en ortopedia si es necesario, se le brown proporcionado referencias Print Language: [place] - Post Discharge Activity
== END 2019-10-09 21:11 | disposition home or self-care (01) ==
LOC: FER 19:52
DX: S23.9XXA Sprain of unspecified parts of thorax, initial encounter (principal); S09.90XA Unspecified injury of head, initial encounter; W18.39XA Other fall on same level, initial encounter; Y93.66 Activity, soccer; Y92.322 Soccer field as the place of occurrence of the external cause
CPT/HCPCS: 70450-TC; 72070-TC-FY; 81025; 99282-25

== ENCOUNTER 2019-10-31 16:57 | Emergency (ER) | payer OTHER ==
[2019-10-31 17:08] VITALS: BP 104/68; PULSE 71; TEMP 97.8; BMI 25.4
[2019-10-31] MEDS ORDERED: METOCLOPRAMIDE HCL 10 MG TABLET (FP) PO ONE ×2 (17:09→17:12)
[2019-10-31] MEDS ORDERED: ACETAMINOPHEN 500 MG TABLET (FP) PO ONE (17:09)
--- NOTE | 2019-10-31 17:09 | PDOC ---
Rapid Medical Evaluation Chief Complaint: Headache Time Seen by Provider: 10/31/19 17:06 Medical Evaluation: Allergies Allergy/AdvReac Type Severity Reaction Status Date / Time No Known Allergies Allergy Verified 10/31/19 17:05 10/31/19 17:06 This patient had rapid medical evaluation in triage cc:headache HPI: Patient reports headache since Thursday States left sided headache after congestion. No relief from tylenol or ibuprofen PE: NAD unlabored breathing neuro: PERRLA, EOMI, no drooping Orders: urine preg, analgesia and antiemetic This patient will proceed to ed for further evaluation. Discharge Disposition - Diagnosis Headache - Referrals - Patient Instructions - Post Discharge Activity
[2019-10-31] MEDS ORDERED: ACETAMINOPHEN 500 MG TABLET (FP) ONE (17:12)
--- NOTE | 2019-10-31 17:28 | PDOC ---
History of Present Illness - General Chief Complaint: Headache Stated Complaint: HEADACHE Time Seen by Provider: 10/31/19 17:06 - History of Present Illness Initial Comments: 10/31/19 17:27 34-year-old female presents for 3 days of headache unrelieved with Motrin and Tylenol. Past History - Past Medical History Allergies/Adverse Reactions: Allergies Allergy/AdvReac Type Severity Reaction Status Date / Time No Known Allergies Allergy Verified 10/31/19 17:05 Home Medications: Ambulatory Orders Cimza 220 mg SQ .Q2WEEK 03/31/19 Cyclobenzaprine HCl [Flexeril 10 mg] 10 mg PO TID PRN #12 tablet 10/09/19 Lidocaine 5% Patch [Lidoderm Patch -] 1 patch TP DAILY PRN #7 patch 10/09/19 Amox-Tr/K Cl [Augmentin - 875Mg Tablet] 1 tab PO BID #20 tablet 10/31/19 Budesonide [Rhinocort Allergy] 1 spray NS ONCE #1 spray.pump 10/31/19 Asthma: No Cancer: No Cardiac Disorders: No COPD: No Diabetes: No HTN: No Liver Disease: Yes (NAFLD) Seizures: No Thyroid Disease: No - Surgical History Cholecystectomy: Yes (LAPAROSCOPIC) - Reproductive History (#): 2 Para: 2 - Immunization History Immunization Up to Date: No - Psycho Social/Smoking Cessation Hx Smoking History: Never smoked Have you smoked in the past 12 months: No Information on smoking cessation initiated: No Hx Alcohol Use: No Drug/Substance Use Hx: No Substance Use Type: None Hx Substance Use Treatment: No Review of Systems - Review of Systems Constitutional: No: Fever Neurological: Yes: Headache *Physical Exam - Vital Signs Last Vital Signs Temp Pulse Resp BP Pulse Ox 97.8 F 71 18 104/68 100 10/31/19 17:05 10/31/19 17:05 10/31/19 17:05 10/31/19 17:05 10/31/19 17:05 - Physical Exam 10/31/19 17:28 GENERAL: The patient is awake, alert, and fully oriented, in no acute distress. HEAD: Normal with no signs of trauma. EYES: sclera anicteric, conjunctiva clear. ENT: Ears normal tympanic membranes normal oropharynx clear uvula midline NECK: Normal range of motion LUNGS: Breath sounds equal, clear to auscultation bilaterally. No wheezes, and no crackles. HEART: S1 and S2 without murmur, rub or gallop. ABDOMEN: Soft, nontender, normoactive bowel sounds. No guarding, no rebound. No masses. EXTREMITIES: Normal range of motion, no edema. No clubbing or cyanosis. No cords, erythema, or tenderness. NEUROLOGICAL: Cranial nerves II through XII grossly intact. PSYCH: Normal mood, normal affect. SKIN: Warm, Dry, normal turgor, no rashes or lesions noted. ED Treatment Course - RADIOLOGY Radiology Studies Ordered: Category Date Time Status HEAD CT WITH CONTRAST [CT] Stat CT Scan 10/31/19 17:27 Ordered - Medications Given in the ED: ED Medications Discontinued Medications Generic Name Dose Route Start Last Admin Trade Name Freq PRN Reason Stop Dose Admin Acetaminophen 1,000 mg 10/31/19 17:09 10/31/19 17:18 Tylenol - PO 10/31/19 17:10 1,000 mg ONCE ONE Administration Metoclopramide HCl 10 mg 10/31/19 17:09 10/31/19 17:18 Reglan - PO 10/31/19 17:10 10 mg ONCE ONE Administration Medical Decision Making - Medical Decision Making 10/31/19 18:56 We will treat for sinusitis follow-up with primary care physician 10/31/19 18:57 Area of headache and CAT scan correlate to sinusitis will treat for bacterial sinusitis Discharge - Discharge Information Problems reviewed: Yes Clinical Impression/Diagnosis: Headache, Sinusitis Condition: Stable Disposition: HOME - Admission No - Follow up/Referral Referrals: Reji Kumar MD [Staff Physician] - - Patient Discharge Instructions Additional Instructions: Please take the antibiotics and use the nasal spray as directed. Return to the emergency room for worsening symptoms and without fail follow-up with your primary care physician in 1 to 2 days for further evaluation and treatment options. - Post Discharge Activity
[2019-10-31] MEDS ORDERED: AMOX TR/POT CLAV 875MG/125MG TABLETS (FP) ONE (19:06)
[2019-10-31] MEDS ORDERED: IBUPROFEN 600 MG TABLET (FP) PO ONE (19:06)
== END 2019-10-31 19:08 | disposition home or self-care (01) ==
LOC: JERFT 16:57
DX: J01.90 Acute sinusitis, unspecified (principal); K76.0 Fatty (change of) liver, not elsewhere classified
CPT/HCPCS: 70450-TC; 99284-25

== ENCOUNTER 2024-04-19 08:32 | Emergency (ER) | payer OTHER ==
[2024-04-19 08:55] VITALS: BP 110/65; PULSE 70; RESP 18; TEMP 99.1; BMI 26.2
[2024-04-19] MEDS ORDERED: FAMOTIDINE 20 MG TABLET ONE (09:06)
[2024-04-19] MEDS ORDERED: diphenhydrAMINE HCL 25 MG CAPSULE (FP) PO ONE (09:06)
[2024-04-19] MEDS ORDERED: DEXAMETHASONE SOD PHOSPHATE 10 MG/1 ML VIAL ONE (09:09)
[2024-04-19] MEDS: diphenhydrAMINE HCL 25 MG CAPSULE (FP) PO ONE (09:37)
[2024-04-19] MEDS: FAMOTIDINE 20 MG TABLET PO ONE (09:37)
[2024-04-19] MEDS: DEXAMETHASONE 0.5 MG TABLET PO ONE (09:42)
== END 2024-04-19 12:24 | disposition home or self-care (01) ==
LOC: JER 08:32
DX: R21 Rash and other nonspecific skin eruption (principal); R22.0 Localized swelling, mass and lump, head; L29.9 Pruritus, unspecified; L53.9 Erythematous condition, unspecified; T50.995A Adverse effect of other drugs, medicaments and biological substances, initial encounter
CPT/HCPCS: 99283-25

== ENCOUNTER 2025-04-07 13:15 | Emergency (ER) | payer OTHER ==
[2025-04-07 13:34] VITALS: TEMP 97.9; BMI 26.4
[2025-04-07 15:13] LABS: EPI CELLS 21 /uL (0-25.1); HYALINE CASTS 1 /uL (0-3.1); URINE APPEARANCE TURBID; URINE BACTERIA 3750 /uL (0-1359); URINE BILIRUBIN NEGATIVE (NEGATIVE); URINE COLOR YELLOW; URINE GLUCOSE (UA) NEGATIVE (NEGATIVE); URINE KETONE 1+ (NEGATIVE); URINE LEUK ESTERASE 2+ (NEGATIVE); URINE NITRITE NEGATIVE (NEGATIVE); URINE PROTEIN 1+ (NEGATIVE); URINE RBC 42 /uL (0-23.9); URINE UROBILINOGEN 0.2 mg/dL (0.2-1.0); URINE WBC 1078 /uL (0-25.8)
[2025-04-07] MEDS ORDERED: ONDANSETRON 4 MG/2 ML VIAL ONE (15:30)
[2025-04-07] MEDS: ONDANSETRON 4 MG/2 ML VIAL IVPUSH ONE (15:37)
[2025-04-07] MEDS: SODIUM CHLORIDE 0.9% 500 ML INFUS.BAG IV ONE (15:42)
[2025-04-07] MEDS ORDERED: ACETAMINOPHEN INJECTION 100 ML ONE (15:47)
[2025-04-07 15:50] LABS: ABSOLUTE IMMATURE GRANULOCYTES 0.03 x10^3/uL (0.0-0.031); BASOPHILS # 0.02 x10^3/uL (0.01-0.08); EOSINOPHIL % 0.7 % (0.7-5.8); EOSINOPHILS # 0.05 x10^3/uL (0.04-0.36); MCHC 31.7 g/dl (32.2-35.5); MEAN CELL VOLUME 83.4 fl (79.4-94.8); MEAN PLT VOLUME 11.7 fl (9.4-12.3); MONOCYTE # 0.68 x10^3/uL (0.24-0.86); MONOCYTE % 9.4 % (4.7-12.5); RDW 16.4 % (12.1-16.8)
[2025-04-07] MEDS: ACETAMINOPHEN 1000 MG/100 ML BAG IVPB ONE (15:52)
[2025-04-07 16:26] LABS: CO2 23.0 mmol/L (21-32); GLUCOSE,RANDOM 96.0 mg/dL (74-106)
[2025-04-07 16:28] LABS: HIV INTERPRETATION NEGATIVE (NEGATIVE)
[2025-04-07 16:30] LABS: HCV DIAGNOSTIC IN-HOUSE W/RFLX NON-REACTIVE (NONREACTIVE)
[2025-04-07 16:30] LABS: CREATININE 0.7 mg/dL (0.55-1.3); SGOT/AST 21.0 U/L (15-37); SGPT/ALT 45.0 U/L (13-61)
[2025-04-07 16:31] LABS: TOT PROT 7.1 g/dl (6.4-8.2)
[2025-04-07 16:33] LABS: ALK PHOS 90.0 U/L (45-117)
[2025-04-07 18:00] VITALS: BP 118/54; PULSE 65; RESP 16
[2025-04-07] MEDS ORDERED: CEPHALEXIN MONOHYDRATE 500 MG CAPSULE (UD) ONE (20:03)
[2025-04-07] MEDS: CEPHALEXIN MONOHYDRATE 500 MG CAPSULE (UD) PO ONE (20:04)
== END 2025-04-07 20:05 | disposition home or self-care (01) ==
LOC: JER 13:15 → JERFT 13:15
PROC: 3E033NZ Introduction of Analgesics, Hypnotics, Sedatives into Peripheral Vein, Percutaneous Approach (ICD-10-PCS; principal; 2025-04-07)
PROC: 3E033GC Introduction of Other Therapeutic Substance into Peripheral Vein, Percutaneous Approach (ICD-10-PCS; 2025-04-07)
DX: O09.521 Supervision of elderly multigravida, first trimester (principal); O23.41 Unspecified infection of urinary tract in pregnancy, first trimester; O26.891 Other specified pregnancy related conditions, first trimester; R10.2 Pelvic and perineal pain; R11.0 Nausea; R39.15 Urgency of urination; O99.891 Other specified diseases and conditions complicating pregnancy; R30.0 Dysuria; Z3A.01 Less than 8 weeks gestation of pregnancy
CPT/HCPCS: 36415; 76817-TC; 80053; 81003; 84702; 84703; 85025; 86803; 86850; 86900; 86901; 87086; 87389; 99285-25

== ENCOUNTER 2025-06-28 07:07 | Inpatient (IN) | payer OTHER ==
[2025-06-28 07:21] VITALS: BP 105/62; PULSE 63; RESP 20; TEMP 97.7; BMI 26.8
[2025-06-28] MEDS: SODIUM CHLORIDE 1,000 ML IV STA (08:41)
[2025-06-28 08:42] LABS: ABSOLUTE IMMATURE GRANULOCYTES 0.10 x10^3/uL (0.0-0.031); BASOPHILS # 0.04 x10^3/uL (0.01-0.08); EOSINOPHIL % 1.2 % (0.7-5.8); EOSINOPHILS # 0.15 x10^3/uL (0.04-0.36); MCHC 33.3 g/dl (32.2-35.5); MEAN CELL VOLUME 92.9 fl (79.4-94.8); MEAN PLT VOLUME 11.2 fl (9.4-12.3); MONOCYTE # 0.67 x10^3/uL (0.24-0.86); MONOCYTE % 5.6 % (4.7-12.5); RDW 16.5 % (12.1-16.8)
[2025-06-28 08:53] LABS: INR 1.05 (0.83-1.09); PROTHROMBIN TIME (PATIENT) 11.5 SEC (9.7-13.0)
[2025-06-28 09:02] LABS: GLUCOSE,RANDOM 84.0 mg/dL (74-106)
[2025-06-28 09:03] LABS: TOT PROT 5.8 g/dl (6.4-8.2)
[2025-06-28 09:04] LABS: CO2 19.0 mmol/L (21-32)
[2025-06-28 09:05] LABS: ALK PHOS 70.0 U/L (40-150)
[2025-06-28 09:08] LABS: CREATININE 0.64 mg/dL (0.55-1.3); SGOT/AST 22.0 U/L (5-34); SGPT/ALT 29.0 U/L (0-55)
[2025-06-28 09:35] LABS: HIV INTERPRETATION NEGATIVE (NEGATIVE)
[2025-06-28 09:36] LABS: HCV DIAGNOSTIC IN-HOUSE W/RFLX NON-REACTIVE (NONREACTIVE)
[2025-06-28] MEDS ORDERED: ACETAMINOPHEN INJECTION 100 ML ONE (10:47)
[2025-06-28] MEDS: ACETAMINOPHEN 1000 MG/100 ML BAG IVPB ONE (10:55)
[2025-06-28 11:57] LABS: URINE APPEARANCE CLEAR; URINE BILIRUBIN NEGATIVE (NEGATIVE); URINE COLOR YELLOW; URINE GLUCOSE (UA) NEGATIVE (NEGATIVE); URINE KETONE 1+ (NEGATIVE); URINE LEUK ESTERASE NEGATIVE (NEGATIVE); URINE NITRITE NEGATIVE (NEGATIVE); URINE PROTEIN NEGATIVE (NEGATIVE); URINE UROBILINOGEN 0.2 mg/dL (0.2-1.0)
[2025-06-28] MEDS ORDERED: MORPHINE SULFATE 2 MG/ML SYRINGE ONE (13:06)
[2025-06-28] MEDS: morphine CARPU-JECT 2 MG/1 ML DISP.SYRIN IVPUSH ONE (13:18)
== END 2025-06-28 13:50 | disposition short-term general hospital (02) | DRG 566 ==
LOC: JER 07:07 → JERBED 11:49
PROVIDERS: ADMIT Obstetrics & Gynecology; ATTEND Obstetrics & Gynecology
DX: O46.92 Antepartum hemorrhage, unspecified, second trimester (principal); Z3A.19 19 weeks gestation of pregnancy
CPT/HCPCS: 36415; 76700-TC; 76815-TC; 76817-TC; 80053; 81003; 85025; 85610; 86803; 86850; 86900; 86901; 87086; 87389; 99285-25